=== PATIENT | female | born 1985 | race Caucasian/White ===

== ENCOUNTER 2019-09-05 17:18 | Outpatient (REF) | payer OTHER, SELFPAY ==
[2019-09-07 15:13] LABS: Chlamydia Result Negative (Negative)
[2019-09-09 14:06] LABS: GC Result Negative (Negative)
== END 2019-09-05 17:38 ==
LOC: LBN 17:18
PROVIDERS: Visit Provider Nurse Practitioner Women's Health
DX: Z11.3 Encounter for screening for infections with a predominantly sexual mode of transmission (principal)
CPT/HCPCS: 87491; 87591

== ENCOUNTER 2019-11-02 09:49 | Emergency (ER) | payer OTHER, SELFPAY ==
[2019-11-02 09:52] VITALS: BP 128/78; PULSE 98; RESP 20; TEMP 36.8; O2SAT 97
--- NOTE | 2019-11-02 10:40 | ED.GENADUL_ITS ---
Discharge Plan Disposition Patient Disposition: HOME Condition: Stable Discharge Details Chief Complaint: RespSymp Clinical Impression: Bronchitis Primary Care Provider: None,None ED Provider: Javier Murray Home Meds and New Rx's Prescriptions: New dexamethasone [dexamethasone] 4 MG tablet 8 mg PO DAILY 3 Days Qty: 6 RF: 0 albuterol sulfate 90 mcg/actuation HFA aerosol inhaler 2 - 4 puff IH Q4H PRN (Reason: shortness of breath or wheezing) Qty: 8 RF: 0 No Action Mirena 20 mcg/24 hours (5 yrs) 52 mg intrauterine device 1 device IY ONCE RF: 0 Discharge Instructions Instructions: Acute Bronchitis (ED) Additional Instructions: 1. Drink plenty of fluids. 2. Continue all medications as prescribed. 3. Acetaminophen 1000mg every 4 hours (up to 5 time a day) and/or ibuprofen 600mg every 6 hours as needed for fever or pain. 4. Albuterol 2 to 4 puffs every 4 as needed for difficulty breathing/cough. 5. Decadron 8 mg once a day for 3 days. Return to the Emergency Department (ED) if your condition worsens, does not improve as expected, or for ANY other concerns. Specifically, return if you have new or uncontrolled pain, worsening fever, difficulty breathing, vomiting, or are unable to drink fluids. Stand Alone Forms: Work Release Discharge Data Discharge Date/Time-TO BE ENTERED AT DEPARTURE: 11/02/19 10:37 Medical Decision Making Presents with increased work of breathing, cough, pleuritic chest pain with her cough, and bilateral upper extremity exanthem. Exam significant for diffuse wheezing with a prolonged expiratory phase, mild tachypnea, and a maculopapular rash on her upper extremities. She also has reproducible anterior bilateral chest wall tenderness. Discussed management with albuterol and Decadron. Discharged with prescription for both and a plan for outpatient PCP follow-up. Given usual and customary return instructions prior to discharge. Medical Records Medical records reviewed: Yes I reviewed the patient's medical records. HPI 38 with history of smoking. Presents with days of upper airway congestion, mild dyspnea, increased pain with coughing, and now a bilateral rash in her upper extremities which is pruritic in nature. Reports that a family member has the same constellation of symptoms and has been treated for this after evaluation. Denies significant dyspnea. She has had fevers. Denies palpitations, chest pressure, generalized abdominal pain, change in bowel habits, atypical lower extremity pain or swelling., General Date/Time Provider Initiated Documentation: 11/02/19 10:24 . Related Data Home Medications Medication Instructions Recorded Confirmed levonorgestrel 20 mcg/24 hours (5 1 device IY ONCE 09/05/19 11/02/19 yrs) 52 mg intrauterine device albuterol sulfate 2 - 4 puff IH Q4H PRN #8 gm 11/02/19 dexamethasone 8 mg PO DAILY 3 Days #6 tab 11/02/19 Previous Rx's Medication Instructions Recorded albuterol sulfate 2 - 4 puff IH Q4H PRN #8 gm 11/02/19 dexamethasone 8 mg PO DAILY 3 Days #6 tab 11/02/19 Allergies Allergy/AdvReac Type Severity Reaction Status Date / Time No Known Allergies Allergy Unverified 11/02/19 09:55 General Stated Complaint: RespSymp HARLEEN: 4 Review of Systems All systems reviewed & are unremarkable except as noted in HPI and below PFSH Social History Smoking/Tobacco Use Status: Current every day Tobacco Type: cigarettes Alcohol Intake: current Alcohol Intake frequency: a few times a week Drug use: Never Do you feel safe at home: Yes Do you feel safe in your relationship?: Yes Female Reproductive History Menstrual Duration of menses: 3-5 days control method: none History History 2 Para 2 Hx # Term Pregnancies Multiple births Hx # Pregnancies Ectopic pregnancies AB induced Hx Number of Living Children AB spontaneous Exam Narrative Exam Narrative: Nursing note and vital signs have been reviewed and noted. GENERAL: alert, active, no acute distress, well -hydrated, well-nourished HEENT: atraumatic/normocephalic, PERRLA, EOMI, conjunctiva clear, external ears/canals normal, nasal mucosa normal NECK: supple, full range of motion CARDIOVASCULAR: nl pulses, no edema PULMONARY: Mild tachypnea, diffuse wheezing with no focal deficit; anterior bilateral lower chest wall tenderness is reproduced subjective pain. ABDOMEN: non-distended EXTREMITY: normal muscle tone, all joints with FROM, no deformity NUERO: normal mentation, moving all extremities, normal stance and gait, PSYCH: alert and oriented SKIN: no new rashes or lesions Course Vital Signs Vital signs: Vital Signs Temperature 98.2 F 11/02/19 09:52 Pulse 98 H 11/02/19 09:52 Respiratory Rate 20 11/02/19 09:52 Blood Pressure 128/78 11/02/19 09:52 Pulse Oximetry 97 11/02/19 09:52 Temperature 98.2 F 11/02/19 09:52 Temperature Source Skin 11/02/19 09:52 Pulse 98 H 11/02/19 09:52 Respiratory Rate 20 11/02/19 09:52 Respiratory Effort Non-Labored 11/02/19 09:58 Respiratory Depth Normal 11/02/19 09:58 Blood Pressure 128/78 11/02/19 09:52 Blood Pressure Position Sitting 11/02/19 09:52 Pulse Oximetry 97 11/02/19 09:52 Oxygen Delivery Method Room Air 11/02/19 09:52 Oxygen Flow Rate 0 11/02/19 09:52 Pain Level 10 11/02/19 09:52 Comment 11/02/19 09:52
== END 2019-11-02 10:37 | disposition home or self-care (01) ==
PROVIDERS: Emergency Provider Emergency Medicine
DX: J20.9 Acute bronchitis, unspecified (principal); R07.81 Pleurodynia; B09 Unspecified viral infection characterized by skin and mucous membrane lesions; F17.210 Nicotine dependence, cigarettes, uncomplicated
CPT/HCPCS: 99283

== ENCOUNTER 2020-05-25 14:04 | Outpatient (REF) | payer OTHER, SELFPAY ==
[2020-05-25 20:02] LABS: Anion Gap 7.1 mmol/L (3-11); BUN 10 mg/dL (7-18); CO2 27.9 mmol/L (21.0-32.0); CREATININE 0.73 mg/dL (0.55-1.02); Calcium 9.2 mg/dL (8.5-10.1); Calculated LDL 88 mg/dL (<100); Chloride 105 mmol/L (98-107); Cholesterol 144 mg/dL (<200); Glucose 132 mg/dL (74-106); HDL Cholesterol 30 mg/dL (40-60); Potassium 4.2 mmol/L (3.5-5.1); Sodium 140 mmol/L (136-145); TSH (W/Ref FT4) 1.43 uIU/mL (0.36-3.74); Triglyceride 130 mg/dL (<150)
== END 2020-05-25 14:24 ==
LOC: NCHCN 14:04
PROVIDERS: PCP Nurse Practitioner Family; Visit Provider Nurse Practitioner Family
DX: Z00.00 Encounter for general adult medical examination without abnormal findings (principal)
CPT/HCPCS: 80048; 80061; 84443

== ENCOUNTER 2020-07-19 02:06 | Outpatient (CLI) | payer OTHER, SELFPAY ==
--- NOTE | 2020-07-19 08:30 | DI.US_ITS ---
EXAM: US PELVIS TRANSVAGINAL CLINICAL HISTORY: IUD surveillence, Pelvic pain,R10.2,Z97.5. TECHNIQUE: Transabdominal and transvaginal pelvic ultrasound was performed using standard protocol. COMPARISON: US OB US 2-3 TRIMESTER TRANSABD*P from 07/30/2010 FINDINGS: KIDNEYS: Kidneys are symmetric in size. No evidence of renal calculi. No evidence of hydronephrosis. No renal mass or cyst identified. UTERUS: Position: Anteverted. Size: 6.7 long by 3.2 AP by 4.3 transverse cm Endometrium: 0.5 cm. Normal for patient's menstrual status. There is an intrauterine device in good p osition. Myometrium: Unremarkable. Cervix: Unremarkable. OVARIES: Right: 3.2 x 1.8 x 2.0 cm Cyst or mass: None. Left: 2.7 x 2.1 x 2.1 cm Cyst or mass: Small follicular cyst. DOPPLER: Color: Symmetric and uniform flow to both ovaries. No hyperemia. CUL-DE-SAC: Free fluid: None. Other: None. IMPRESSION: 1. Normal sonographic appearance of the kidneys. 2. Normal-appearing uterus with endometrial stripe within normal limits. Intrauterine device in good position. 3. Unremarkable bilateral ovaries. DATA REPOSITORY:
== END 2020-07-19 02:26 ==
PROVIDERS: PCP Nurse Practitioner Family; Visit Provider Nurse Practitioner Women's Health
DX: R10.2 Pelvic and perineal pain (principal); Z97.5 Presence of (intrauterine) contraceptive device
CPT/HCPCS: 76830; 76856

== ENCOUNTER 2020-08-14 15:58 | Emergency (ER) | payer OTHER, SELFPAY ==
[2020-08-14 16:02] VITALS: BP 140/75; PULSE 101; RESP 17; TEMP 36.2; O2SAT 98
--- NOTE | 2020-08-14 16:14 | ED.GENADUL_ITS ---
Discharge Plan Disposition Patient Disposition: HOME Condition: Stable Discharge Details Clinical Impression: Acute thoracic myofascial strain, Acute lumbar myofascial strain Primary Care Provider: Yvette Ferreira ED Provider: Alondra Araya Home Meds and New Rx's Prescriptions: New methocarbamol 500 mg tablet 500 mg PO Q6H PRN (Reason: muscle spasm) Qty: 14 RF: 0 naproxen [Naprosyn] 500 mg tablet 500 mg PO BID PRN (Reason: pain) Qty: 14 RF: 0 Continued Mirena 20 mcg/24 hours (5 yrs) 52 mg intrauterine device 1 device IY ONCE RF: 0 Discharge Instructions Instructions: Low Back Strain (ED), Thoracic Back Strain (ED) Additional Instructions: Alternate ice and heat to the affected area(s) several times daily for 20 minutes at a time. Alternate tylenol and ibuprofen as needed and directed for pain. You can take the naproxen in place of ibuprofen but do not take together as they are both NSAIDs or anti-inflammatories. Take the methocarbamol and/or tramadol as needed and directed for pain not relieved with Tylenol or ibuprofen. Follow-up with your primary care doctor in 1 week. Return to the emergency department with any worsening or new concerning symptoms. Stand Alone Forms: Work Release Discharge Data Discharge Physician: Alondra Araya Medical Decision Making 1610 -- 35-year-old female with no significant past medical history who presents with midline middle to lower back pain that started after lifting a heavy piece of furniture at home 4 days ago. No cauda equina symptoms. No urinary symptoms. Vitals within normal limits. Patient drove herself to the ER. She has tenderness to palpation of her midline and paraspinal thoracic and lumbar spine and appears mild to moderately uncomfortable. Suspect most likely muscle strain but due to midline tenderness, will also obtain thoracic and lumbar spine x- rays to rule out fracture. Will give a dose of IM Toradol and reassess. test negative. 1750 -- X-rays reviewed and note spasm but no other acute bony abnormality. Patient reassessed and she feels much better. Patient able to ambulate and she feels much more comfortable. Will send home with a prescription for naproxen and methocarbamol. We will also give 2 tabs of tramadol to go. Advised to follow up with the primary care doctor for re-evaluation. Usual and customary return precautions given prior to discharge. Medical Records Medical records reviewed: Yes I reviewed the patient's medical records. Imaging Data Radiologic Study: Radiologist's impression: XR Thoracic Spine, 3 Views Exam date and time: 08/14/2020 5:13 PM Age: 35 years old Clinical indication: Other: Midline thoracic pain, r/o/fx TECHNIQUE: Imaging protocol: XR of the thoracic spine, 3 views. COMPARISON: No relevant prior studies available. FINDINGS: Vertebrae: There are no compression fractures or displaced fractures. There are no subluxations. The disc spaces appear maintained with minimal endplate spurring at a few lower thoracic levels. Soft tissues: Unremarkable. IMPRESSION: 1. No fractures or subluxations. 2. Minimal degenerative changes as described above. XR Lumbosacral Spine, 4 or 5 Views Exam date and time: 08/14/2020 5:15 PM Age: 35 years old Clinical indication: Other: Midline back pain, r/o/fx TECHNIQUE: Imaging protocol: XR of the lumbosacral spine, 4 or 5 views. COMPARISON: No relevant prior studies available. FINDINGS: Vertebrae: There is some straightening of the lumbar lordosis which could reflect muscle spasm or positioning. There are no subluxations. The disc spaces are maintained without degenerative changes. There are no displaced fractures or compression fractures. Both sacroiliac joints appear patent and symmetric. Soft tissues: Unremarkable. Organs: Incidentally noted is an intrauterine device is in the upper midline pelvis. IMPRESSION: 1. No fractures or subluxations. 2. No degenerative changes. HPI General Mode of arrival: ambulatory . Date/Time Provider Initiated Documentation: 08/14/20 16:00 . Limitations to Documentation: no limitations . Information obtained by: patient . HPI Narrative: Patient is a 35-year-old female presents with mid to lower back pain that occurred after lifting a heavy piece of furniture while working in her basement 4 days ago. Patient states she was lifting an approximately 50 pound piece of furniture when she was bending over and felt a sudden onset of midline mid to lower back pain. She states the pain is worse when going from sitting to standing position and with walking. She denies fever, abdominal pain, bowel or bladder incontinence, saddle anesthesia, leg pain, weakness or numbness. She took Tylenol today and has been using a heating pad without relief. Related Data Home Medications Medication Instructions Recorded Confirmed levonorgestrel 20 mcg/24 hours (5 1 device IY ONCE 09/05/19 08/14/20 yrs) 52 mg intrauterine device methocarbamol 500 mg PO Q6H PRN #14 tab 08/14/20 naproxen [Naprosyn] 500 mg PO BID PRN #14 tab 08/14/20 Previous Rx's Medication Instructions Recorded methocarbamol 500 mg PO Q6H PRN #14 tab 08/14/20 naproxen [Naprosyn] 500 mg PO BID PRN #14 tab 08/14/20 Allergies Allergy/AdvReac Type Severity Reaction Status Date / Time No Known Allergies Allergy Verified 07/10/20 15:00 General Stated Complaint: Nk/Back Pain HARLEEN: 4 Review of Systems All systems reviewed & are unremarkable except as noted in HPI and below Constitutional Constitutional: Reports as per HPI, Denies chills and Denies fever(s) Eyes Eyes: Denies blurry vision ENT Ears, Nose, Mouth, and Throat: Denies dizziness, Denies sore throat and Denies throat swelling Cardiovascular Cardiovascular: Denies chest pain and Denies dyspnea Respiratory Respiratory: Denies cough and Denies dyspnea Gastrointestinal Gastrointestinal: Denies abdominal pain, Denies diarrhea and Denies vomiting Genitourinary Genitourinary: Denies hematuria and Denies dysuria Musculoskeletal Musculoskeletal: Reports back pain and Denies numbness Integumentary/Breasts Skin/Breast: Denies lesions and Denies rash Neurologic Neurologic: Denies dizziness, Denies localized weakness and Denies numbness Allergic/Immunologic Allergic/Immunologic: Denies throat swelling [facility] Medical History (Updated 08/14/20 @ 17:41 by Alondra Araya DO) IUD (intrauterine device) in place (09/05/19) Mirena No significant past medical history Surgical History (Updated 08/14/20 @ 16:43 by Alondra Araya DO) No significant past surgical history Social History Smoking/Tobacco Use Status: Current every day Tobacco Type: cigarettes Alcohol Intake: current Alcohol Intake frequency: a few times a week Drug use: Never Do you feel safe at home: Yes Do you feel safe in your relationship?: Yes Female Reproductive History Menstrual Duration of menses: 3-5 days control method: none History History 2 Para 2 Hx # Term Pregnancies Multiple births Hx # Pregnancies Ectopic pregnancies AB induced Hx Number of Living Children AB spontaneous Exam Const General: cooperative, healthy appearing and no acute distress HENMT Head: normal to inspection Face and sinus: normal facial exam Eyes General: appearance normal, both eyes and all related structures EOM: EOM intact bilaterally Neck Neck: normal visual inspection and No submandibular swelling Lymphatic: no lymphadenopathy noted Chest Chest: normal inspection of the chest and no tenderness Resp Effort & Inspection: normal respiratory effort and able to speak in complete sentences Auscultation: clear to auscultation bilaterally Cardio Rate: regular rate Rhythm: regular rhythm GI Inspection: normal to inspection Palpation: soft, not firm, not rigid and nontender Auscultation: normal bowel sounds Back/Spine/Pelvis Thoracic/Lumbar Spine: thoracic and lumbar spine normal to inspection, paraspinal tenderness (Bilateral thoracic and lumbar), thoracic spinal tenderness and lumbar spinal tenderness Pelvis: no pain with anterior-posterior compression Skin General skin exam: no rashes or lesions noted Neuro General: patient alert, patient awake and patient oriented x3 Cognition: normal cognition Speech: speech normal Motor: muscle tone normal throughout Sensory Exam: no sensory deficits noted Extrem General: normal to inspection, full ROM, capillary refill normal, no calf tenderness bilaterally and no edema Psych Appearance: grossly normal Mental Status: mental status grossly normal Speech and Movement: speech and movement normal Affect: normal affect Course Vital Signs Vital signs: Vital Signs Temperature 97.2 F L 08/14/20 16:02 Pulse 101 H 08/14/20 16:02 Respiratory Rate 17 08/14/20 16:02 Blood Pressure 140/75 08/14/20 16:02 Pulse Oximetry 98 08/14/20 16:02 Temperature 97.2 F L 08/14/20 16:02 Temperature Source Tympanic 08/14/20 16:02 Pulse 101 H 08/14/20 16:02 Respiratory Rate 17 08/14/20 16:02 Respiratory Effort 08/14/20 16:06 Blood Pressure 140/75 08/14/20 16:02 Blood Pressure Position Sitting 08/14/20 16:02 Pulse Oximetry 98 08/14/20 16:02 Oxygen Delivery Method Room Air 08/14/20 16:02 Oxygen Flow Rate 0 08/14/20 16:02 Pain Level 9 08/14/20 16:02
--- NOTE | 2020-08-14 16:30 | DI.RAD_ITS ---
EXAM: XR THORACIC SPINE COMPLETE CLINICAL HISTORY: midline thoracic pain, r/o fx. TECHNIQUE: 2D digital imaging was performed. COMPARISON: No exams were available for comparison FINDINGS: BONES: There is no fracture or destructive lesion. The vertebral bodies and posterior elements are un remarkable. DISKS:Alignment is within normal limits. Interverebral disc spaces are maintained. There is minimal s purring from the vertebral endplates. SOFT TISSUE: Visualized lungs are clear. IMPRESSION: Unremarkable radiographs of the thoracic spine. DATA REPOSITORY: RADIATION DOSE DELIVERED:
--- NOTE | 2020-08-14 16:30 | DI.RAD_ITS ---
EXAM: XR LUMBAR SPINE COMPLETE CLINICAL HISTORY: midline back pain, r/o fx. TECHNIQUE: 2D digital imaging was performed. COMPARISON: No exams were available for comparison FINDINGS: BONES: No fracture or destructive lesion. Vertebral bodies are unremarkable. No facet hypertrophy isidro ntified. DISKS: Intervertebral disc spaces are maintained. ALIGNMENT: Lumbar spinal alignment is within normal limits. SOFT TISSUE: Normal. An IUD is incidentally noted. IMPRESSION: Unremarkable radiographs of the lumbar spine. DATA REPOSITORY: RADIATION DOSE DELIVERED:
[2020-08-14] MEDS: Ketorolac 60 MG/2 ML VIAL IM (17:08)
--- NOTE | 2020-08-14 17:35 | DI.VRAD_ITS ---
PROCEDURE INFORMATION: Exam: XR Lumbosacral Spine, 4 or 5 Views Exam date and time: 08/14/2020 5:15 PM Age: 35 years old Clinical indication: Other: Midline back pain, r/o/fx TECHNIQUE: Imaging protocol: XR of the lumbosacral spine, 4 or 5 views. COMPARISON: No relevant prior studies available. FINDINGS: Vertebrae: There is some straightening of the lumbar lordosis which could reflect muscle spasm or positioning. There are no subluxations. The disc spaces are maintained without degenerative changes. There are no displaced fractures or compression fractures. Both sacroiliac joints appear patent and symmetric. Soft tissues: Unremarkable. Organs: Incidentally noted is an intrauterine device is in the upper midline pelvis. IMPRESSION: 1. No fractures or subluxations. 2. No degenerative changes. Dictated and Authenticated by: Abdullahi Blount MD. Ordering:ISSAC Cantu MD
--- NOTE | 2020-08-14 17:38 | DI.VRAD_ITS ---
PROCEDURE INFORMATION: Exam: XR Thoracic Spine, 3 Views Exam date and time: 08/14/2020 5:13 PM Age: 35 years old Clinical indication: Other: Midline thoracic pain, r/o/fx TECHNIQUE: Imaging protocol: XR of the thoracic spine, 3 views. COMPARISON: No relevant prior studies available. FINDINGS: Vertebrae: There are no compression fractures or displaced fractures. There are no subluxations. The disc spaces appear maintained with minimal endplate spurring at a few lower thoracic levels. Soft tissues: Unremarkable. IMPRESSION: 1. No fractures or subluxations. 2. Minimal degenerative changes as described above. Dictated and Authenticated by: Abdullahi Blount MD. Ordering:ISSAC Cantu MD
[2020-08-14] MEDS: Methocarbamol 500 MG TAB (18:03)
[2020-08-14 18:04] VITALS: BP 117/71; PULSE 90; RESP 16; O2SAT 98
== END 2020-08-14 18:05 | disposition home or self-care (01) ==
PROVIDERS: Emergency Provider Physician Assistant; PCP Nurse Practitioner Family
DX: S29.012A Strain of muscle and tendon of back wall of thorax, initial encounter (principal); S39.012A Strain of muscle, fascia and tendon of lower back, initial encounter; X50.0XXA Overexertion from strenuous movement or load, initial encounter
CPT/HCPCS: 81025; 96372; 99284; 72072; 72110; 99285; J1885

== ENCOUNTER 2020-12-18 20:18 | Outpatient (REF) | payer BC, SELFPAY ==
[2020-12-18 20:04] LABS: Anion Gap 8.3 mmol/L (3-11); BUN 10 mg/dL (7-18); CO2 26.7 mmol/L (21.0-32.0); CREATININE 0.6 mg/dL (0.55-1.02); Calcium 9.1 mg/dL (8.5-10.1); Chloride 103 mmol/L (98-107); Glucose 103 mg/dL (74-106); Potassium 4.3 mmol/L (3.5-5.1); Sodium 138 mmol/L (136-145)
== END 2020-12-18 20:19 | disposition home or self-care (01) ==
LOC: NCHCN 20:18
PROVIDERS: PCP Nurse Practitioner Family; Visit Provider Nurse Practitioner Family
DX: R10.9 Unspecified abdominal pain (principal); N39.0 Urinary tract infection, site not specified
CPT/HCPCS: 80048; 87086

== ENCOUNTER 2021-01-13 09:43 | Emergency (ER) | payer BC, SELFPAY ==
--- NOTE | 2021-01-13 09:45 | DI.RAD_ITS ---
EXAM: XR KNEE RT 4V AP,LAT,BENJAMIN,PAT CLINICAL HISTORY: R medial pain. TECHNIQUE: 2D digital imaging was performed. COMPARISON: No exams were available for comparison FINDINGS: There is no evidence of fracture or joint effusion. No joint space narrowing. No bone density pritesh l. No osseous lesions. IMPRESSION: No significant radiographic findings. DATA REPOSITORY: RADIATION DOSE DELIVERED:
[2021-01-13 09:48] VITALS: BP 102/88; PULSE 101; RESP 18; TEMP 37.1; O2SAT 99
--- NOTE | 2021-01-13 10:00 | W.ED.GENAD ---
Discharge Plan Disposition Patient Disposition: HOME Condition: Improving Discharge Details Clinical Impression: Right knee sprain Primary Care Provider: Yvette Ferreira ED Provider: Kings Garcia Home Meds and New Rx's Prescriptions: Continued Mirena 20 mcg/24 hours (5 yrs) 52 mg intrauterine device 1 device IY ONCE RF: 0 Discharge Instructions Instructions: Knee Sprain (ED) Additional Instructions: Crutches and nonweightbearing while he continues to have pain. Wear knee brace while awake and out of bed. Elevate above the level of the heart to reduce pain and swelling, continue to ice 20 minutes at a time. You may use acetaminophen and or ibuprofen as needed for pain. Please call the orthopedic office for a follow-up appointment time. The office number is [phone]. Stand Alone Forms: Work Release Medical Decision Making 35-year-old female was walking her dog on a muddy ground when she slipped yesterday. She states her right knee deviated medially with the lower leg deviating laterally. She was not injured in any other way. She now has right medial knee pain and swelling. She will not tolerate exam for laxity of joint, but I am concerned for medial knee soft tissue derangement. Patient referred for x-ray, given acetaminophen and ice. Radiograph: No acute findings. Will place patient in hinged knee brace, crutches as needed. She will follow up with orthopedics for recheck given concern for internal derangement of the right knee. HPI General Mode of arrival: ambulatory. Date/Time Provider Initiated Documentation: 01/13/21 09:44. Limitations to Documentation: no limitations. Information obtained by: patient. History of Present Illness 35 year old F presents to the emergency department with the chief complaint of Right knee pain, described as moderate, Quality is described as dull and constant, and is localized to the right and lower extremity. Patient reports no radiation. Patient started experiencing this hour(s) and it has been constant. No relieving factors improve symptom(s), No exacerbating factors reported . Patient notes denies syncope. Patient did receive the following treatments prior to arrival, cold therapy Related Data Home Medications Medication Instructions Recorded Confirmed levonorgestrel 20 mcg/24 hours (6 1 device IY ONCE 09/05/19 01/13/21 yrs) 52 mg intrauterine device Allergies Allergy/AdvReac Type Severity Reaction Status Date / Time bee venom protein (honey bee) Allergy Severe Anaphylaxis Unverified 01/13/21 09:55 General Stated Complaint: Orthopedic HARLEEN: 3 Review of Systems Narrative: No other injury. Pain with walking. Has otherwise been well. 4 systems reviewed [facility] Medical History IUD (intrauterine device) in place (09/05/19) Mirena No significant past medical history Surgical History (Updated 08/14/20 @ 16:43 by Alondra Araya DO) No significant past surgical history Social History Smoking/Tobacco Use Status: Current every day Tobacco Type: cigarettes Smoking risk assessment performed?: Yes Alcohol Intake: current Alcohol Intake frequency: a few times a week Drug use: Never Do you feel safe at home: Yes Do you feel safe in your relationship?: Yes Female Reproductive History Menstrual Duration of menses: 3-5 days control method: none History History 2 Para 2 Hx # Term Pregnancies Multiple births Hx # Pregnancies Ectopic pregnancies AB induced Hx Number of Living Children AB spontaneous Exam Narrative Exam Narrative: GEN: awake, alert, oriented 3. Pleasant, well groomed, interactive. HEAD: Normocephalic, atraumatic ENT: Mucous membranes moist, oropharynx unremarkable, External ear exam unremarkablel EXT: Left lower extremity unremarkable. Right lower extremity with medial knee swelling and tenderness along the joint line. Patient is able to extend the knee against gravity. I do not appreciate laxity but exam is limited. Neuro: Grossly normal neurologic exam, conversant, interactive. Psych: Speech fluent, thoughts congruent, affect normal Course Vital Signs Vital signs: Vital Signs Temperature 37.1 C 01/13/21 09:48 Pulse 101 H 01/13/21 09:48 Respiratory Rate 18 01/13/21 09:48 Blood Pressure 102/88 01/13/21 09:48 Pulse Oximetry 99 01/13/21 09:48 Temperature 37.1 C 01/13/21 09:48 Temperature Source Temporal Artery Scan 01/13/21 09:48 Pulse 101 H 01/13/21 09:48 Respiratory Rate 18 01/13/21 09:48 Respiratory Effort Non-Labored 01/13/21 09:52 Blood Pressure 102/88 01/13/21 09:48 Blood Pressure Position Sitting 01/13/21 09:48 Pulse Oximetry 99 01/13/21 09:48 Oxygen Delivery Method Nasal Cannula 01/13/21 09:48 Pain Level 7 01/13/21 09:56
[2021-01-13] MEDS: Acetaminophen 500 MG TAB 1000 MG PO (10:03)
--- NOTE | 2021-01-13 10:53 | DI.VRAD_ITS ---
PROCEDURE INFORMATION: Exam: XR Left Knee Exam date and time: 01/13/2021 10:00 AM Age: 35 years old Clinical indication: Knee; Patient HX: Right medial pain TECHNIQUE: Imaging protocol: XR Left knee. Views: 4 or more views. COMPARISON: No relevant prior studies available. FINDINGS: Bones/joints: There is no evidence of acute fracture.There is no evidence of malalignment or dislocation. Soft tissues: Normal. IMPRESSION: There is no evidence of acute fracture.There is no evidence of malalignment or dislocation. Dictated and Authenticated by: Shaye Pittman MD. Ordering:TADEO Ku MD
== END 2021-01-13 11:12 | disposition home or self-care (01) ==
PROVIDERS: Emergency Provider Emergency Medicine; PCP Nurse Practitioner Family
DX: S83.411A Sprain of medial collateral ligament of right knee, initial encounter (principal); W01.0XXA Fall on same level from slipping, tripping and stumbling without subsequent striking against object, initial encounter
CPT/HCPCS: 29505; 99284; 73564; 99283

== ENCOUNTER 2021-05-16 10:29 | Emergency (ER) | payer BC, SELFPAY ==
[2021-05-16 10:47] VITALS: BP 128/75; PULSE 82; TEMP 37.5; O2SAT 97
[2021-05-16 10:56] LABS: Bilirubin Negative (Negative); Blood Trace-intact (Negative); Clarity Clear (Clear); Glucose Negative (Negative); Ketones Negative (Negative); Leukocyte Esterase Small (Negative); Nitrite Negative (Negative); Urobilinogen 0.2 EU/dL (Up TO 0.2)
--- NOTE | 2021-05-16 11:04 | ED.GENADUL_ITS ---
Discharge Plan Disposition Patient Disposition: HOME Condition: Good Discharge Details Clinical Impression: Abdominal pain Primary Care Provider: Yvette Ferreira ED Provider: Alexandra Del Valle Home Meds and New Rx's Prescriptions: New amoxicillin-pot clavulanate [Augmentin] 875-125 mg tablet 1 tab PO BID Qty: 20 RF: 0 Continued Mirena 20 mcg/24 hours (5 yrs) 52 mg intrauterine device 1 device IY ONCE RF: 0 Discharge Instructions Instructions: Abdominal Pain (ED) Additional Instructions: Take antibiotic as prescribed Tylenol and ibuprofen for pain control Please follow-up with your primary care physician Follow-up with your doctor regarding your ovarian cyst, this is unlikely causing her discomfort Use alternative contraception for protection if you choose to have intercourse of your control may not be effective while you are on antibiotic Yogurt daily while on antibiotic Return if fever, chills, or with any new or worsening complaints Discharge Data Discharge Date/Time-TO BE ENTERED AT DEPARTURE: 05/16/21 14:59 Medical Decision Making Right ovarian cyst, 2 cm, not likely contributing to patient's pain, discussed case with radiologist No obvious evidence of acute pathology and patient CT imaging, patient made aware to follow-up with primary care physician regarding sacroiliitis which is not located in the area of patient's discomfort No cervical motion tenderness Patient given a prescription for Augmentin empirically to cover diverticulitis should have persistent left lower quadrant pain for the last 2 weeks Recheck in 48 hours recommended Did confirm vaginal swab, patient declines risk of STD, I will treat her empirically for sexually transmitted disease as her exam is otherwise benign Return precautions discussed and patient expressed understanding Diagnostic labs do not show acute abnormality The white blood cells 5-10 white blood cells, no evidence of infection Patient declined chance of Medical Records Medical records reviewed: Yes I reviewed the patient's medical records. Lab Data Lab results reviewed: Yes I reviewed the patient's lab results. HPI General Mode of arrival: ambulatory . Date/Time Provider Initiated Documentation: 05/16/21 10:55 . Limitations to Documentation: no limitations . Information obtained by: patient . HPI Narrative: This very pleasant 35-year-old female presents with report of left lower quadrant abdominal pain for the past 2 weeks. Was evaluated by her doctor 2 weeks ago and diagnosed wit h suspected diverticulitis without imaging or diagnostic labs. The implemented diet changes and were going to reassess. She presents today as her pain worsened dramatically. She states that stabbing, left lower quadrant. Moving bowels without difficulty and denies blood in stool. Denies nausea or vomiting. Denies fever or chills. Is monogamous and sexually active with her , denies known sexually transmitted disease. Does have an IUD in place. Denies prior history of similar symptoms in the past. Pain is exacerbated with walking reportedly. Denies any urinary symptoms. Related Data Home Medications Medication Instructions Recorded Confirmed levonorgestrel 20 mcg/24 hours (6 1 device IY ONCE 09/05/19 05/16/21 yrs) 52 mg intrauterine device amoxicillin-pot clavulanate 1 tab PO BID #20 tab 05/16/21 [Augmentin] Previous Rx's Medication Instructions Recorded amoxicillin-pot clavulanate 1 tab PO BID #20 tab 05/16/21 [Augmentin] Allergies Allergy/AdvReac Type Severity Reaction Status Date / Time bee venom protein (honey bee) Allergy Severe Anaphylaxis Unverified 05/16/21 10:54 General Stated Complaint: Abd Prob HARLEEN: 3 Review of Systems All systems reviewed & are unremarkable except as noted in HPI and below PFSH Medical History IUD (intrauterine device) in place (09/05/19) Mirena No significant past medical history Surgical History (Updated 08/14/20 @ 16:43 by Alondra Araya DO) No significant past surgical history Social History Smoking/Tobacco Use Status: Current every day Tobacco Type: cigarettes Smoking risk assessment performed?: Yes Alcohol Intake: current Alcohol Intake frequency: holidays/special occasions only Drug use: Never Substance use type: does not use Do you feel safe at home: Yes Do you feel safe in your relationship?: Yes Female Reproductive History Menstrual Duration of menses: 3-5 days control method: none History History 2 Para 2 Hx # Term Pregnancies Multiple births Hx # Pregnancies Ectopic pregnancies AB induced Hx Number of Living Children AB spontaneous Exam Const General: cooperative and comfortable HENMT Mouth: oral mucosae normal Eyes Sclera: sclerae normal Resp Effort & Inspection: normal respiratory effort Auscultation: clear to auscultation bilaterally Cardio Rate: regular rate Other: Distal pulses intact GI Other: Tenderness with palpation to the suprapubic and left lower quadrant region, no rebound or guarding, no CVA tenderness, no abdominal bruit or pulsatile mass Other: No cervical motion tenderness or adnexal tenderness Skin General skin exam: no rashes or lesions noted Neuro General: patient alert and patient oriented x3 Course Vital Signs Vital signs: Vital Signs Temperature 37.5 C 05/16/21 10:47 Pulse 82 05/16/21 10:47 Blood Pressure 128/75 05/16/21 10:47 Pulse Oximetry 97 05/16/21 10:47 Temperature 37.5 C 05/16/21 10:47 Temperature Source Temporal Artery Scan 05/16/21 10:47 Pulse 82 05/16/21 10:47 Respiratory Effort Non-Labored 05/16/21 10:50 Blood Pressure 128/75 05/16/21 10:47 Blood Pressure Position Sitting 05/16/21 10:47 Pulse Oximetry 97 05/16/21 10:47 Oxygen Delivery Method Room Air 05/16/21 10:47 Oxygen Flow Rate 0 05/16/21 10:47 Pain Level 8 05/16/21 10:47 Lab/Test Results Lab/Test Results: Laboratory Tests Range/Units 05/16/21 05/16/21 10:45 11:02 Magnesium Cancelled Urine Color (Yellow) Yellow Urine Clarity (Clear) Clear Urine pH (5-8) 7.0 Ur Specific [place] (1.005-1.025) 1.020 Urine Protein (Negative) mg/dL Negative Urine Ketones (Negative) mg/dL Negative Urine Blood (Negative) Trace-intact H Urine Nitrite (Negative) Negative Urine Bilirubin (Negative) Negative Urine Urobilinogen (Up TO 0.2) EU/dL 0.2 Ur Leukocyte Esterase (Negative) Small H Urine Glucose (Negative) mg/dL Negative POC Urine Test Start: 05/16/21 10:44 Freq: Status: Complete Protocol: Document 05/16/21 10:54 TB (Rec: 05/16/21 10:54 TB [id number]) Test(Urine)-POC POC- Test(urine) Negative POC- Test(urine) Negative
[2021-05-16 11:05] LABS: Bacteria Few HPF (Negative); C & S Indicated? No/Sq. Contamination; Casts Negative LPF (Negative); Crystals Negative HPF (Negative); Epithelial Cells Moderate HPF (Negative); Mucus Negative (Negative); RBC 0-2 HPF (0-2)
[2021-05-16 11:21] LABS: Abs Immature Grans 0.12 10^3/uL (0.0-0.06); Absolute Eosinophil Count 0.33 10^3/uL (0.0-0.7); Absolute Lymphocyte Count 2.83 10^3/uL (1.2-3.4); Absolute Monocyte Count 0.62 10^3/uL (0.1-0.8); Absolute Neutrophil Count 7.94 10^3/uL (1.2-6.7); Basophils % 0.8; Eosinophils % 2.8; HCT 39.6 % (36.0-46.0); HGB 13.1 g/dL (11.2-15.7); Lymphocytes % 23.7; MCH 32.8 pg (27.0-33.0); MCHC 33.1 % (32.0-36.0); MCV 99.2 fL (80-95); MPV 9.7 fL (8.0-11.0); Monocytes % 5.2; Neutrophils % 66.5; Nucleated RBC 0 %; Platelet Count 350 10^3/uL (130-400); RBC 3.99 10^6/uL (3.93-5.22); RDW 12.3 % (11.7-14.6); RDW-SD 44.9 fL; WBC 11.94 10^3/uL (4.4-10.8)
[2021-05-16] MEDS: ACETAMINOPHEN 1,000 MG/100 ML BTL 400 MG IVPB (11:23)
[2021-05-16 11:37] LABS: ALT 40 U/L (14-59); AST 25 U/L (15-37); Albumin 4.2 g/dL (3.4-5.0); Alkaline Phosphatase 79 U/L (46-116); Anion Gap 10.8 mmol/L (3-11); BUN 10 mg/dL (7-18); Bilirubin, Total 0.3 mg/dL (0.2-1.0); CO2 26.2 mmol/L (21.0-32.0); CREATININE 0.6 mg/dL (0.55-1.02); Calcium 8.8 mg/dL (8.5-10.1); Chloride 103 mmol/L (98-107); Glucose 128 mg/dL (74-106); Sodium 140 mmol/L (136-145); Total Protein 7.7 g/dL (6.4-8.2)
[2021-05-16] MEDS: Omnipaque 350 MG/ML 50 ML BTL PO (12:31)
--- NOTE | 2021-05-16 12:36 | DI.CT_ITS ---
Exam(s) CT ABDOMEN PELVIS W EXAM: CT ABDOMEN PELVIS W CLINICAL HISTORY: LLQ abdominal pain. TECHNIQUE: Imaging Protocol: Axial computed tomography images with coronal and sagittal reformatted images were created and reviewed CONTRAST MATERIAL: Intravenous: Omnipaque 99cc Oral: None COMPARISON: No exams were available for comparison FINDINGS: VISUALIZED LUNG BASES: No significant nodules nor pleural effusions evident. ABDOMEN: There is no ascites. LIVER: There are no focal hepatic lesions evident . GALLBLADDER/BILIARY: No obvious gallbladder pathology. CBD is not dilated. PANCREAS: No evidence of pancreatic mass nor dilatation of the pancreatic duct. SPLEEN: Spleen is not enlarged. No obvious intrasplenic lesions. Splenic and portal veins are paten t. ADRENALS: There are no significant adrenal masses. KIDNEYS:There is a tiny 3 millimeter benign cortical cyst in the anterior left kidney. No other sign ificant focal left kidney findings. No findings in the opposite right kidney. No hydronephrosis on either side. No hydroureter. No obvious finding in the urinary bladder.. ABDOMINAL AORTA: Abdominal aorta is not enlarged. LYMPH NODES:There are few small para-aortic lymph nodes. The largest of these measures 1.2 cm ABDOMINAL WALL: Appearance of the anterior midline abdominal wall is probably hernia repair. No prom inent hernia at this time and no abnormal fluid collection at this level nor elsewhere in the abdomen and pelvis. GI: There is no evidence of bowel obstruction, free air, nor abscess. PELVIS: GI: No evidence of appendicitis.No evidence of sigmoid diverticulitis. LYMPH NODES: Few shotty lymph nodes are noted in both inguinal regions but no gross lymphadenopathy. REPRODUCTIVE: There is a T-shaped IUD in the uterine canal. This appears to be in satisfactory posit ion. There is a cyst in the right ovary which measures 2.2 by 2.0 cm. This probably follicular. No abnormal ovarian masses and no free fluid in the cul-de-sac and adnexal regions. URINARY BLADDER: No calculi nor obvious masses evident OSSEOUS: No significant osseous lesions. Increased density both sides the sacroiliac joints consistent with sacroiliitis. There is no ankylos is of the SI joints. IMPRESSION: 1. Evidence of previous anterior abdominal hernia repair. No evidence of obvious hernia at this time and no abnormal fluid collection or inflammatory changes in this region or elsewhere in the abdomen and pelvis. 2. No evidence of appendicitis nor diverticulitis. 3. There are slightly prominent para-aortic lymph nodes noted. These range up to 1.2 cm size there i s no lymphadenopathy in the pelvis. No splenomegaly. No ascites. 4. IUD in satisfactory position in the endometrial canal. 2 cm cyst in the right ovary is most proba sergey follicular. No abnormal free fluid in the pelvis. Sacroiliitis noted. RADIATION DOSE DELIVERED: 1,086.73mGy.cm Total DLP DATA REPOSITORY: All CT scans at this facility are submitted to the National Radiology Data Registry (NRDR) Dose Index Registry (DIR) with the [employer] (ACR). RADIATION OPTIMIZATION: All CT scans at this facility use at least one of these dose optimization te chniques: automated exposure control; mA and/or kV adjustment per patient size (includes targeted exa ms where dose is matched to clinical indication); or iterative reconstruction.
[2021-05-16] MEDS: Normal Saline - Diluent 50 ML VIAL IV (12:38)
[2021-05-16] MEDS: Omnipaque 350 MG/ML 100 ML BTL 99 ML IJ (12:41)
[2021-05-16 14:08] VITALS: BP 128/75; PULSE 82; RESP 16; TEMP 37.5; O2SAT 97
[2021-05-17 19:39] LABS: Chlamydia Result Negative (Negative); GC Result Negative (Negative)
== END 2021-05-16 14:59 | disposition home or self-care (01) ==
PROVIDERS: Emergency Provider Physician Assistant; PCP Nurse Practitioner Family
DX: R10.31 Right lower quadrant pain (principal); N83.201 Unspecified ovarian cyst, right side
CPT/HCPCS: 36415; 80053; 81025; 87491; 87591; 96360; 99285; 74177; 81003; 81015; 83735; 85025; 87480; 87510; 87660; 99284; J0131; J3490; Q9967

== ENCOUNTER 2021-08-05 15:04 | Outpatient (REF) | payer BC, SELFPAY ==
[2021-08-07 10:50] LABS: COVID-19 RT-PCR UVMMC Result Negative (Negative)
== END 2021-08-05 15:05 | disposition home or self-care (01) ==
LOC: LBN 15:04
PROVIDERS: PCP Nurse Practitioner Family; Visit Provider Physician Assistant
DX: Z20.822 Contact with and (suspected) exposure to COVID-19 (principal); J06.9 Acute upper respiratory infection, unspecified
CPT/HCPCS: U0003

== ENCOUNTER 2022-08-12 16:52 | Outpatient (REF) | payer BC, SELFPAY ==
[2022-08-12 17:52] LABS: Anion Gap 9.1 mmol/L (3-11); BUN 6 mg/dL (7-18); CO2 25.9 mmol/L (21.0-32.0); CREATININE 0.6 mg/dL (0.55-1.02); Calcium 9.2 mg/dL (8.5-10.1); Chloride 103 mmol/L (98-107); Estimated GFR 119.23 (mL/min/1.73m2); Glucose 137 mg/dL (74-106); Potassium 4.1 mmol/L (3.5-5.1); Sodium 138 mmol/L (136-145)
[2022-08-14 11:22] LABS: COVID-19 RT-PCR UVMMC Result Positive (Negative)
== END 2022-08-12 16:53 | disposition home or self-care (01) ==
LOC: LBN 16:52
PROVIDERS: PCP Nurse Practitioner Family; Visit Provider Nurse Practitioner Family
DX: Z20.822 Contact with and (suspected) exposure to COVID-19 (principal)
CPT/HCPCS: 80048; U0003

== ENCOUNTER 2022-12-08 16:57 | Outpatient (REF) | payer BC, SELFPAY ==
[2022-12-08 21:47] LABS: Abs Immature Grans 0.08 10^3/uL (0.0-0.06); Absolute Basophil Count 0.08 10^3/uL (0.0-0.2); Absolute Eosinophil Count 0.28 10^3/uL (0.0-0.7); Absolute Lymphocyte Count 3.42 10^3/uL (1.2-3.4); Absolute Monocyte Count 0.56 10^3/uL (0.1-0.8); Absolute Neutrophil Count 9.47 10^3/uL (1.2-6.7); Basophils % 0.6; HCT 40.3 % (36.0-46.0); HGB 13.5 g/dL (11.2-15.7); Immature Grans % 0.6; Lymphocytes % 24.6; MCH 31.8 pg (27.0-33.0); MCHC 33.5 % (32.0-36.0); MCV 95 fL (80-95); MPV 10.1 fL (8.0-11.0); Neutrophils % 68.2; Platelet Count 401 10^3/uL (130-400); RBC 4.24 10^6/uL (3.93-5.22); RDW-SD 41.6 fL; WBC 13.89 10^3/uL (4.4-10.8)
[2022-12-08 22:25] LABS: ALT 38 U/L (14-59); AST 24 U/L (15-37); Albumin 4.9 g/dL (3.4-5.0); Alkaline Phosphatase 89 U/L (46-116); Anion Gap 12.3 mmol/L (3-11); BUN 8 mg/dL (7-18); Bilirubin, Total 0.5 mg/dL (0.2-1.0); CO2 25.7 mmol/L (21.0-32.0); CREATININE 0.5 mg/dL (0.55-1.02); Chloride 99 mmol/L (98-107); Estimated GFR 124.58 (mL/min/1.73m2); Glucose 109 mg/dL (74-106); Sodium 137 mmol/L (136-145); Total Protein 8.1 g/dL (6.4-8.2)
[2022-12-08 22:34] LABS: Iron 65 ug/dL (50-170); Total Iron Binding Capacity 389 ug/dL (250-450); Transferrin Sat 17 % (15-50)
== END 2022-12-08 16:58 | disposition home or self-care (01) ==
LOC: LBN 16:57
PROVIDERS: PCP Nurse Practitioner Family; Visit Provider Nurse Practitioner Family
DX: R23.3 Spontaneous ecchymoses (principal); R79.89 Other specified abnormal findings of blood chemistry
CPT/HCPCS: 80053; 83540; 83550; 85025

== ENCOUNTER 2023-04-28 11:18 | Emergency (ER) | payer SELFPAY ==
[2023-04-28 11:21] VITALS: BP 142/89; PULSE 120; RESP 16; TEMP 36.9; O2SAT 98
[2023-04-28 12:09] LABS: Abs Immature Grans 0.13 10^3/uL (0.0-0.06); Absolute Basophil Count 0.12 10^3/uL (0.0-0.2); Absolute Eosinophil Count 0.54 10^3/uL (0.0-0.7); Absolute Monocyte Count 0.99 10^3/uL (0.1-0.8); Absolute Neutrophil Count 8.71 10^3/uL (1.2-6.7); Basophils % 0.9; HCT 38.3 % (36.0-46.0); HGB 12.9 g/dL (11.2-15.7); Lymphocytes % 22.8; MCH 32.3 pg (27.0-33.0); MCHC 33.7 % (32.0-36.0); MCV 96 fL (80-95); MPV 9.5 fL (8.0-11.0); Monocytes % 7.3; Platelet Count 358 10^3/uL (130-400); RDW 12.2 % (11.7-14.6); RDW-SD 42.1 fL; WBC 13.61 10^3/uL (4.4-10.8)
[2023-04-28 12:22] LABS: Hemoglobin A1C 6.8 % (<5.7)
[2023-04-28 12:23] LABS: ALT 56 U/L (14-59); AST 24 U/L (15-37); Albumin 3.6 g/dL (3.4-5.0); Alkaline Phosphatase 109 U/L (46-116); Anion Gap 10.6 mmol/L (3-11); BUN 6 mg/dL (7-18); Bilirubin, Total 0.5 mg/dL (0.2-1.0); CO2 26.4 mmol/L (21.0-32.0); CREATININE 0.9 mg/dL (0.55-1.02); Calcium 8.9 mg/dL (8.5-10.1); Chloride 101 mmol/L (98-107); Estimated GFR 84.97 (mL/min/1.73m2); Glucose 211 mg/dL (74-106); Potassium 3.8 mmol/L (3.5-5.1); Sodium 138 mmol/L (136-145); Total Protein 7.5 g/dL (6.4-8.2)
[2023-04-28] MEDS: Doxycycline Hyclate 100 MG CAP PO (12:49)
[2023-04-28 12:56] VITALS: BP 120/59; PULSE 92; RESP 18; O2SAT 99
--- NOTE | 2023-04-28 15:40 | NUR.NOTE ---
Nursing Note: Patient questioning when to start her new medication
--- NOTE | 2023-04-28 15:51 | ED.GENADUL_ITS ---
Discharge Plan Disposition Patient Disposition: Home Discharge Details Clinical Impression: Left foot infection, Hyperglycemia Primary Care Provider: Yvette Ferreira ED Provider: Alexandra Del Valle Home Meds and New Rx's Prescriptions: New metformin 500 mg tablet 500 mg PO BID Qty: 30 0RF doxycycline hyclate 100 mg capsule 100 mg PO BID Qty: 30 0RF Continued Mirena 20 mcg/24 hours (5 yrs) 52 mg intrauterine device 1 device IY ONCE amoxicillin-pot clavulanate [Augmentin] 875-125 mg tablet 1 tab PO BID Qty: 20 0RF Patient Comments: Rx finished Discharge Instructions Instructions: Diabetic Hyperglycemia (ED) Additional Instructions: Take antibiotic twice a day as prescribed Take the metformin twice a day Yogurt daily while on antibiotic Talk to your doctor about your A1c, 6.8 and your blood glucose is 211 here, I suspect he may be developing diabetes Elevate your foot is much as possible Use athlete's foot cream on your feet, twice a daily and allow exposure to air Should you develop fever, chills, significant spreading redness, you should be reassessed in the emergency department more urgently Make sure you follow-up with your doctor at your scheduled appointment Stand Alone Forms: Work Release Referrals: Brenda Huston [ [facility] STAFF PHYSICIAN] - 1 day Discharge Data Discharge Date/Time-TO BE ENTERED AT DEPARTURE: 04/28/23 12:57 Medical Decision Making 37-year-old female presenting with report of rash to left foot and bilateral upper extremities Concern for fungal infection and possibly secondary bacterial infection, fungal and wound cultures for aerobic bacteria pending Empirically started on doxycycline and will use topical antifungals Patient has A1c of 6.8 with a blood glucose of 211, will start on metformin, suspect type 2 diabetes Patient is alert and oriented, she is fairly stable, afebrile and has mild leukocytosis at 13,000 She is given a work note for the rest of the week off and will elevate her foot Return precautions were reviewed in detail and patient expressed understanding HPI General Date/Time Provider Initiated Documentation: 04/28/23 11:34 . HPI Narrative: This 37-year-old female presents with report of painful rash to left foot and hands. States it started about 3 days ago. Denies known traumatic injury. Denies history of similar symptoms in the past. Does states she has a history of eczema but states is very different. She states predominantly she is here because her left foot was becoming more painful. She denies any fever or chills. She denies any polyuria, polydipsia, polyphasia. She denies any known injury. Related Data Home Medications Medication Instructions Recorded Confirmed levonorgestrel 21 mcg/24 hours (8 1 device intrauterine ONCE 09/05/19 04/28/23 yrs) 52 mg intrauterine device (Mirena) amoxicillin 875 mg-potassium 1 tab PO BID #20 tabs 05/16/21 clavulanate 125 mg tablet (Augmentin) doxycycline hyclate 100 mg capsule 100 mg PO BID #30 caps 04/28/23 metformin 500 mg tablet 500 mg PO BID #30 tabs 04/28/23 Previous Rx's Medication Instructions Recorded amoxicillin 875 mg-potassium 1 tab PO BID #20 tabs 05/16/21 clavulanate 125 mg tablet (Augmentin) doxycycline hyclate 100 mg capsule 100 mg PO BID #30 caps 04/28/23 metformin 500 mg tablet 500 mg PO BID #30 tabs 04/28/23 Allergies Allergy/AdvReac Type Severity Reaction Status Date / Time bee venom protein (honey bee) Allergy Severe Anaphylaxis Unverified 04/28/23 11:26 General Stated Complaint: RashLesion HARLEEN: 4 PFSH All Active Problems (Updated 04/28/23 @ 12:48 by KHANG Crandall) Right knee sprain (Acute) Abdominal pain (Acute) Left foot infection (Acute) Hyperglycemia (Acute) IUD (intrauterine device) in place (Acute 09/05/19) Mirena Uterine cramping (Acute) Medical History IUD (intrauterine device) in place (09/05/19) Mirena No significant past medical history Surgical History (Updated 08/14/20 @ 16:43 by Alondra Araya DO) No significant past surgical history Social History Smoking/Tobacco Use Status: Current every day Tobacco Type: cigarettes Smoking risk assessment performed?: Yes Alcohol Intake: current Alcohol Intake frequency: holidays/special occasions only Drug use: Never Substance use type: does not use Do you feel safe at home: Yes Do you feel safe in your relationship?: Yes Female Reproductive History Menstrual Duration of menses: 3-5 days control method: none History History 2 Para 2 Hx # Term Pregnancies Multiple births Hx # Pregnancies Ectopic pregnancies AB induced Hx Number of Living Children AB spontaneous Course Vital Signs Vital signs: Vital Signs Temperature 36.9 C 04/28/23 11:21 Pulse 120 H 04/28/23 11:21 Respiratory Rate 16 04/28/23 11:21 Blood Pressure 142/89 H 04/28/23 11:21 Pulse Oximetry 98 04/28/23 11:21 Temperature 36.9 C 04/28/23 11:21 Temperature Source Oral 04/28/23 11:21 Pulse 92 H 04/28/23 12:56 Respiratory Rate 18 04/28/23 12:56 Respiratory Effort Normal 04/28/23 12:08 Blood Pressure 120/59 L 04/28/23 12:56 Blood Pressure Position Sitting 04/28/23 11:21 Pulse Oximetry 99 04/28/23 12:56 Oxygen Delivery Method Room Air 04/28/23 11:21 Oxygen Flow Rate 0 04/28/23 11:21 Pain Level 10 04/28/23 11:21 Lab/Test Results Lab/Test Results: Laboratory Tests Range/Units 04/28/23 04/28/23 04/28/23 11:59 11:59 11:59 WBC (4.4-10.8) 10^3/uL 13.61 H RBC (3.93-5.22) 10^6/uL 4.00 Hgb (11.2-15.7) g/dL 12.9 Hct (36.0-46.0) % 38.3 MCV (80-95) fL 96 H MCH (27.0-33.0) pg 32.3 MCHC (32.0-36.0) % 33.7 RDW (11.7-14.6) % 12.2 Plt Count (130-400) 10^3/uL 358 MPV (8.0-11.0) fL 9.5 Immature Gran % 1.0 Neutrophils % 64.0 Lymphocytes % 22.8 Monocytes % 7.3 Eosinophils % 4.0 Basophils % 0.9 Nucleated RBC % (0.0-0.3) % 0.0 Absolute Neutrophils (1.2-6.7) 10^3/uL 8.71 H Absolute Lymphocytes (1.2-3.4) 10^3/uL 3.10 Absolute Monocytes (0.1-0.8) 10^3/uL 0.99 H Absolute Eosinophils (0.0-0.7) 10^3/uL 0.54 Absolute Basophils (0.0-0.2) 10^3/uL 0.12 Sodium (136-145) mmol/L 138 Potassium (3.5-5.1) mmol/L 3.8 Chloride (98-107) mmol/L 101 Carbon Dioxide (21.0-32.0) mmol/L 26.4 Anion Gap (3-11) mmol/L 10.6 BUN (7-18) mg/dL 6 L Creatinine (0.55-1.02) mg/dL 0.9 Est GFR (CKD-EPI 2020) (mL/min/1.73m2) 84.97 Glucose (74-106) mg/dL 211 H Hemoglobin A1c (<5.7) % 6.8 H Calcium (8.5-10.1) mg/dL 8.9 Total Bilirubin (0.2-1.0) mg/dL 0.5 AST (15-37) U/L 24 ALT (14-59) U/L 56 Alkaline Phosphatase (46-116) U/L 109 Total Protein (6.4-8.2) g/dL 7.5 Albumin (3.4-5.0) g/dL 3.6
[2023-05-27 09:34] LABS: Fungus Smear No Fungi Seen
== END 2023-04-28 12:57 | disposition home or self-care (01) ==
PROVIDERS: Emergency Provider Physician Assistant; PCP Nurse Practitioner Family
DX: E11.65 Type 2 diabetes mellitus with hyperglycemia (principal); L08.9 Local infection of the skin and subcutaneous tissue, unspecified
CPT/HCPCS: 36416; 80053; 82962; 87102; 87206; 99283; 83036; 85025; 99284

== ENCOUNTER 2023-04-30 14:10 | Emergency (ER) | payer SELFPAY ==
[2023-04-30 14:18] VITALS: BP 138/82; PULSE 111; RESP 18; TEMP 36.9; O2SAT 99
--- NOTE | 2023-04-30 16:45 | DI.RAD_ITS ---
Exam(s) XR FOOT LT COMPLETE EXAM: XR FOOT LT COMPLETE CLINICAL HISTORY: Left foot infection. TECHNIQUE: 2D digital imaging was performed. Three views. COMPARISON: No exams were available for comparison FINDINGS: BONES: No acute fracture is present. No bony destructive lesion is seen. JOINTS: No dislocation present. SOFT TISSUE: Normal. IMPRESSION: Unremarkable radiographs of the left foot. DATA REPOSITORY: RADIATION DOSE DELIVERED:
--- NOTE | 2023-04-30 16:57 | W.ED.GENAD ---
Discharge Plan Disposition Patient Disposition: Home Condition: Stable Discharge Details Clinical Impression: Tinea pedis of left foot, Cellulitis in diabetic foot Primary Care Provider: Yvette Ferreira ED Provider: Yara Garcia Home Meds and New Rx's Prescriptions: Continued Mirena 20 mcg/24 hours (5 yrs) 52 mg intrauterine device 1 device IY ONCE amoxicillin-pot clavulanate [Augmentin] 875-125 mg tablet 1 tab PO BID Qty: 20 0RF Patient Comments: Rx finished metformin 500 mg tablet 500 mg PO BID Qty: 30 0RF doxycycline hyclate 100 mg capsule 100 mg PO BID Qty: 30 0RF Discharge Instructions Instructions: Athlete's Foot (ED), Cellulitis (ED) Additional Instructions: Keep foot clean and dry as much as possible. Continue using the topical antifungal. Continue using the antibiotic. You may place lambswool between your toes to keep them dry. You may also try Drysol which is a athlete's foot spray. May also consider applying Burow's solution to the area as a warm compress. Please follow-up with podiatry within the next 5 days. You were placed on a care management list to assist you in getting an appointment. X-ray is within normal limits and your labs are improving. Podiatry phone number [phone], Please call to make an appointment. If you are unable to get in with podiatry within the next 5 days or so please follow-up with your PCP. Follow up with primary care provider in 3-5 days. Return to ED sooner if any worsening or concerns. Increase oral fluids. Please take Tylenol or Ibuprofen with food every 4-6 hours as needed for pain and swelling. Referrals: Yvette Ferreiar [Primary Care Provider] - 3 days Discharge Data Discharge Date/Time-TO BE ENTERED AT DEPARTURE: 04/30/23 18:17 Medical Decision Making 37-year-old female presents to the ER with a chief complaint of left foot infection which seems to be getting worse. Patient was seen here 2 days ago and was prescribed doxycycline and instructed to use an bnsl-inn-gvywsjs athlete's foot fungal regimen. This first began with some sloughing off on her hands 3 weeks ago now it has included the bottom of her left foot and in between her toes. She does have multiple blister type lesions that are oozing to the plantar surface of her left foot. Denies any fever chills no ankle involvement. No heel tenderness. She is also noted to be newly diagnosed diabetic and was placed on metformin. We will repeat labs CBC CMP and lactate level. X-ray of foot ordered. Differential diagnosis includes tinea pedis superinfection, cellulitis most likely mixture of both, contact dermatitis, atopic dermatitis, psoriasis, CBC shows improvement of the white blood cell count 12.34 down from 13 absolute neutrophil 7.11 anion gap 11.3 glucose. Patient given a gram of Rocephin IV here. I did instruct her to continue with the doxycycline as previously prescribed and the topical antifungals. Patient was placed on a follow-up list for podiatry for the next 5 days for tinea pedis superinfection. I am concerned that patient may need debridement. Patient placed in a postop shoe with a bulky dressing. Discussed home care including to keep it clean and dry and let it air out daily stay off it is much as possible. Also instructed to place dressing such as lambswool in between toes to keep them dry. Verbalized understanding. This text was generated using Double Doodsation system, please disregard any oddities of phrase or misspellings. Medical Records Medical records reviewed: Yes I reviewed the patient's medical records. Imaging Data Radiologic Study: Imaging: X-Ray Radiologist's impression: TECHNIQUE: Imaging protocol: Radiologic exam of the left foot. Views: 3 or more views. COMPARISON: No relevant prior studies available. FINDINGS: Bones/joints: Normal. Soft tissues: Normal. IMPRESSION: No acute bony findings. If clinical symptoms persist recommend followup film in 7-10 days. Thank you for allowing us to participate in the care of your patient. Dictated and Authenticated by: Iqra Elam MD Lab Data Lab results reviewed: Yes I reviewed the patient's lab results. Labs: Laboratory Tests Range/Units 04/30/23 04/30/23 04/30/23 17:06 17:06 17:06 WBC (4.4-10.8) 10^3/uL 12.34 H RBC (3.93-5.22) 10^6/uL 4.11 Hgb (11.2-15.7) g/dL 13.1 Hct (36.0-46.0) % 39.2 MCV (80-95) fL 95 MCH (27.0-33.0) pg 31.9 MCHC (32.0-36.0) % 33.4 RDW (11.7-14.6) % 12.1 Plt Count (130-400) 10^3/uL 390 MPV (8.0-11.0) fL 9.3 Immature Gran % 2.8 Neutrophils % 57.6 Lymphocytes % 27.6 Monocytes % 6.2 Eosinophils % 4.5 Basophils % 1.3 Nucleated RBC % (0.0-0.3) % 0.0 Absolute Neutrophils (1.2-6.7) 10^3/uL 7.11 H Absolute Lymphocytes (1.2-3.4) 10^3/uL 3.41 H Absolute Monocytes (0.1-0.8) 10^3/uL 0.77 Absolute Eosinophils (0.0-0.7) 10^3/uL 0.56 Absolute Basophils (0.0-0.2) 10^3/uL 0.16 VBG Lactate (0.6-1.4) mmol/L 0.9 Sodium (136-145) mmol/L 141 Potassium (3.5-5.1) mmol/L 3.8 Chloride (98-107) mmol/L 102 Carbon Dioxide (21.0-32.0) mmol/L 27.7 Anion Gap (3-11) mmol/L 11.3 H BUN (7-18) mg/dL 9 Creatinine (0.55-1.02) mg/dL 0.6 Est GFR (CKD-EPI 2020) (mL/min/1.73m2) 119.23 Glucose (74-106) mg/dL 108 H Calcium (8.5-10.1) mg/dL 9.5 Total Bilirubin (0.2-1.0) mg/dL 0.3 AST (15-37) U/L 24 ALT (14-59) U/L 49 Alkaline Phosphatase (46-116) U/L 97 Total Protein (6.4-8.2) g/dL 8.4 H Albumin (3.4-5.0) g/dL 3.9 HPI General Mode of arrival: ambulatory. Date/Time Provider Initiated Documentation: 04/30/23 14:27. Limitations to Documentation: no limitations. Information obtained by: patient, RN notes reviewed and old records reviewed. HPI Narrative: 37-year-old female presents to the ER with a chief complaint of left foot infection which seems to be getting worse. Patient was seen here 2 days ago and was prescribed doxycycline and instructed to use an drmr-zqm-ehegsxz athlete's foot fungal regimen. This first began with some sloughing off on her hands 3 weeks ago now it has included the bottom of her left foot and in between her toes. She does have multiple blister type lesions that are oozing to the plantar surface of her left foot. Denies any fever chills no ankle involvement. No heel tenderness. She is also noted to be newly diagnosed diabetic and was placed on metformin. Related Data Home Medications Medication Instructions Recorded Confirmed levonorgestrel 21 mcg/24 hours (8 1 device intrauterine ONCE 09/05/19 04/30/23 yrs) 52 mg intrauterine device (Mirena) amoxicillin 875 mg-potassium 1 tab PO BID #20 tabs 05/16/21 clavulanate 125 mg tablet (Augmentin) doxycycline hyclate 100 mg capsule 100 mg PO BID #30 caps 04/28/23 04/30/23 metformin 500 mg tablet 500 mg PO BID #30 tabs 04/28/23 04/30/23 Previous Rx's Medication Instructions Recorded amoxicillin 875 mg-potassium 1 tab PO BID #20 tabs 05/16/21 clavulanate 125 mg tablet (Augmentin) doxycycline hyclate 100 mg capsule 100 mg PO BID #30 caps 04/28/23 metformin 500 mg tablet 500 mg PO BID #30 tabs 04/28/23 Allergies Allergy/AdvReac Type Severity Reaction Status Date / Time bee venom protein (honey bee) Allergy Severe Anaphylaxis Unverified 04/30/23 14:21 General Stated Complaint: Orthopedic HARLEEN: 3 Review of Systems All systems reviewed & are unremarkable except as noted in HPI and below Constitutional Constitutional: Denies body ache(s), Denies chills and Denies fever(s) Musculoskeletal Musculoskeletal: Reports as per HPI Integumentary/Breasts Skin/Breast: Reports as per HPI, Reports skin swelling, Reports sores and Reports wounds PFSH All Active Problems (Updated 04/30/23 @ 17:52 by Yara Garcia NP) Right knee sprain (Acute) Abdominal pain (Acute) Left foot infection (Acute) Hyperglycemia (Acute) Tinea pedis of left foot (Acute) Cellulitis in diabetic foot (Acute) IUD (intrauterine device) in place (Acute 09/05/19) Mirena Uterine cramping (Acute) Medical History No significant past medical history Surgical History No significant past surgical history Social History Smoking/Tobacco Use Status: Current every day Tobacco Type: cigarettes Smoking risk assessment performed?: Yes Alcohol Intake: current Alcohol Intake frequency: holidays/special occasions only Drug use: Never Substance use type: does not use Do you feel safe at home: Yes Do you feel safe in your relationship?: Yes Female Reproductive History Menstrual Duration of menses: 3-5 days control method: none History History 2 Para 2 Hx # Term Pregnancies Multiple births Hx # Pregnancies Ectopic pregnancies AB induced Hx Number of Living Children AB spontaneous Exam Extrem Left lower extremity: foot Details: abnormal to inspection, tenderness and warmth Ankle/foot/toe images: 1. Sick centimeter by 5 cm area with multiple white pockets of possible purulent drainage, vesiculobullous lesions swelling and tenderness. I do suspect a mixture of fungal and bacterial infection. It does include her toes and in between the webs of her toes. Course Vital Signs Vital signs: Vital Signs Temperature 36.9 C 04/30/23 14:18 Pulse 111 H 04/30/23 14:18 Respiratory Rate 18 04/30/23 14:18 Blood Pressure 138/82 04/30/23 14:18 Pulse Oximetry 99 04/30/23 14:18 Temperature 36.9 C 04/30/23 14:18 Temperature Source Skin 04/30/23 14:18 Pulse 111 H 04/30/23 14:18 Respiratory Rate 18 04/30/23 14:18 Respiratory Effort Normal 04/30/23 16:37 Blood Pressure 138/82 04/30/23 14:18 Pulse Oximetry 99 04/30/23 14:18 Oxygen Delivery Method Room Air 04/30/23 14:18 Oxygen Flow Rate 0 04/30/23 14:18 Pain Level 8 04/30/23 16:37 Comment left foot 04/30/23 14:18
[2023-04-30 17:12] LABS: Lactate 0.9 mmol/L (0.6-1.4)
[2023-04-30 17:15] LABS: Abs Immature Grans 0.34 10^3/uL (0.0-0.06); Absolute Basophil Count 0.16 10^3/uL (0.0-0.2); Absolute Lymphocyte Count 3.41 10^3/uL (1.2-3.4); Basophils % 1.3; Eosinophils % 4.5; HCT 39.2 % (36.0-46.0); HGB 13.1 g/dL (11.2-15.7); Immature Grans % 2.8; Lymphocytes % 27.6; MCH 31.9 pg (27.0-33.0); MCHC 33.4 % (32.0-36.0); MCV 95 fL (80-95); MPV 9.3 fL (8.0-11.0); Monocytes % 6.2; Neutrophils % 57.6; Platelet Count 390 10^3/uL (130-400); RBC 4.11 10^6/uL (3.93-5.22); RDW 12.1 % (11.7-14.6); RDW-SD 42.4 fL; WBC 12.34 10^3/uL (4.4-10.8)
[2023-04-30 17:17] LABS: Absolute Eosinophil Count 0.56 10^3/uL (0.0-0.7); Absolute Monocyte Count 0.77 10^3/uL (0.1-0.8); Absolute Neutrophil Count 7.11 10^3/uL (1.2-6.7)
--- NOTE | 2023-04-30 17:20 | NUR.NOTE ---
Nursing Note: Referral faxed to [facility] Podiatry for tinea pedis infection, newly robert diabetic/5 days.
[2023-04-30 17:29] LABS: ALT 49 U/L (14-59); AST 24 U/L (15-37); Albumin 3.9 g/dL (3.4-5.0); Alkaline Phosphatase 97 U/L (46-116); Anion Gap 11.3 mmol/L (3-11); BUN 9 mg/dL (7-18); Bilirubin, Total 0.3 mg/dL (0.2-1.0); CO2 27.7 mmol/L (21.0-32.0); CREATININE 0.6 mg/dL (0.55-1.02); Calcium 9.5 mg/dL (8.5-10.1); Chloride 102 mmol/L (98-107); Estimated GFR 119.23 (mL/min/1.73m2); Glucose 108 mg/dL (74-106); Potassium 3.8 mmol/L (3.5-5.1); Sodium 141 mmol/L (136-145); Total Protein 8.4 g/dL (6.4-8.2)
--- NOTE | 2023-04-30 17:42 | DI.VRAD_ITS ---
PROCEDURE INFORMATION: Exam: XR Left Foot Exam date and time: 04/30/2023 5:22 PM Age: 37 years old Clinical indication: Pain; Foot; Left TECHNIQUE: Imaging protocol: Radiologic exam of the left foot. Views: 3 or more views. COMPARISON: No relevant prior studies available. FINDINGS: Bones/joints: Normal. Soft tissues: Normal. IMPRESSION: No acute bony findings. If clinical symptoms persist recommend followup film in 7-10 days. Dictated and Authenticated by: Iqra Elam MD. Ordering:LUIS F Livingston MD
[2023-04-30] MEDS: cefTRIAXone 1 GM/50 ML BAG IVPB (17:47)
== END 2023-04-30 18:17 | disposition home or self-care (01) ==
PROVIDERS: Emergency Provider Registered Nurse Emergency; PCP Nurse Practitioner Family
DX: E11.628 Type 2 diabetes mellitus with other skin complications (principal); B35.3 Tinea pedis
CPT/HCPCS: 36415; 80053; 96365; 99284; 73630; 83605; 85025; J0696

== ENCOUNTER 2023-08-13 13:35 | Outpatient (REF) | payer MEDICAID, SELFPAY ==
[2023-08-13 20:31] LABS: Hemoglobin A1C 6.3 % (<5.7)
[2023-08-15 10:09] LABS: HIV-1/2 Ag & Ab Screen Negative (Negative)
[2023-08-15 15:03] LABS: Chlamydia Result Negative (Negative); GC Result Negative (Negative)
[2023-08-17 10:42] LABS: Syphilis Serology (RPR) Negative (Negative)
[2023-08-17 12:03] LABS: Hepatitis C Ab w Rflx HCV PCR Negative (Negative)
== END 2023-08-13 13:36 | disposition home or self-care (01) ==
LOC: NCHCN 13:35
PROVIDERS: PCP Nurse Practitioner Family; Visit Provider Nurse Practitioner Family
DX: Z11.3 Encounter for screening for infections with a predominantly sexual mode of transmission (principal); E11.65 Type 2 diabetes mellitus with hyperglycemia
CPT/HCPCS: 86803; 87389; 87491; 87591; 83036; 86592

== ENCOUNTER 2023-09-16 17:09 | Outpatient (REF) | payer MEDICAID, SELFPAY ==
--- NOTE | 2023-09-16 12:00 | PAPFT_PTH ---
PATIENT: Irvin Cade LOC: [facility]#:[id number] AGE/SX: 38/F ROOM: RE09/16/[address]: BRENDA HUSTON : 1985 BED: DIS: 09/16/2023 SPEC #: [id number] RECD: 09/16/23 17:37 STATUS: ARIELLAMikhail REQ #: [id number] SHERRY: 09/16/23 12:[address]: Brenda Huston DEPT: PENDING SALE TO [facility] Cytology RECD BY: Alexandra Shea ENTERED: 09/16/23 17:37 SP TYPE: PAPFT OTHR DR: Yvette Ferreira Tissues: 1 - CX/ENDOCX FOR PAP SMEARS Procedures: PAP THIN PREP/[facility] Screening HPV DNA PROBE Comments: (HPV 16 & 18/45) (CHLAMYDIA/GC)
[2023-09-18 12:40] LABS: Chlamydia Result Negative (Negative); GC Result Negative (Negative)
== END 2023-09-16 17:10 | disposition home or self-care (01) ==
LOC: NCHCN 17:09
PROVIDERS: PCP Nurse Practitioner Family; Visit Provider Nurse Practitioner Family
DX: Z12.4 Encounter for screening for malignant neoplasm of cervix (principal); Z11.51 Encounter for screening for human papillomavirus (HPV); R87.810 Cervical high risk human papillomavirus (HPV) DNA test positive
CPT/HCPCS: 87491; 87591; 88142; 87624

== ENCOUNTER → 2023-09-24 01:14 | Outpatient (CLI) | payer MEDICAID, SELFPAY ==
--- NOTE | 2023-09-24 12:00 | DI.US_ITS ---
Exam(s) US PELVIS TRANSVAGINAL EXAM: US PELVIS TRANSVAGINAL CLINICAL HISTORY: Z30.431 Encounter for routine checking of IUD. TECHNIQUE: Transabdominal and transvaginal pelvic ultrasound was performed using standard protocol. COMPARISON: US US PELVIS TRANSVAGINAL from 07/19/2020 FINDINGS: UTERUS: Position: Anteverted. Size: 6.7 long by 4.2 AP by 4.8 transverse cm Endometrium: 0.4 cm. Normal for patient's menstrual status. There is an IUD which is in good position . Myometrium: A 1.1 x 0.7 x 0.9 cm fibroid is seen in the posterior body. Cervix: Unremarkable. OVARIES: Right: 3.0 x 1.2 x 2.0 cm Cyst or mass: No suspicious cystic or solid masses. Left: 2.4 x 1.2 x 2.9 cm Cyst or mass: No suspicious cystic or solid masses. DOPPLER: Color: Symmetric and uniform flow to both ovaries. CUL-DE-SAC: Free fluid: There is a trace amount of free fluid in the pelvis. Other: None. IMPRESSION: 1. Normal-appearing uterus with endometrial stripe within normal limits. 2. The IUD is in good position. 3. Unremarkable bilateral ovaries. DATA REPOSITORY:
== END ==
PROVIDERS: PCP Nurse Practitioner Family; Visit Provider Nurse Practitioner Family
DX: Z30.431 Encounter for routine checking of intrauterine contraceptive device (principal)
CPT/HCPCS: 76830; 76856

== ENCOUNTER 2024-05-16 16:46 | Outpatient (REF) | payer MEDICAID, SELFPAY ==
--- OUTSIDE RECORDS SUMMARY | 2024-05-16 16:48 | XMS_ITS | Encounter Summary ---
Author Organization [facility] Address [address] [place] [address] Care Team Providers Care Emery Wheel Molder Name Role Phone Unavailable Primary Care Provider Unavailabl e Encounter Details Date Type Department Care Team (Late st Contact Info) Description 09/15/2006 Results Only [facility] [address] [place] [address] Maury Welch [place] [id number] [place] [address] Social History Tobacco Use Types Packs/Day Years Used Date Smoking Tobacco: Never Assessed Sex and Gender Information Value Date Recorded Sex Assigned at Not on file Gender Identity Not on file Sexual Orientation Not on file documented as of this encounter Plan of Treatment Not on file documented as of this encounter Procedures Procedure Name Priority Date/Time Associated Diagnosis Comments CYTOPATHOLOGY Routine 09/15/2006 0:00 EST documented in this encounter Results * CYTOPATHOLOGY (09/15/2006 0:00 EST) Pathology Report: CYTOPATHOLOGY REPORT Reports generated via electronic interface contain original data; however they are lacking the format of the original report. Caution should be taken when reading/interpreti ng unformatted reports. Name: ? IRVIN COE ? Accession #: ? [id number] : ? 1985 (Age: 21) ??F ?Collect Date: ? 09/15/2006 Location: ? [facility] ? Receive Date: ? 09/18/2006 Provider: ?MAURY MURRAYM Copy to: ? Specimen/Source: ?ThinPrep Pap Test, Cervix/Endocervix, processed on [employer] ThinPrep Imaging System, with manual evaluation Last Menstrual Period: ? 07/02/06 Menstrual/Pregnanc y Status: ? Other: ? HPVA - HPV testing requested if ASC-US on the current ThinPrep Pap test. ? SPECIMEN ADEQUACY ? Satisfactory for Evaluation - transformation zone component present GENERAL CATEGORIZATION ? Negative for Intraepithelial Lesion or Malignancy INTERPRETATION ? Shift in neto present suggestive of bacterial vaginosis. ? Document reviewed and electronically signed by: ? KORIN Conley(ASCP) ? Report Date: ??09/25/2006 11:11 End of Report [facility] 09/15/2006 09/18/2006 Maury Welch CNM PATHOLOGY ORDERABLES Performing Organization Address City/State/[facility] Co de Phone Number [facility] [address] [place] [address] documented in this encounter Visit Diagnoses Not on filedocumented in this encounter
--- OUTSIDE RECORDS SUMMARY | 2024-05-16 16:48 | XMS_ITS | Encounter Summary ---
Author Organization [facility] Address [address] [place] [address] Care Team Providers Care Ladies Suit Operator Name Role Phone Unknown, Provider Primary Care Provider [phone] Encounter Details Date Type Department Care Team (Late st Contact Info) Description 04/29/2023 Lab Requisition [facility] Pathology & Laboratory Medicine - [facility] [address] [place] [address] Outr Resulting Lab, Provider Social History Tobacco Use Types Packs/Day Years Used Date Smoking Tobacco: Never Assessed Sex and Gender Information Value Date Recorded Sex Assigned at Not on file Gender Identity Not on file Sexual Orientation Not on file documented as of this encounter Plan of Treatment Not on file documented as of this encounter Procedures Procedure Name Priority Date/Time Associated Diagnosis Comments FUNGUS CULTURE/SMEAR Routine 04/28/2023 11:45 EDT documented in this encounter Results * FUNGUS CULTURE/SMEAR (04/28/2023 11:45 EDT) Organism ID No fungi isolated 05/27/2023 9:29 EDT [facility] Fungal Smear No Fungi Seen 05/27/2023 9:29 EDT [facility] Swab ENTIRE FOOT / Unknown 04/28/2023 11:45 EDT 04/29/2023 18:05 EDT Provider Outr Resulting Lab MICROBIOLOGY - GENERAL ORDERABLES [facility] [address] [place] [address] documented in this encounter Visit Diagnoses Not on filedocumented in this encounter Care Teams Ladies Suit Operator Relationship Specialty Start Date End Date Unknown, Provider, PCP - General 04/30/12 documented as of this encounter
--- OUTSIDE RECORDS SUMMARY | 2024-05-16 16:48 | XMS_ITS | Encounter Summary ---
Author Organization [facility] Address [address] [place] [address] Care Team Providers Care Car Deliverer Name Role Phone Unavailable Primary Care Provider Unavailabl e Encounter Details Date Type Department Care Team (Late st Contact Info) Description 03/05/2010 Results Only [facility] Laboratory Services - [facility] [address] [place], [place] [address] Jessica [address] [place], [place] [id number] Social History Tobacco Use Types Packs/Day Years Used Date Smoking Tobacco: Never Assessed Sex and Gender Information Value Date Recorded Sex Assigned at Not on file Gender Identity Not on file Sexual Orientation Not on file documented as of this encounter Plan of Treatment Not on file documented as of this encounter Procedures Procedure Name Priority Date/Time Associated Diagnosis Comments CYTOPATHOLOGY Routine 03/05/2010 0:00 EDT documented in this encounter Results * CYTOPATHOLOGY (03/05/2010 0:00 EDT) Pathology Report: CYTOPATHOLOGY REPORT ? Reports generated via electronic interface contain original data; ? however they are lacking the format of the original report. ? Caution should be taken when reading/interpreti ng unformatted reports. ? Name: ? IRVIN COE ? Accession #: ? [id number] ? : ? 1985 (Age: 24) ??F ?Collect Date: ? 03/05/2010 ? Location: ? [facility] ? Receive Date: ? 03/06/2010 ? Provider: ?JESSICA GR CNM ? Copy to: ? Specimen/Source: ?Pap Test, Cervix/Endocervix, ThinPrep Imaging System ? with manual evaluation ? Last Menstrual Period: ? 03.08.10 ? Menstrual/Pregnanc y Status: ? SPECIMEN ADEQUACY ? Satisfactory for Evaluation ? - transformation zone component present ? GENERAL CATEGORIZATION ? Negative for Intraepithelial Lesion or Malignancy ? INTERPRETATION ? Shift in neto present suggestive of bacterial vaginosis. ? Document reviewed and electronically signed by: ? Lynan Radu, CT(ASCP) ? Report Date: ??03/13/2010 10:49 ? End of Report ? [facility] 03/05/2010 03/06/2010 Jessica Gr CNM PATHOLOGY ORDERABLES [facility] [address] [place] [address] documented in this encounter Visit Diagnoses Not on filedocumented in this encounter
--- OUTSIDE RECORDS SUMMARY | 2024-05-16 16:48 | XMS_ITS | Encounter Summary ---
Author Organization [facility] Address [address] [place] [address] Care Team Providers Care Policy Director Name Role Phone Unknown, Provider Primary Care Provider [phone] Encounter Details Date Type Department Care Team (Late st Contact Info) Description 09/16/2023 Lab Requisition [facility] Pathology & Laboratory Medicine - [facility] [address] [place] [address] Outr Resulting Lab, Provider Social History Tobacco [...] Procedure Name Priority Date/Time Associated Diagnosis Comments CHLAMYDIA/N. GONORRHOEAE AMPLIFIED NUCLEIC ACID, THINPREP Routine 09/16/2023 12:00 EST documented in this encounter Results * CHLAMYDIA/N. GONORRHOEAE AMPLIFIED RNA, THINPREP (09/16/2023 12:00 EST) Neisseria gonorrhoeae Result Negative Negative 09/18/2023 12:36 EST [facility] Chlamydia trachomatis Result Negative Negative 09/18/2023 12:36 EST [facility] Pap Test CERVIX UTERI STRUCTURE / Unknown 09/16/2023 12:00 EST 09/18/2023 8:40 EST Provider Outr Resulting Lab MICROBIOLOGY - GENERAL ORDERABLES [facility] [address] [place] [address] documented in this encounter Visit Diagnoses Not on filedocumented in this encounter Care Teams Policy Director Relationship Specialty Start Date End Date Unknown, Provider, PCP - General 04/30/12 documented as of this encounter
--- OUTSIDE RECORDS SUMMARY | 2024-05-16 16:48 | XMS_ITS | Encounter Summary ---
Author Organization [facility] Address [address] [place] [address] Care Team Providers Care Ore Fielder Name Role Phone Unavailable Primary Care Provider Unavailabl e Encounter Details Date Type Department Care Team (Late st Contact Info) Description 09/12/2004 Results Only [facility] - [facility] [address] [place] [address] Mary Jane Tejeda, NURSING DEPARTMENT CHAIRPERSON [address] [place] [address] Social History Tobacco Use Types Packs/Day Years Used Date Smoking Tobacco: Never Assessed Sex and Gender Information Value Date Recorded Sex Assigned at Not on file Gender Identity Not on file Sexual Orientation Not on file documented as of this encounter Plan of Treatment Not on file documented as of this encounter Procedures Procedure Name Priority Date/Time Associated Diagnosis Comments CYTOPATHOLOGY Routine 09/12/2004 0:00 EST documented in this encounter Results * CYTOPATHOLOGY (09/12/2004 0:00 EST) Pathology Report: CYTOPATHOLOGY REPORT Reports generated via electronic interface contain original data; however they are lacking the format of the original report. Caution should be taken when reading/interpreti ng unformatted reports. Name: ? IRVIN COE ? Accession #: ? [id number] : ? 1985 (Age: 19) ??F ?Collect Date: ? 09/12/2004 Location: ? [facility] ? Receive Date: ? 09/16/2004 Provider: ?MARY JAEN TEJEDA NURSING DEPARTMENT CHAIRPERSON Copy to: ? Specimen/Source: ?ThinPrep Pap Test, Cervix Last Menstrual Period: ? First of Jul 2004 ? SPECIMEN ADEQUACY ? Satisfactory for Evaluation - transformation zone component present GENERAL CATEGORIZATION ? Negative for Intraepithelial Lesion or Malignancy ? Document reviewed and electronically signed by: ? MONALISA Maldonado(ASCP) ? Report Date: ??09/25/2004 10:17 End of Report [facility] 09/12/2004 09/16/2004 Mary Jane Tejeda NURSING DEPARTMENT CHAIRPERSON PATHOLOGY ORDERABLE S [facility] [address] [place] [address] documented in this encounter Visit Diagnoses Not on filedocumented in this encounter
--- OUTSIDE RECORDS SUMMARY | 2024-05-16 16:48 | XMS_ITS | Encounter Summary ---
Author Organization [facility] Address [address] [place] [address] Care Team Providers Care Architect Manager Name Role Phone Unknown, Provider Primary Care Provider [phone] Encounter Details Date Type Department Care Team (Late st Contact Info) Description 12/25/2016 Results Only [facility] [phone] Dorie Clay MD [address] [place] [address] Social History Tobacco Use Types Packs/Day Years Used Date Smoking Tobacco: Never Assessed Sex and Gender Information Value Date Recorded Sex Assigned at Not on file Gender Identity Not on file Sexual Orientation Not on file documented as of this encounter Plan of Treatment Not on file documented as of this encounter Procedures Procedure Name Priority Date/Time Associated Diagnosis Comments PAP TEST- RESULT ONLY Routine 12/25/2016 0:00 EST documented in this encounter Results * PAP TEST- RESULT ONLY (12/25/2016 0:00 EST) Pathology Report: CYTOPATHOLOGY REPORT Reports generated via electronic interface contain original data; however they are lacking the format of the original report. Caution should be taken when reading/interpreti ng unformatted reports. Name: ? IRVIN COE ? Accession #: ? [id number] ? : ? 1985 (Age: 31) ??F ?Collect Date: ? 12/25/2016 ? Location: ? [facility] ? Receive Date: ? 12/26/2016 ? Provider: DORIE CLAY MD Copy to: PEYTON TEJEDA RN ANGIOGRAPHY ? Final Report SPECIMEN ADEQUACY ? Satisfactory for Evaluation - transformation zone component present - scant squamous epithelial component secondary to excessive inflammation GENERAL CATEGORIZATION ? Negative for Intraepithelial Lesion or Malignancy ?? Previous Gynecologic Pathology: ASC-US: 2011 Infection History: Neg for HPV: 2011 Specimen/Source: ??Pap Test, Cervix, ThinPrep Imaging System with manual evaluation Document reviewed and electronically signed by: ? Ruth Dle Cid, KORIN(ASCP)(IAC) ? Report ??Date: 12/31/2016 17:03 HPV with Pap Test ? Date Ordered: ? 12/31/2016 ? Status: ?? Signed Out ?Date Complete: ? 01/01/2017 ? By: ??System Interface ? Date Reported: ? 01/01/2017 ? Interpretation RESULT: Negative for HPV. No E6 or E7 mRNA is detected from HPV types 16,18,31,33,35, 39,45,51,52,56,58, 59,66, and 68 by career coordinator mediated amplification. Comments Document reviewed and electronically signed by: ? System Interface ? Report date: 01/01/2017 By the signature above, the attending physician certifies that he/she has personally conducted a gross and/or microscopic examination of the described specimens and rendered or confirmed the above diagnosis. End of Report [facility] 12/25/2016 12/26/2016 Dorie Clay MD PATHOLOGY ORDERABLES [facility] [address] [place] [address] documented in this encounter Visit Diagnoses Not on filedocumented in this encounter Care Teams Architect Manager Relationship Specialty Start Date End Date Unknown, Provider, PCP - General 04/30/12 documented as of this encounter
--- OUTSIDE RECORDS SUMMARY | 2024-05-16 16:48 | XMS_ITS | Encounter Summary ---
Author Organization [facility] Address [address] [place] [address] Care Team Providers Care Sports Book Board Attendant Name Role Phone Unknown, Provider Primary Care Provider [phone] Encounter Details Date Type Department Care Team (Late st Contact Info) Description 08/13/2023 Lab Requisition [facility] Pathology & Laboratory Medicine - [facility] [address] [place] [address] Outr Resulting Lab, Provider Social History Tobacco [...] Associated Diagnosis Comments CHLAMYDIA/N. GONORRHOEAE AMPLIFIED NUCLEIC ACID Routine 08/13/2023 13:23 EDT documented in this encounter Results * CHLAMYDIA/N. GONORRHOEAE AMPLIFIED RNA (08/13/2023 13:23 EDT) Neisseria gonorrhoeae Result Negative Negative 08/15/2023 14:59 EDT [facility] Chlamydia trachomatis Result Negative Negative 08/15/2023 14:59 EDT [facility] Urine URINE / Unknown 08/13/2023 1 3:23 EDT 08/14/2023 21:31 EDT Narrative [facility] - 08/15/2023 14:59 EDT A first catch urine specimen is acceptable for detection of Gonorrhea and Chlamydia, but might detect up to 10% fewer infections when compared with vaginal and endocervical swab samples. Provider Outr Resulting Lab MICROBIOLOGY - GENERAL ORDERABLES [facility] [address] [place] [address] documented in this encounter Visit Diagnoses Not on filedocumented in this encounter Care Teams Sports Book Board Attendant Relationship Specialty Start Date End Date Unknown, Provider, PCP - General 04/30/12 documented as of this encounter
--- OUTSIDE RECORDS SUMMARY | 2024-05-16 16:48 | XMS_ITS | Encounter Summary ---
Author Organization [facility] Address [address] [place] [address] Care Team Providers Care Furniture Delivery Driver Name Role Phone Unknown, Provider Primary Care Provider Encounter Details Date Type Department Care Team (Latest Contact Info) Description 09/21/2023 Lab Requisition [facility] Pathology & Laboratory Medicine - [facility] [address] [place] [address] Brenda Huston FNP [address] [facility] [address] [place] [id number] Encounter for screening for human papillomavirus (HPV); Encounter for screening for malignant neoplasm of cervix; Encounter for general adult medical examination without abnormal findings Social History Tobacco Use Types Packs/Day Years Used Date Smoking Tobacco: Never Assessed Sex and Gender Information Value Date Recorded Sex Assigned at Not on file Gender Identity Not on file Sexual Orientation Not on file documented as of this encounter Plan of Treatment Not on file documented as of this encounter Procedures Procedure Name Priority Date/Time Associated Diagnosis Comments PAP TEST Today 09/16/2023 12:00 EST Encounter for screening for human papillomavirus (HPV) Encounter for screening for malignant neoplasm of cervix Encounter for general adult medical examination without abnormal findings HPV GENOTYPES 16 AND 18/45 Today 09/16/2023 12:00 EST Encounter for screening for human papillomavirus (HPV) Encounter for screening for malignant neoplasm of cervix Encounter for general adult medical examination without abnormal findings HPV DNA DETECTION WITH GENOTYPING, PCR Today 09/16/2023 12:00 EST Encounter for screening for human papillomavirus (HPV) Encounter for screening for malignant neoplasm of cervix Encounter for general adult medical examination without abnormal findings documented in this encounter Results * HPV GENOTYPES 16 AND 18/45 (09/16/2023 12:00 EST) HPV High Risk type 16, PCR Negative Negative 10/06/2023 15:23 EST [facility] HPV18/45 RNA (HPV18/45) Negative Negative 10/06/2023 15:23 EST [facility] Pap Test CERVIX UTERI STRUCTURE / Unknown 09/16/2023 12:00 EST 09/30/2023 14:18 EST Brenda Huston [facility] MICROBIOLOGY - GENER AL ORDERABLES Performing Organization Address City/[facility] Co de Phone Number [facility] [address] [place] [address] * (ABNORMAL) HUMAN PAPILLOMAVIRUS (HPV) DETECTION-HIGH RISK TYPES (09/16/2023 12:00 EST) HPV other High Risk types, PCR Positive( A) Negative 10/08/2023 14:38 EST [facility] Comment:E6 OR E7 mRNA from o ne or more types of HPV types 16,18,31,33,35,39,45,51,52,56,58,59,66, and 68 is detected by treasury accountant mediated amplification. High and intermediate risk HPV types are associated with most squamous intraepithelial lesions and cervical cancers. Pap Test CERVIX UTERI STRUCTURE / Unknown 09/16/2023 12:00 EST 09/30/2023 14:18 EST Brenda Huston [facility] MICROBIOLOGY - GENER AL ORDERABLES Performing Organization Address City/[facility]/ZIP Co de Phone Number [facility] [address] [place] [address] * PAP TEST (09/16/2023 12:00 EST) Specimens A. Cervix and/or Endocervix , ThinPrep Imaging System with Manual Evaluation 10/08/2023 14:38 EST [facility] Specimen Adequacy Satisfactory for Evaluation - transformation zone component present 10/08/2023 14:38 [facility] General Categorization Negative for intraepithelial lesion or malignancy 10/08/2023 14:38 [facility] Attestation . 10/08/2023 14:38 [facility] at 1438 Clinical History See below 10/08/20 14:38 [facility] HPV The result for the Human Papillomavirus (HPV) Detection-High Risk Types is Positive . E6 OR E7 mRNA from one or more types of HPV types 16,18,31,33,35,39 ,45,51,52,56,58,5 9,66, and 68 is detected by treasury accountant mediated amplification. High and intermediate risk HPV types are associated with most squamous intraepithelial lesions and cervical cancers. Testing was performed on specimen [id number] and was resulted on 10/01/2023 1753 EST by BRADFORD, LAB INSTRUMENT RESULTS IN 10/08/2023 14:38 [facility] Genotyping 16 & 18/45 The results for the HPV Genotypes 16 and 18/45 are Negative for the HPV16 RNA and Negative for the HPV18/45 RNA (HPV18/45). Testing was performed on specimen [id number] and was resulted on 10/06/2023 1523 EST by BRADF[facility], LAB INSTRUMENT RESULTS IN 10/08/2023 14:38 [facility] Performing Lab [facility] 10/08/2023 14:38 [facility] Scanned Images 10/08/2023 14:38 [facility] Pap Test CERVIX UTERI STRUCTURE / Unknown 09/16/2023 12:00 EST 09/21/2023 10:32 EST Brenda Huston ICT DEVELOPMENT MANAGER PATHOLOGY ORDERABLES [facility] [address] [place] [address] documented in this encounter Visit Diagnoses Diagnosis Encounter for screening for human papillomavirus (HPV) Special screening examination for human papillomavirus (HPV) Encounter for screening for malignant neoplasm of cervix Screening for malignant neoplasm of the cervix Encounter for general adult medical examination without abnormal findings Unspecified general medical examination documented in this encounter Care Teams Furniture Delivery Driver Relationship Specialty Start Date End Date Unknown, Provider, PCP - General 04/30/12 documented as of this encounter
--- OUTSIDE RECORDS SUMMARY | 2024-05-16 16:48 | XMS_ITS | Clinical Summary ---
Author Organization [facility] Address [address] [place] [address] Care Team Providers Care Process Development Chemist Name Role Phone Unknown, Provider Primary Care Provider [phone] Social History Tobacco Use Types Packs/Day Years Used Date Smoking Tobacco: Never Assessed Sex and Gender Information Value Date Recorded Sex Assigned at Not on file Gender Identity Not on file Sexual Orientation Not on file Plan of Treatment Health Maintenance Due Date Last Done Comments Hepatitis B Vaccine (1 of 3 - 19+ 3-dose series) 06/22 COVID-19 Vaccine ( season) 2023 Hepatitis C Screen Completed 08/13/2023 Procedures Procedure Name Priority Date/Time Associated Diagnosis Comments HEPATITIS C AB W REFLEX TO HCV RNA BY PCR Routine 08/13/2023 13:23 EDT from Last 3 Months or Most Recently Relevant to Health Maintenance Results * HEPATITIS C AB W REFLEX TO HCV RNA BY PCR (08/13/2023 13:23 EDT) Hep C Antibody Negative Negative 08/17/2023 11:57 EDT [facility] Blood VENOUS BLOOD / Unknown 08/13/2023 13:23 EDT 08/14/2023 17:54 EDT Provider Outr Resulting Lab CHEMISTRY & BLOOD GAS ORDERABLES [facility] [address] [place] [address] from Last 3 Months or Most Recently Relevant to Health Maintenance Care Teams Process Development Chemist Relationship Specialty Start Date End Date Unknown, Provider, [facility] - General 04/30/12
--- OUTSIDE RECORDS SUMMARY | 2024-05-16 16:48 | XMS_ITS | Encounter Summary ---
Author Organization [facility] Address [address] [place] [address] Care Team Providers Care Embroiderer Name Role Phone Unknown, Provider Primary Care Provider [phone] Encounter Details Date Type Department Care Team (Late st Contact Info) Description 08/13/2022 Lab Requisition [facility] Pathology & Laboratory Medicine - [facility] [address] [place] [address] Outr Resulting Lab, Provider Social History Tobacco [...] Procedure Name Priority Date/Time Associated Diagnosis Comments ZZCOVID-19 TEST [facility] PCR Today 08/12/2022 15:50 EDT COVID-19 TESTING Routine 08/12/2022 15:5 0 EDT documented in this encounter Results * COVID-19 TEST [facility] PCR (08/12/2022 15:50 EDT) Swab 08/12/2022 15:5 0 EDT 08/13/2022 16:19 EDT Provider Outr Resulting Lab MICROBIOLOGY - GENERAL ORDERABLES [facility] [address] [place] [address] * (ABNORMAL) COVID-19 TESTING (08/12/2022 15:50 EDT) COVID-19 rt-PCR Result Positive( AA) Negative 08/14/2022 11:18 EDT [facility] Comment: This test has not been FDA cleared or approved. This test has been authorized by FDA under an EUA for use by authorized laboratories. This test has been authorized only for detection of nucleic acid from 2019-nCoV, not for any other viruses or pathogens. This test is only authorized for the duration of the declaration that circumstances exist justifying the authorization of emergency use of in vitro diagnostic tests for detection and/or diagnosis of 2019-nCoV under section 564(b)(1) of Act, 21 U.S.C ?? 360bbb-3(b) (1), unless the authorization is terminated or revoked sooner. Testing was performed using the frederick SARS-CoV-2 assay ([employer] on the [employer] [address] System Performing Lab [address] [facility] 08/14/2022 11:18 EDT [facility] Swab 08/12/2022 15:5 0 EDT 08/13/2022 16:19 EDT Provider Outr Resulting Lab MICROBIOLOGY - GENERAL ORDERABLES [facility] [address] [place] [address] documented in this encounter Visit Diagnoses Not on filedocumented in this encounter Additional Health Concerns Infection Onset Date Last Indicated Resolved Time COVID-19 08/12/2022 08/12/2022 09/01/2022 22:1 5 EST documented as of this encounter Care Teams Embroiderer Relationship Specialty Start Date End Date Unknown, Provider, PCP - General 04/30/12 documented as of this encounter
--- OUTSIDE RECORDS SUMMARY | 2024-05-16 16:48 | XMS_ITS | Encounter Summary ---
Author Organization [facility] Address [address] [place] [address] Care Team Providers Care Executive Director Sheltered Workshop Name Role Phone Unknown, Provider Primary Care Provider [phone] Encounter Details Date Type Department Care Team (Late st Contact Info) Description 09/06/2019 Lab Requisition [facility] Pathology & Laboratory Medicine - [facility] [address] [place] [address] Unknown, Provider, Social History Tobacco Use Types Packs/Day Years [...] Comments CHLAMYDIA/N. GONORRHOEAE AMPLIFIED NUCLEIC ACID Routine 09/05/2019 15:10 EST documented in this encounter Results * CHLAMYDIA/N. GONORRHOEAE AMPLIFIED RNA (09/05/2019 15:10 EST) Neisseria gonorrhoeae Result Negative Negative 09/07/2019 15:08 EST [facility] Chlamydia trachomatis Result Negative Negative 09/07/2019 15:08 EST [facility] Swab CERVIX UTERI STRUCTURE / Unknown 09/05/2019 15:10 EST 09/06/2019 20:03 EST Provider Unknown MICROBIOLOGY - GENER AL ORDERABLES [facility] [address] [place] [address] documented in this encounter Visit Diagnoses Not on filedocumented in this encounter Additional Health Concerns Infection Onset Date Last Indicated Resolved Time COVID-19 08/12/2022 08/12/2022 09/01/2022 22:1 5 EST documented as of this encounter Care Teams Executive Director Sheltered Workshop Relationship Specialty Start Date End Date Unknown, Provider, PCP - General 04/30/12 documented as of this encounter
--- OUTSIDE RECORDS SUMMARY | 2024-05-16 16:48 | XMS_ITS | Encounter Summary ---
Author Organization [facility] Address [address] [place] [address] Care Team Providers Care Workplace Rehabilitation Officer Name Role Phone Unknown, Provider Primary Care Provider [phone] Encounter Details Date Type Department Care Team (Late st Contact Info) Description 08/13/2023 Lab Requisition [facility] Pathology & Laboratory Medicine - [facility] [address] [place] [address] Outr Resulting Lab, Provider Social History Tobacco [...] Procedure Name Priority Date/Time Associated Diagnosis Comments HIV 1/2 ANTIGEN AND ANTIBODY, 4TH GENERATION Routine 08/13/2023 13:23 EDT documented in this encounter Results * HIV 1/2 ANTIGEN AND ANTIBODY, 4TH GENERATION (08/13/2023 13:23 EDT) HIV 1 and 2 Antibody/p24 Antigen, 4th Generation Negative Negative 08/15/2023 10:05 EDT [facility] Comment:If acute HIV-1 infec tion is suspected in a high risk patient, submit plasma specimen for HIV-1 RNA quantitation test. Blood VENOUS BLOOD / Unknown 08/13/2023 13:23 EDT 08/14/2023 17:54 EDT Narrative [facility] - 08/15/2023 10:05 EDT Fourth Generation assay performed on the Siemens Centaur XPT. Provider Outr Resulting Lab IMMUNOLOGY A ND SEROLOGY ORDERABLES [facility] [address] [place] [address] documented in this encounter Visit Diagnoses Not on filedocumented in this encounter Care Teams Workplace Rehabilitation Officer Relationship Specialty Start Date End Date Unknown, Provider, PCP - General 04/30/12 documented as of this encounter
--- OUTSIDE RECORDS SUMMARY | 2024-05-16 16:48 | XMS_ITS | Encounter Summary ---
Author Organization [facility] Address [address] [place] [address] Care Team Providers Care Metal Cleaner Name Role Phone Unknown, Provider Primary Care Provider [phone] Encounter Details Date Type Department Care Team (Late st Contact Info) Description 08/13/2023 Lab Requisition [facility] Pathology & Laboratory Medicine - [facility] [address] [place] [address] Outr Resulting Lab, Provider Social History Tobacco [...] Procedure Name Priority Date/Time Associated Diagnosis Comments SYPHILIS SEROLOGY Routine 08/13/2023 13: 23 EDT HEPATITIS C AB W REFLEX TO HCV RNA BY PCR Routine 08/13/2023 13:23 EDT documented in this encounter Results * SYPHILIS SEROLOGY (08/13/2023 13:23 EDT) Syphilis Serology Negative Negative 08/17/2023 10:38 EDT [facility] Blood VENOUS BLOOD / Unknown 08/13/2023 13:23 EDT 08/14/2023 17:54 EDT Provider Outr Resulting Lab IMMUNOLOGY A ND SEROLOGY ORDERABLES [facility] [address] [place] [address] * HEPATITIS C AB W REFLEX TO HCV RNA BY PCR (08/13/2023 13:23 EDT) Hep C Antibody Negative Negative 08/17/2023 11:57 EDT [facility] Blood VENOUS BLOOD / Unknown 08/13/2023 13:23 EDT 08/14/2023 17:54 EDT Provider Outr Resulting Lab CHEMISTRY & BLOOD GAS ORDERABLES [facility] [address] [place] [address] documented in this encounter Visit Diagnoses Not on filedocumented in this encounter Care Teams Metal Cleaner Relationship Specialty Start Date End Date Unknown, Provider, PCP - General 04/30/12 documented as of this encounter
--- OUTSIDE RECORDS SUMMARY | 2024-05-16 16:48 | XMS_ITS | Encounter Summary ---
Author Organization [facility] Address [address] [place] [address] Care Team Providers Care Cosmetology Educator Name Role Phone Unavailable Primary Care Provider Unavailabl e Encounter Details Date Type Department Care Team ([facility] st Contact Info) Description 04/22/2012 Results Only [facility] [phone] Shukri Newman MD [address] [place] [address] Social History Tobacco Use Types Packs/Day Years [...] Diagnosis Comments PAP TEST- RESULT ONLY Routine 04/22/2012 0:00 EDT documented in this encounter Results * PAP TEST- RESULT ONLY (04/22/2012 0:00 EDT) Pathology Report: CYTOPATHOLOGY REPORT Reports generated via electronic interface contain original data; however they are lacking the format of the original report. Caution should be taken when reading/interpreti ng unformatted reports. Name: ? IRVIN COE ? Accession #: ? [id number] ? : ? 1985 (Age: 26) ??F ?Collect Date: ? 04/22/2012 ? Location: ? [facility] ? Receive Date: ? 04/23/2012 ? Provider: SHUKRI NEWMAN MD Copy to: ? Final Report SPECIMEN ADEQUACY ? Satisfactory for Evaluation - transformation zone component present GENERAL CATEGORIZATION ? Epithelial Cell Abnormality INTERPRETATION ? Squamous Cell Abnormality - Atypical squamous cells, undetermined significance (ASC-US). EDUCATIONAL NOTES/RECOMMENDATI ONS ? [facility] recommends following the 2006 Consensus Guidelines for the Management of Women with Abnormal Cervical Cancer Screening Tests (JLGTD, 2007;11(4):201-222 ). ??Consensus guidelines are available online at www.ASCCP.org. Last Menstural Period: 04/14/12 Other: Additional clinical information: Last pap 03/05/10 normal Specimen/Source: ??Pap Test, Cervix/Endocervix, ThinPrep Imaging System with manual evaluation Document reviewed and electronically signed by: ? ROSALIE GU MD ? Report ??Date: 04/29/2012 15:18 HPV with Pap Test ? Date Ordered: ? 04/29/2012 ? Status: ?? Signed Out ?Date Complete: ? 05/03/2012 ? By: ??System Interface ? Date Reported: ? 05/03/2012 ? Interpretation RESULT: Negative for HPV. No E6 or E7 mRNA is detected from HPV types 16,18,31,33,35, 39,45,51,52,56,58, 59,66, and 68 by gear milling machine set up operator mediated amplification. Comments Document reviewed and electronically signed by: ? System Interface ? Report date: 05/03/2012 By the signature above, the attending physician certifies that he/she has personally conducted a gross and/or microscopic examination of the described specimens and rendered or confirmed the above diagnosis. End of Report [facility] 04/22/2012 04/23/2012 Shukri Newman MD PATHOLOGY ORDERABLES Performing Organization Address City/State/[facility] Co de Phone Number [facility] [address] [place] [address] documented in this encounter Visit Diagnoses Not on filedocumented in this encounter
--- OUTSIDE RECORDS SUMMARY | 2024-05-16 16:48 | XMS_ITS | Encounter Summary ---
Author Organization [facility] Address [address] [place] [address] Care Team Providers Care Resident Care Coordinator Name Role Phone Unknown, Provider Primary Care Provider [phone] Encounter Details Date Type Department Care Team (Late st Contact Info) Description 08/06/2021 Lab Requisition [facility] Pathology & Laboratory Medicine - [facility] [address] [place] [address] Outr Resulting Lab, Provider Social History Tobacco [...] Priority Date/Time Associated Diagnosis Comments ZZCOVID-19 TEST [facility] PCR Today 08/05/2021 12:40 EDT COVID-19 TESTING Routine 08/05/2021 12:4 0 EDT documented in this encounter Results * COVID-19 TEST [facility] PCR (08/05/2021 12:40 EDT) Swab ENTIRE NASOPHARYNX / Unknown 08/05/2021 12:40 EDT 08/06/2021 16:53 EDT Provider Outr Resulting Lab MICROBIOLOGY - GENERAL ORDERABLES [facility] [address] [place] [address] * COVID-19 TESTING (08/05/2021 12:40 EDT) COVID-19 rt-PCR Result Negative Negative 08/07/2021 10:44 EDT [facility] Comment: This test [...] the authorization is terminated or revoked sooner. Negative results do not preclude 2019-nCoV infection and should not be used as the sole basis for treatment or other patient management decisions. Negative results must be combined with clinical observations, patient history, and epidemiological information. Testing was performed using the frederick SARS-CoV-2 assay ([employer] on the [employer] [address] System Performing Lab [address] [facility] Lab 08/07/2021 10:44 EDT [facility] Swab 08/05/2021 12:4 0 EDT 08/06/2021 16:53 EDT Provider Outr Resulting Lab MICROBIOLOGY - GENERAL ORDERABLES Performing Organization Address City/State/[facility] Co de Phone Number [facility] [address] [place] [address] documented in this encounter Visit Diagnoses Not on filedocumented in this encounter Additional Health Concerns Infection Onset Date Last Indicated Resolved Time COVID-19 08/12/2022 08/12/2022 09/01/2022 22:1 5 EST documented as of this encounter Care Teams Resident Care Coordinator Relationship Specialty Start Date End Date Unknown, Provider, PCP - General 04/30/12 documented as of this encounter
--- OUTSIDE RECORDS SUMMARY | 2024-05-16 16:48 | XMS_ITS | Encounter Summary ---
Author Organization [facility] Address [address] [place] [address] Care Team Providers Care Pony Ride Attendant Name Role Phone Unknown, Provider Primary Care Provider [phone] Encounter Details Date Type Department Care Team (Late st Contact Info) Description 05/16/2021 Lab Requisition [facility] Pathology & Laboratory Medicine - [facility] [address] [place] [address] Outr Resulting Lab, Provider Social History Tobacco [...] Comments CHLAMYDIA/N. GONORRHOEAE AMPLIFIED NUCLEIC ACID Routine 05/16/2021 13:30 EDT documented in this encounter Results * CHLAMYDIA/N. GONORRHOEAE AMPLIFIED RNA (05/16/2021 13:30 EDT) Neisseria gonorrhoeae Result Negative Negative 05/17/2021 19:32 EDT [facility] Chlamydia trachomatis Result Negative Negative 05/17/2021 19:32 EDT [facility] Swab ENTIRE WALL OF CERVIX / Unknown 05/16/2021 13:30 EDT 05/16/2021 21:24 EDT Provider Outr Resulting Lab MICROBIOLOGY - GENERAL ORDERABLES [facility] [address] [place] [address] documented in this encounter Visit Diagnoses Not on filedocumented in this encounter Additional Health Concerns Infection Onset Date Last Indicated Resolved Time COVID-19 08/12/2022 08/12/2022 09/01/2022 22:1 5 EST documented as of this encounter Care Teams Pony Ride Attendant Relationship Specialty Start Date End Date Unknown, Provider, PCP - General 04/30/12 documented as of this encounter
--- OUTSIDE RECORDS SUMMARY | 2024-05-16 16:48 | XMS_ITS | Referral Summary ---
Author Organization [facility] Address [address] [place] [address] Care Team Providers Care Product Grader Name Role Phone Unknown, Provider Primary Care Provider [phone] Social History Tobacco Use Types Packs/Day Years Used Date Smoking Tobacco: Never Assessed Sex and Gender Information Value Date Recorded Sex Assigned at Not on file Gender Identity Not on file Sexual Orientation Not on file Plan of Treatment Not on file Procedures Procedure Name Priority Date/Time Associated Diagnosis Comments HEPATITIS C AB W REFLEX TO HCV RNA BY PCR Routine 08/13/2023 13:23 EDT from Last 3 Months or Most Recently Relevant to Health Maintenance Results * HEPATITIS C AB W REFLEX TO HCV RNA BY PCR (08/13/2023 13:23 EDT) Hep C Antibody Negative Negative 08/17/2023 11:57 EDT [facility] Blood VENOUS BLOOD / Unknown 08/13/2023 13:23 EDT 08/14/2023 17:54 EDT Provider Outr Resulting Lab CHEMISTRY & BLOOD GAS ORDERABLES [facility] [address] [place] [address] from Last 3 Months or Most Recently Relevant to Health Maintenance Care Teams Product Grader Relationship Specialty Start Date End Date Unknown, Provider, PCP - General 04/30/12
== END 2024-05-16 16:47 | disposition home or self-care (01) ==
LOC: LBN 16:46
PROVIDERS: Visit Provider Nurse Practitioner Family
DX: J02.9 Acute pharyngitis, unspecified (principal)
CPT/HCPCS: 87077; 87070

== ENCOUNTER 2024-05-26 15:38 | Outpatient (CLI) | payer MEDICAID, SELFPAY ==
[2024-05-26 15:19] LABS: HCT 35.1 % (36.0-46.0); HGB 12.3 g/dL (11.2-15.7); MCH 31.5 pg (27.0-33.0); MCV 90 fL (80-95); MPV 9.1 fL (8.0-11.0); Platelet Count 462 10^3/uL (130-400); RDW 13.2 % (11.7-14.6); RDW-SD 43.2 fL; WBC 16.14 10^3/uL (4.4-10.8)
[2024-05-26 15:34] LABS: Hemoglobin A1C 6.9 % (<5.7)
--- OUTSIDE RECORDS SUMMARY | 2024-05-26 15:40 | XMS_ITS | Encounter Summary ---
Author Organization [facility] Address [address] [place] [address] Care Team Providers Care Digital Circuit Designer Name Role Phone Unknown, Provider Primary Care Provider [phone] Encounter Details Date Type Department Care Team (Late st Contact Info) Description 08/13/2023 Lab Requisition [facility] Pathology & Laboratory Medicine - [facility] [address] [place] [address] Outr Resulting Lab, Provider Social History Tobacco [...] Syphilis Serology Negative Negative 08/17/2023 10:38 EDT [facility] Blood VENOUS BLOOD / Unknown 08/13/2023 13:23 EDT 08/14/2023 17:54 EDT Provider Outr Resulting Lab IMMUNOLOGY A ND SEROLOGY ORDERABLES [facility] [address] [place] [address] * HEPATITIS C AB W REFLEX TO HCV RNA BY PCR (08/13/2023 13:23 EDT) Hep C Antibody Negative Negative 08/17/2023 11:57 EDT [facility] Blood VENOUS BLOOD / Unknown 08/13/2023 13:23 EDT 08/14/2023 17:54 EDT Provider Outr Resulting Lab CHEMISTRY & BLOOD GAS ORDERABLES [facility] [address] [place] [address] documented in this encounter Visit Diagnoses Not on filedocumented in this encounter Care Teams Digital Circuit Designer Relationship Specialty Start Date End Date Unknown, Provider, PCP - General 04/30/12 documented as of this encounter
--- OUTSIDE RECORDS SUMMARY | 2024-05-26 15:40 | XMS_ITS | Encounter Summary ---
Author Organization [facility] Address [address] [place] [address] Care Team Providers Care Caustic Purification Operator Name Role Phone Unknown, Provider Primary Care Provider [phone] Encounter Details Date Type Department Care Team (Late st Contact Info) Description 09/16/2023 Lab Requisition [facility] Pathology & Laboratory Medicine - [facility] [address] [place] [address] Outr Resulting Lab, Provider Social History Tobacco [...] gonorrhoeae Result Negative Negative 09/18/2023 12:36 EST [facility] Chlamydia trachomatis Result Negative Negative 09/18/2023 12:36 EST [facility] Pap Test CERVIX UTERI STRUCTURE / Unknown 09/16/2023 12:00 EST 09/18/2023 8:40 EST Provider Outr Resulting Lab MICROBIOLOGY - GENERAL ORDERABLES [facility] [address] [place] [address] documented in this encounter Visit Diagnoses Not on filedocumented in this encounter Care Teams Caustic Purification Operator Relationship Specialty Start Date End Date Unknown, Provider, PCP - General 04/30/12 documented as of this encounter
--- OUTSIDE RECORDS SUMMARY | 2024-05-26 15:40 | XMS_ITS | Encounter Summary ---
Author Organization [facility] Address [address] [place] [address] Care Team Providers Care Golf Club Head Inspector Name Role Phone Unknown, Provider Primary Care Provider [phone] Encounter Details Date Type Department Care Team (Late st Contact Info) Description 08/13/[address] [facility] Pathology & Laboratory Medicine - [facility] [address] [place] [address] Outr Resulting Lab, Provider Social History Tobacco [...] 4th Generation Negative Negative 08/15/2023 10:05 EDT [facility] Comment:If acute HIV-1 infec tion is suspected in a high risk patient, submit plasma specimen for HIV-1 RNA quantitation test. Blood VENOUS BLOOD / Unknown 08/13/2023 13:23 EDT 08/14/2023 17:54 EDT Narrative [facility] - 08/15/2023 10:05 EDT Fourth Generation assay performed on the Siemens Centaur XPT. Provider Outr Resulting Lab IMMUNOLOGY A ND SEROLOGY ORDERABLES [facility] [address] [place] [address] documented in this encounter Visit Diagnoses Not on filedocumented in this encounter Care Teams Golf Club Head Inspector Relationship Specialty Start Date End Date Unknown, Provider, PCP - General 04/30/12 documented as of this encounter
--- OUTSIDE RECORDS SUMMARY | 2024-05-26 15:40 | XMS_ITS | Continuity of Care Document ---
Author Organization [place] [facility], [facility] Address [address] [place] [address] [address] [place] [address] Assessment No assessment recorded. Plan of Treatment Reminders Order Date Submit Date Provider Last Modified By Organization Details Last Modified Time Details Appointments Follow Up 30 2023 01:30P Jerry HUSTON Not available Not available Not available Lab influenza virus A + B + SARS-CoV- 2 (COVID19) Ag panel, rapid IA, upper respirato ry specimen 2023 024 [email or web address] [facility], [address] [place] [address], [facility], [place], [address], 05/16/2024 11:26:14 rapid strep group A, throat 2023 024 [email or web address] [facility], [address] [place] [address], [facility], [place], [address], 05/16/2024 11:26:16 culture, throat 2023 024 [facility] (Registration ), [address] [place] [address] [place], [address], 05/17/2024 08:31:59 Referral None recorded. Procedures None recorded. Surgeries None recorded. Imaging None recorded. Medication Orders clindamyc in HCl 150 mg capsule 2023 024 [email or web address] [facility], [address] [place], [address], 05/16/2024 11:26:17 clindamyc in HCl 150 mg capsule 2023 024 [email or web address] [facility], [address] [place] [address], [address], 05/16/2024 11:46:06 dexametha sone 4 mg tablet 2023 024 [email or web address] [facility], [address] [place], [address], 05/20/2024 12:46:23 Patient TargetsNo targets recorded. Patient Instructions Encounter Date Encounter Id Patient Instructions Last Modified By Organization Details Last Modified Time 05/16/2024 [id number] Today, your rapi d COVID, flu, and strep tests are negative. We are sending a confirmatory throat culture as well and will call in 48 hours with those results. I am concerned for a bacterial throat infection due to the way your throat looks, and we will start an antibiotic (clindamycin) to take 3 times per day, and you received an oral steroid to decrease swelling. I would hope you begin to see improvement in the next 48 hours, but do seek care through the emergency department if you cannot swallow water your saliva, you develop a hot potato voice. [email or web address] Not available 05/16/2024 11:28:03 Reason for Referral None Reported. Results Created Date Observation Date Name Description Value Unit Range Abnormal Flag LastModifiedBy Organization Detail LastModifiedTime 05/16/2005/16/2024 influ lele virus A + B + SARS- CoV-2 (COVI D19) Ag panel , rapid IA, upper respi rator y speci men Influenza A negati ve Not Available [address], [place], [address], 05/16/2024 10:49:38 05/16/20 24 05/16/2024 influ lele virus A + B + SARS- CoV-2 (COVI D19) Ag panel , rapid IA, upper respi rator y speci men Influenza B negati ve Not Available [address], [place], [address], 05/16/2024 10:49:38 05/16/20 24 05/16/2024 influ lele virus A + B + SARS- CoV-2 (COVI D19) Ag panel , rapid IA, upper respi rator y speci men SARS-COV-2 negati ve Not Available [address], [place], [address], 05/16/2024 10:49:38 05/16/20 24 05/16/2024 rapid strep group A, throa t Strep negati ve Not Available [address], [place], [address], 05/16/2024 10:49:48 Result Notes None recorded. Problems Name Status Onset Date Resolution Date Notes Provider Name and Address Organization Details Recorded Time Acute upper respiratory infection Completed 202008/06/2021 08/05/2021 - Comments only - Sunita QUIÑONEZ - Covid swab performed. Quarantining discussed until results are back. Work note given. Likely viral. Flonase given for nasal congestion 2 sprays twice daily while sick. Instructed patient that if this is allergy related and the Flonase is helpful to decrease down to 1 spray twice daily or 2 sprays once daily. Plenty of rest and fluids. Tylenol or ibuprofen as needed. Problem Code: J06.9; Problem Code Type: ICD-10; Not Available [facility] 3 04:53:46 Pain of left shoulder joint Active 2022 Problem Code: M25.512; Problem Code Type: ICD-10; Not Available [facility] 3 04:53:46 Counseling Completed 202206/07/2023 05/09/2023 - Comments only - Brenda Huston HAM CURER - Now established on my panel. She will follow-up in 3 months recheck A1c at that time. Problem Code: Z71.89; Problem Code Type: ICD-10; Not Available [facility] 3 04:53:47 Tinea pedis Active 202205/09/2023 - Comments only - Brenda Huston HAM CURER - Continue with topical antifungal spray and soaks and debridement with dry skin peeling as you have been. If any of the symptoms of cellulitis or athlete's foot return please follow-up sooner than 3 months. Problem Code: B35.3; Problem Code Type: ICD-10; Not Available [facility] 3 04:53:47 Family history of endocrine disorders Active 2022 Not Available [facility] 3 04:53:47 Hyperglycemia due to type 2 diabetes mellitus Active 202205/09/2023 - Comments only - Brenda Huston HAM CURER - Decrease metformin to 500 mg once a day. Repeat A1c in 3 months. Call if concerns sooner. Problem Code: E11.65; Problem Code Type: ICD-10; Not Available [facility] 3 04:53:47 Cellulitis Active 202205/09/2023 - Comments only - Brenda Huston HAM CURER - Complete doxycycline. No sign of infection today. 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 Will inquire with electrical engineering drafting officer about most affordable source at this time. Problem Code: Z91.030; Problem Code Type: ICD-10; Not Available [facility] 3 04:53:49 Nicotine dependence Active 201907/04/2020 - Comments only - Yvette Ferreira APRN - Not interested in quitting at this time. Agrees to get PPSV23. Problem Code: F17.200; Problem Code Type: ICD-10; Not Available [facility] 3 04:53:49 Spontaneous ecchymosis Completed 202205/08/2023 Problem Code: R23.3; Problem Code Type: ICD-10; Not Available [facility] 3 04:53:49 Major depression, single episode Completed 201905/08/2023 Problem Code: F32.9; Problem Code Type: ICD-10; Not Available [facility] 3 04:53:49 Abdominal pain Completed 202006/13/2021 Problem Code: R10.9; Problem Code Type: ICD-10; Not Available [facility] 3 04:53:49 Diarrhea Completed 202006/13/2021 Problem Code: R19.7; Problem Code Type: ICD-10; Not Available [facility] 3 04:53:50 Acute upper respiratory infection Completed 202105/08/2023 Problem Code: J06.9; Problem Code Type: ICD-10; Not Available [facility] 3 04:53:50 Exposure to communicable disease Completed 202105/08/2023 Problem Code: Z20.828; Problem Code Type: ICD-10; Not Available [facility] 3 04:53:50 Family history of endocrine disorders Completed 201905/09/2023 Not Available [facility] 3 04:53:50 History and physical examination, pre-employmen t Completed 202205/08/2023 Problem Code: Z02.1; Problem Code Type: ICD-10; Not Available [facility] 3 04:53:51 Adult health examination Completed 201905/08/2023 Problem Code: Z00.00; Problem Code Type: ICD-10; Not Available [facility] 3 04:53:51 Left lower quadrant pain Completed 202005/08/2023 Problem Code: R10.32; Problem Code Type: ICD-10; Not Available [facility] 3 04:53:51 Otitis externa of left ear Completed 202105/08/2023 Problem Code: H60.92; Problem Code Type: ICD-10; Not Available [facility] 3 04:53:51 Counseling Completed 202005/08/2023 Problem Code: Z71.89; Problem Code Type: ICD-10; Not Available [facility] 3 04:53:51 Venereal disease screening Active 202208/27/2023 - Comments only - Brenda Huston HAM CURER - Lab screenings and urine screen entered for potential exposure to STD with past partner. Problem Code: Z11.3; Problem Code Type: ICD-10; Not Available [facility] 4 05:34:27 Problem Notes None recorded. Procedures Surgical History Date Name Laterality Status Provider Name and Address Organization Details Recorded Time 12/25/2016 Date of Last Pap Smear [facility]/16/2023 09:54:04 Imaging Results None recorded. Procedure Notes None recorded. Medical Equipment None Reported. Allergies Allergen ID Allergen Name Allergen Category Reaction Reaction Severity Criticality Documentation Date Start Date Code Code System Note Provider Name and Address Organization Details Recorded Time 77048 wasp venoms environme nt anaphylax is Not available Not available 09/04/20232019 24471 RxNorm BRADLEY WILLSON, [facility] 09:49:32 Medications Name Sig Start Date Stop Date Status Note LastModified by Organization Details LastModified Time Mirena 21 mcg/24 hr (up to 8 years) 52 mg intrauterin e device 05/20 completed Not Available Not Available Not Available methocarbam ol 500 mg tablet Take 1 tab by mouth every 6 hours as needed 12/18 completed Not Available Not Available Not Available metformin 500 mg tablet TAKE ONE TABLET BY MOUTH EVERY DAY 09/16 completed Not Available Not Available Not Available Augmentin 875 mg-125 mg tablet Take 1 tablet by mouth twice a day 05/26 completed Not Available Not Available Not Available doxycycline hyclate 100 mg capsule TAKE ONE CAPSULE BY MOUTH TWICE A DAY 09/16 completed Not Available Not Available Not Available clindamycin HCl 150 mg capsule Take 3 capsules by oral route. 2023 active Not Available Not Available Not Avai lable Depo-Oracle Drm Consultant a 150 mg/mL intramuscul ar suspension Inject 1 ml intramusc ularly every three months 03/02 completed Not Available Not Available Not Available dexamethaso ne 4 mg tablet Take 4 tablets by oral route. 05/20 completed Not Available Not Available Not Available clotrimazol e-betametha sone 1 %-0.05 % topical cream APPLY TOPICALLY TWO TIMES A DAY 09/16 completed Not Available Not Available Not Available naproxen 500 mg tablet Take 1 tablet by mouth two times a day as needed 12/18 completed Not Available Not Available Not Available neomycin-po lymyxin-hyd rocort 3.5 mg-10,000 unit/mL-1 % ear drops,susp Instill 4 drop into affected ear four times a day 01/17 completed Not Available Not Available Not Available EpiPen 2-John 0.3 mg/0.3 mL injection, auto-inject or Use 1 pen injector intramusc ularly as directed 2022 active Not Available Not Available Not Avai lable Classic 28 mg iron-800 mcg tablet Take 1 tablet every day by oral route for 90 days. 2023 active Not Available Not Available Not Avai lable Flonase Allergy Relief 50 mcg/actuati on nasal spray,suspe nsion [place] 2 spray into both nostrils twice a day 12/08 completed Not Available Not Available Not Available Paxlovid 300 mg (150 mg x 2)-100 mg tablets in a dose pack Take 3 tablet by mouth twice a day Pt to stop flonase while taking paxlovid 12/08 completed Not Available Not Available Not Available Vitals Date Recorded Body height Body mass index (BMI) Body weight Respiratory rate Oxygen saturation Oxygen saturation in Arterial blood by Pulse oximetry Heart rate Body temperature Systolic blood pressure Diastolic blood pressure Provider Name and Address Organization Details Last Updated DateTime 4 170.81 cm 30.3 kg/m2 19263.5 1 g 17 /min 99 % 99 % 121 /min 98.4 [degF] 146 mm[Hg] 86 mm[Hg] FRANKLIN PULLIAM MA [place] [facility]. 4 10:31:25 Social History Question Answer Notes LastModified by Organization Details LastModified Time Tobacco Smoking Status Current Every Day Smoker ANCA FARLEY RN null, [place] [facility] 09/16/2023 11:28:57 What Is Your Level Of Alcohol Consumption? Moderate Information not available 09/16/2023 How Many Times Per Week Do You Consume Alcohol? Less Than 1 Time Per Week Information not available 09/16/2023 Do You Or Have You Ever Used E-cigarettes Or Vape? Current User Of Electronic Cigarettes Occasionally Information not available 09/16/2023 How Many Times In The Past Year Have You Used An Illegal Drug Or Used A Prescription Medication For Nonmedical Reasons? 0 Information not available 09/16/2023 Would You Say That, In General, Your Health Is Fair Information not available 09/16/2023 Women Aged 18-50 - Would You Like To Become In The Next Year? (Female Patients Only) Unsure Information not available 09/16/2023 How Often Does Anyone, Including Family, Physically Hurt You? Never Information not available 09/16/2023 How Often Does Anyone, Including Family, Insult Or Talk Down To You? Never Information not available 09/16/2023 How Often Does Anyone, Including Family, Threaten You With Harm? Never Information not available 09/16/2023 How Often Does Anyone, Including Family, Scream Or Curse At You? Never Information not available 09/16/2023 Within The Past 12 Months, You Worried That Your Food Would Run Out Before You Got Money To Buy More. Never True Information not available 09/16/2023 Within The Past 12 Months, The Food You Bought Just Didn't Last And You Didn't Have Money To Get More. Never True Information not available 09/16/2023 How Hard Is It For You To Pay For The Very Basics Like Food, Housing, Medical Care, And Heating? Would You Say It Is: Not Hard At All Information not available 09/16/2023 What Is Your Housing Situation Today? I Do Not Have Housing Staying With Mom With My 2 Boys Information not available 09/16/2023 What Was The Date Of Your Most Recent Tobacco Screening? 05/20/2024 [email or web address] Information not available 05/20/2024 At What Age Did You Start Smoking Tobacco? 15 Information not available 09/16/2023 Do You Or Have You Ever Used Smokeless Tobacco? Never Used Smokeless Tobacco Information not available 09/16/2023 How Much Tobacco Do You Smoke? 1 PPD Information not available 09/16/2023 Do You Use Any Illicit Or Recreational Drugs? Yes Information not available 09/16/2023 Has Tobacco Cessation Counseling Been Provided? Yes [email or web address] Information not available 05/16/2024 On What Date Was Tobacco Cessation Counseling Provided? 05/20/2024 [email or web address] Information not available 05/20/2024 Do You Or Have You Ever Used Any Other Forms Of Tobacco Or Nicotine? Yes Information not available 09/16/2023 How Many Years Have You Used E-cigarettes Or Vape? 2 Information not available 09/16/2023 Sex: Female Functional Status None recorded. Mental Status None recorded. Family History Relationship Description Onset Age of this Age Resolved Age Notes Unspecified Relation Type 1 diabetes mellitus Maternal Grandmother Heart disease Father Epilepsy Notes:uncle with cancer, unk nown cause (paternal) Medical History No medical history recorded. Gynecological History Statement/Question Response Abnormal Pap N Date of Last Pap Smear 12/25/2016 Age at Menarche 12 LMP Sexually Active? Y Obstetrics History GPAL:G 0 P 0 0 0 0 Immunizations Vaccine Type Date Status Provider Name and Address Organization Details Recorded Time Influenza, split virus, quadrivalent, PF 09/16/2023 completed ANCA FARLEY RN [facility], [place] [facility] 09/16/2023 12:57:12 Tdap 12/26/2022 completed Not Available [facility] 05:34:44 COVID-19, mRNA, LNP-S, PF, 100 mcg/0.5mL dose or 50 mcg/0.25mL dose 06/13/2021 completed Not Available [facility] 09/04/2023 05:34:44 COVID-19, mRNA, LNP-S, PF, 100 mcg/0.5mL dose or 50 mcg/0.25mL dose 07/11/2021 completed Not Available [facility] 09/04/2023 05:34:45 Pneumococcal conjugate PCV20, polysaccharide [id number] conjugate, adjuvant, PF 05/08/2023 completed Not Available [facility] 09/04/2023 05:34:45 Past Encounters Encounter ID Performer Location Encounter Start Date Encounter Closed Date Diagnosis/Indication Diagnosis SNOMED-CT Code [id number] MORENITA COOL [address],[facility] [address] [place] [address] 05/16/2024 09:51:31 05/16/2024 11:32:46 Acute pharyngitis [id number] Health Concerns Section Related Observation LastModified by Organization Detai ls LastModified Time None Recorded Concern Status LastModified by Organization Details LastModified Time None Recorded Payers Encounter Date Sequence Insurance Name Policy Number Policy Carbajal Covered Member ID Carbajal Member ID Guarantor Name 05/16/2024 1 [facility] (MEDICAID) Irvin Cade [id number] Irvin Cade Notes Date Note Type Note Provider Name and Address Organization Details Recorded Time 05/16/2024 text/html HPI Notes: Patie nt with onset of symptoms yesterday, feeling feverish, with sweats, fatigue, and sore throat with painful swallowing and tender lymph nodes in neck. Denies any nausea or abdominal pain. Reports mild productive cough. Denies rhinitis or nasal congestion. Painful swallowing, but is able to tolerate liquids. Has taken Excedrin and Theraflu with mild improvement in symptoms. Has been gargling with salt water. MORENITA COOL [address], [place], [address], [facility], [facility]. 05/16/2024 11:46:02 OBGyn Episode No OBEpisode recorded.
--- OUTSIDE RECORDS SUMMARY | 2024-05-26 15:40 | XMS_ITS | Data Portability ---
Author Organization [place] - [facility] Address [address] [place] [address] Assessment No assessment recorded. Plan of Treatment Reminders Order Date Submit Date Provider Last Modified By Organization Details Last Modified Time Details Appointments Follow Up 30 2023 01:30P M BRENDA HUSTON Not available Not available Not available Lab pap, LB + reflex HR HPV 2022 023 [email or web address] [facility] (Registration ), [address] [place] [address] [place], [address], 10/12/2023 14:29:16 influenza virus A + B + SARS-CoV- 2 (COVID19) Ag panel, rapid IA, upper respirato ry specimen 2023 024 [email or web address] [facility], [address] [place] [address], [facility], [place], [address], 05/16/2024 11:26:14 rapid strep group A, throat 2023 024 [email or web address] [facility], [address] [place] [address], [address], [place], [address], 05/16/2024 11:26:16 culture, throat 2023 024 [email or web address] [facility] (Registration ), [address] [place] [address] [place], [address], 05/17/2024 08:31:59 test, urine 2023 024 [email or web address] [facility], [address], [address], [place], [address], 05/20/2024 13:09:46 Referral None recorded. Procedures None recorded. Surgeries None recorded. Imaging US, transvagi nal - IUD strings not seen on pap testing DEPUTY SHERIFF exam today. U/S for placement verificat ion 2022 023 [facility], [address], [place], [address], 10/29/2023 07:43:28 Medication Orders clindamyc in HCl 150 mg capsule 2023 024 ABHIJEET [facility], [address] [place] [address], [address], 05/16/2024 11:26:17 clindamyc in HCl 150 mg capsule 2023 024 [email or web address] [facility], [address] [place], [address], 05/16/2024 11:46:06 dexametha sone 4 mg tablet 2023 024 [email or web address] [facility], [address] [place] [address], [address], 05/20/2024 12:46:23 Classic 28 mg iron-800 mcg tablet 2023 024 ABHIJEET [facility], [address] [place], [address], 05/20/2024 13:03:33 Patient TargetsNo targets recorded. Patient Instructions Encounter Date Encounter Id Patient Instructions Last Modified By Organization Details Last Modified Time 09/16/2023 [id number] Nice to see you today! Follow up in 6 months for A1C check, check in on prediabetes/type II Diabetes work on smoking cessation Pap completed today. We will send you a letter if normal and call you if abnormal Radiology will call you to schedule U/S for IUD placement verification Not available 09/16/2023 12:07:11 05/16/2024 [id number] Today, your rapi d COVID, flu, and [...] saliva, you develop a hot potato voice. Not available 05/16/2024 11:28:03 05/20/2024 [id number] 1. Your pregnanc y test is positive. 2. Please call [facility] and let them know you are and you will need someone to follow you for your . 3. I have sent prescription for vitamins to your pharmacy of choice. Please use as prescribed. 4. The antibiotic you are started on for strep is okay to take in . [email or web address] Not available 05/20/2024 13:04:14 Reason for Referral None Reported. Results Created Date Observation Date Name Description Value Unit Range Abnormal Flag LastModifiedBy Organization Detail LastModifiedTime 05/16/20 24 05/17/2024 THROA T AEROB IC CULTU RE throat aerobic culture Not Available [facility] (Registration ) [address] [place] [address] [place], [address], 05/17/2024 08:20:30 05/16/20 24 05/18/2024 THROA T AEROB IC CULTU RE throat aerobic culture Not Available [facility] (Registration ) [address] [place] [address] [place], [address], 05/18/2024 10:44:59 05/16/20 24 05/16/2024 influ lele virus A + B + SARS- CoV-2 (COVI D19) Ag panel , rapid IA, upper respi rator y speci men Influenza A negati ve Not Available [address], [place], [address], 05/16/2024 10:49:38 05/16/20 24 05/16/2024 influ lele virus A + B + SARS- CoV-2 (COVI D19) Ag panel , rapid IA, upper respi rator y speci men Influenza B negati ve Not Available [address], [place], [address], 05/16/2024 10:49:38 05/16/20 24 05/16/2024 influ lele virus A + B + SARS- CoV-2 (COVI D19) Ag panel , rapid IA, upper respi rator y speci men SARS-COV-2 negati ve Not Available [address], [place], [address], 05/16/2024 10:49:38 05/16/20 24 05/16/2024 rapid strep group A, throa t Strep negati ve Not Available [address], [place], [address], 05/16/2024 10:49:48 05/20/20 24 05/20/2024 pregn mau test, urine HCG positi ve Not Available [address], [place], [address], 05/20/2024 13:06:06 09/24/20 23 09/24/2023 ultra sound imagi ng lucio yoder Name: Irvin Cade Unit #: [id number] Loc: DI Orderi ng Provid er: Brenda Huston t #: [id number] Status : REG CLI Primar y Care Provid er: [place]ut [place] Date of Exam: 09/24 Sex: F Admiss ion Date: : 1984 Age: 38 Exam(s ) US PELVIS TRANSV AGINAL EXAM: US PELVIS TRANSV AGINAL CLINIC AL HISTOR Y: Z30.[address] for routin e checki ng of IUD. TECHNI QUE: Transa bdomin al and transv aginal pelvic ultras ound was perfor med using standa rd protoc ol. COMPAR JAIRO: US US PELVIS TRANSV AGINAL from 2019 FINDIN GS: UTERUS : Positi on: Anteve rted. Size: 6.7 long by 4.2 AP by 4.8 transv erse cm Endome trium: 0.4 cm. Normal for patien t's menstr ual status . There is an IUD which is in good positi on. Myomet rium: A 1.1 x 0.7 x 0.9 cm fibroi d is seen in the marketing rotation associate ior body. Cervix : Unrema rkable . OVARIE S: Right: 3.0 x 1.2 x 2.0 cm Cyst or mass: No suspic ious cystic or solid masses . Left: 2.4 x 1.2 x 2.9 cm Cyst or mass: No suspic ious cystic or solid masses . DOPPLE R: Color: Symmet yoandy and unifor m flow to both ovarie s. CUL-DE -SAC: Free fluid: There is a trace amount of free fluid in the pelvis . Other: None. IMPRES HASMUKH: 1. Normal -appea ring uterus with endome trial stripe within normal limits . 2. The IUD is in good positi on. 3. Unrema rkable bilate ral ovarie s. DATA REPOSI TORY: Ordere d By: Brenda Huston CC: ------ ------ ------ ------ ------ ------ ------ ------ ------ ------ ------ ------ - Dictat ed By: Jarocho Carrasco M.D. 1653 Transc ribed By: Jarocho Carrasco 1653 This is privil eged, confid ential inform ation intend ed only for the provid er named. Any use or distri bution by any person other than this provid er is strict ly prohib ited. If you receiv e this report in error, please notify us immedangelic aranda at [phone] and return the origin al report to us at the addres s above. Thank- you. [place] [id number], [place], [address] 10/12/2023 10:09:38 Result Notes None recorded. Problems Name Status [...] J06.9; Problem Code Type: ICD-10; Not Available [facility] 3 04:53:46 Pain of left shoulder joint Active 2022 Problem Code: M25.512; Problem Code Type: ICD-10; Not Available [facility] 3 04:53:46 Counseling Completed 202206/07/2023 05/09/2023 - Comments only - Brenda Huston TOOL ADJUSTER - Now established on my panel. She will follow-up in 3 months recheck A1c at that time. Problem Code: Z71.89; Problem Code Type: ICD-10; Not Available [facility] 3 04:53:47 Tinea pedis Active 202205/09/2023 - Comments only - Brenda Huston TOOL ADJUSTER - Continue with topical antifungal spray and soaks and debridement with dry skin peeling as you have been. If any of the symptoms of cellulitis or athlete's foot return please follow-up sooner than 3 months. Problem Code: B35.3; Problem Code Type: ICD-10; Not Available [facility] 3 04:53:47 Family history of endocrine disorders Active 2022 Not Available [facility] 3 04:53:47 Hyperglycemia due to type 2 diabetes mellitus Active 202205/09/2023 - Comments only - Brenda Huston TOOL ADJUSTER - Decrease metformin to 500 mg once a day. Repeat A1c in 3 months. Call if concerns sooner. Problem Code: E11.65; Problem Code Type: ICD-10; Not Available [facility] 3 04:53:47 Cellulitis Active 202205/09/2023 - Comments only - Brenda Huston TOOL ADJUSTER - Complete doxycycline. No sign of infection today. 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 Will inquire with contract officer about most affordable source at this time. Problem Code: Z91.030; Problem Code Type: ICD-10; Not Available [facility] 3 04:53:49 Nicotine dependence Active 201907/04/2020 - Comments only - Yvette Ferreira APRN - Not interested in quitting at this time. Agrees to get PPSV23. Problem Code: F17.200; Problem Code Type: ICD-10; Not Available [facility] 3 04:53:49 Spontaneous ecchymosis Completed 202205/08/2023 Problem Code: R23.3; Problem Code Type: ICD-10; Not Available [facility] 3 04:53:49 Major depression, single episode Completed 201905/08/2023 Problem Code: F32.9; Problem Code Type: ICD-10; Not Available [facility] 3 04:53:49 Abdominal pain Completed 202006/13/2021 Problem Code: R10.9; Problem Code Type: ICD-10; Not Available [facility] 3 04:53:49 Diarrhea Completed 202006/13/2021 Problem Code: R19.7; Problem Code Type: ICD-10; Not Available [facility] 3 04:53:50 Acute upper respiratory infection Completed 202105/08/2023 Problem Code: J06.9; Problem Code Type: ICD-10; Not Available [facility] 3 04:53:50 Exposure to communicable disease Completed 202105/08/2023 Problem Code: Z20.828; Problem Code Type: ICD-10; Not Available [facility] 3 04:53:50 Family history of endocrine disorders Completed 201905/09/2023 Not Available [facility] 3 04:53:50 History and physical examination, pre-employmen t Completed 202205/08/2023 Problem Code: Z02.1; Problem Code Type: ICD-10; Not Available [facility] 3 04:53:51 Adult health examination Completed 201905/08/2023 Problem Code: Z00.00; Problem Code Type: ICD-10; Not Available [facility] 3 04:53:51 Left lower quadrant pain Completed 202005/08/2023 Problem Code: R10.32; Problem Code Type: ICD-10; Not Available [facility] 3 04:53:51 Otitis externa of left ear Completed 202105/08/2023 Problem Code: H60.92; Problem Code Type: ICD-10; Not Available [facility] 3 04:53:51 Counseling Completed 202005/08/2023 Problem Code: Z71.89; Problem Code Type: ICD-10; Not Available [facility] 3 04:53:51 Venereal disease screening Active 202208/27/2023 - Comments only - Brenda Huston TOOL ADJUSTER - Lab screenings and urine screen entered for potential exposure to STD with past partner. Problem Code: Z11.3; Problem Code Type: ICD-10; Not Available [facility] 4 05:34:27 Problem Notes None recorded. Procedures Surgical History Date Name Laterality Status Provider Name and Address Organization Details Recorded Time 12/25/2016 Date of Last Pap Smear completed BRADLEY WILLSON, [facility] 09/16/2023 09:54:04 Imaging Results Imaging Date Name Status LastModified by Organiz ation Details LastModified Time 09/24/2023 ultrasound imaging report completed [facility] [address] [place], [address] 10/12/2023 10:09:38 Procedure Notes None recorded. Medical Equipment None Reported. Allergies Allergen ID Allergen Name Allergen Category Reaction Reaction Severity Criticality Documentation Date Start Date Code Code System Note Provider Name and Address Organization Details Recorded Time 71309 wasp venoms environme nt anaphylax is Not available Not available 09/04/20232019 51696 RxNorm BRADLEY WILLSON, [facility] 09:49:32 Medications Name Sig Start Date Stop [...] Not Available Not Available Not Avai lable Depo-[employer] a 150 mg/mL intramuscul ar suspension Inject [...] Relief 50 mcg/actuati on nasal spray,suspe nsion Mcintyre 2 spray into both nostrils twice a day 12/08 completed Not Available Not Available Not Available Paxlovid 300 mg (150 mg x 2)-100 mg tablets in a dose pack Take 3 tablet by mouth twice a day Pt to stop flonase while taking paxlovid 12/08 completed Not Available Not Available Not Available Vitals Date Recorded Body height Body mass index (BMI) Body weight Body temperature Heart rate Respiratory rate Systolic blood pressure Diastolic blood pressure Provider Name and Address Organization Details Last Updated DateTime 3 170.82 cm 27.8 kg/m2 51145.6 g 98.1 [degF] 88 /min 16 /min 108 mm[Hg] 80 mm[Hg] ANCA FARLEY RN [place] [facility] 3 11:34:07 Date Recorded Body height Body mass index (BMI) Body weight Respiratory rate Oxygen saturation Oxygen saturation in Arterial blood by Pulse oximetry Heart rate Body temperature Systolic blood pressure Diastolic blood pressure Provider Name and Address Organization Details Last Updated DateTime 4 170.81 cm 30.3 kg/m2 20688.5 1 g 17 /min 99 % 99 % 121 /min 98.4 [degF] 146 mm[Hg] 86 mm[Hg] FRANKLIN PULLIAM MA [facility] 4 10:31:25 Date Recorded Body height Body mass index (BMI) Body weight Body temperature Oxygen saturation Oxygen saturation in Arterial blood by Pulse oximetry Heart rate Respiratory rate Systolic blood pressure Diastolic blood pressure Provider Name and Address Organization Details Last Updated DateTime 4 170.81 cm 29.7 kg/m2 69074.1 4 g 97.3 [degF] 96 % 96 % 89 /min 17 /min 132 mm[Hg] 84 mm[Hg] Lianne Santiago MA [facility] 4 12:45:43 Social History Question Answer Notes LastModified by Organization Details LastModified Time Tobacco Smoking Status Current Every Day Smoker ANCA FARLEY RN [facility], [facility] 09/16/2023 11:28:57 What Is Your Level Of [...] Of Your Most Recent Tobacco Screening? 05/20/2024 [email or web address] Information not available 05/20/2024 At What Age [...] Has Tobacco Cessation Counseling Been Provided? Yes [email or web address] Information not available 05/16/2024 On What Date Was Tobacco Cessation Counseling Provided? 05/20/2024 Information not available 05/20/2024 Do You Or [...] quadrivalent, PF 09/16/2023 completed ANCA FARLEY RN [facility] 09/16/2023 12:57:12 Tdap 12/26/2022 completed Not Available [facility] 05:34:44 COVID-19, mRNA, LNP-S, PF, 100 mcg/0.5mL dose or 50 mcg/0.25mL dose 06/13/2021 completed Not Available [facility] 09/04/2023 05:34:44 COVID-19, mRNA, LNP-S, PF, 100 mcg/0.5mL dose or 50 mcg/0.25mL dose 07/11/2021 completed Not Available [facility] 09/04/2023 05:34:45 Pneumococcal conjugate PCV20, polysaccharide [id number] conjugate, adjuvant, PF 05/08/2023 completed Not Available [facility] 09/04/2023 05:34:45 Past Encounters Encounter ID Performer Location Encounter Start Date Encounter Closed Date Diagnosis/Indication Diagnosis SNOMED-CT Code [id number] ANCA FARLEY RN [address] [place] [address] 09/16/2023 11:12:57 09/16/2023 12:09:01 Adult health examination 604282107 Gynecologi c examination 27130660 Nicotine dependence 5629 4008 Screening for malignant neoplasm of cervix 398618758 IUD check 791436127 Administra tion of influenza vaccine [id number] MORENITA COOL [address] [place] [address] 05/16/2024 09:51:31 05/16/2024 11:32:46 Acute pharyngitis [id number] JANNIE ROSENTHAL PA-C [address] [place] [address] 05/20/2024 11:07:21 05/20/2024 13:05:18 test positive [id number] Health Concerns Section Related Observation LastModified by Organization Detai ls LastModified Time None Recorded Concern Status LastModified by Organization Details LastModified Time None Recorded Advance Directives Directive None Recorded Payers Encounter Date Sequence Insurance Name Policy Number Policy Carbajal Covered Member ID Carbajal Member ID Guarantor Name 09/16/2023 1 [facility] [facility] (MEDICAID) Irvin Heller Alyssia [id number] Irvin Heller Alyssia 05/16/2024 1 [employer] [facility] (MEDICAID) Irvin Heller Alyssia [id number] Irvin Heller Alyssia 05/20/2024 1 [facility] [facility] (MEDICAID) Irvin Heller Alyssia [id number] Irvin Lesters Notes Date Note Type Note Provider Name and Address Organization Details Recorded Time 09/16/2023 text/html HPI Notes: Irvin a pleasant 38-year-old female here today for annual preventative healthcare exam with Pap screening test. She has no acute concerns today. She is a current everyday smoker a pack per day. Not ready to quit. Says she is stressed moving currently. Would like to quit soon. She will reach out if you would like help with this. Does have a Mirena IUD and says that she has had it for 3 years and has not had a period in 3 years. Not currently sexually active and not concerned about STD screening but would like having her gonorrhea and Chlamydia testing added to her Pap. Recently did do blood work for STD screening with new partner. All negative. Was managed for type 2 diabetes/prediabete s now currently only with diet. Last A1c 6.3% on 08/13/2023. Would like her influenza vaccine today. ANCA FARLEY RN [facility], [facility], [facility]. 09/16/2023 12:58:23 05/16/2024 text/html HPI Notes: Patie nt with [...] water. MORENITA COOL [address], [place], [address], [facility], [facility]. 05/16/2024 11:46:02 05/20/2024 text/html HPI Notes: Ct is a 38-year-old female who is here for confirmation of 2 home test that were positive. She states she is due for her period with LMP from April 06 to April 10. She has noticed her breast have been a little bit tender. She has been keeping a pretty consistent log of her. Since changing from the Mirena to an oral contraceptive sometime ago. Cannot remember how long ago is not currently having any vaginal bleeding or cramping. She did just start clindamycin for strep throat and wants to ensure this is safe in JANNIE ROSENTHAL PA-C [address], [place], [address], [place] [facility]. 05/20/2024 13:23:33 OBGyn Episode No OBEpisode recorded.
--- OUTSIDE RECORDS SUMMARY | 2024-05-26 15:40 | XMS_ITS | Continuity of Care Document ---
Author Organization [place] [facility] Address [address] [place] [address] [address] [place] [address] Assessment No assessment recorded. Plan of Treatment Reminders Order Date Submit Date Provider Last Modified By Organization Details Last Modified Time Details Appointments Follow Up 30 2023 01:30P M BRENDA HUSTON Not available Not available Not available Lab test, urine 2023 024 [email or web address] [facility], [address] [place] [address], [address], [place], [address], 05/20/2024 13:09:46 Referral None recorded. Procedures None recorded. Surgeries None recorded. Imaging None recorded. Medication Orders Classic 28 mg iron-800 mcg tablet 2023 024 ABHIJEET [facility], [address] [place], [address], 05/20/2024 13:03:33 Patient TargetsNo targets recorded. Patient Instructions Encounter Date Encounter Id Patient Instructions Last Modified By Organization Details Last Modified Time 05/20/2024 [id number] 1. Your pregnanc y test is positive. [...] Range Abnormal Flag LastModifiedBy Organization Detail LastModifiedTime 05/20/20 24 05/20/2024 pregn mau test, urine HCG positi ve Not Available [address], [place], [address], 05/20/2024 13:06:06 Result Notes None recorded. Problems Name Status [...] J06.9; Problem Code Type: ICD-10; Not Available [facility] 3 04:53:46 Pain of left shoulder joint Active 2022 Problem Code: M25.512; Problem Code Type: ICD-10; Not Available [facility] 3 04:53:46 Counseling Completed 202206/07/2023 05/09/2023 - Comments only - Brenda Huston INVESTIGATION DIVISION SERGEANT - Now established on my panel. She will follow-up in 3 months recheck A1c at that time. Problem Code: Z71.89; Problem Code Type: ICD-10; Not Available [facility] 3 04:53:47 Tinea pedis Active 202205/09/2023 - Comments only - Brenda Huston INVESTIGATION DIVISION SERGEANT - Continue with topical antifungal spray and soaks and debridement with dry skin peeling as you have been. If any of the symptoms of cellulitis or athlete's foot return please follow-up sooner than 3 months. Problem Code: B35.3; Problem Code Type: ICD-10; Not Available [facility] 3 04:53:47 Family history of endocrine disorders Active 2022 Not Available [facility] 3 04:53:47 Hyperglycemia due to type 2 diabetes mellitus Active 202205/09/2023 - Comments only - Brenda Huston INVESTIGATION DIVISION SERGEANT - Decrease metformin to 500 mg once a day. Repeat A1c in 3 months. Call if concerns sooner. Problem Code: E11.65; Problem Code Type: ICD-10; Not Available [facility] 3 04:53:47 Cellulitis Active 202205/09/2023 - Comments only - Brenda Huston INVESTIGATION DIVISION SERGEANT - Complete doxycycline. No sign of infection today. 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 Will inquire with staff internist office based only about most affordable source at this time. Problem Code: Z91.030; Problem Code Type: ICD-10; Not Available [facility] 3 04:53:49 Nicotine dependence Active 201907/04/2020 - Comments only - Yvette Ferreira APRN - Not interested in quitting at this time. Agrees to get PPSV23. Problem Code: F17.200; Problem Code Type: ICD-10; Not Available [facility] 3 04:53:49 Spontaneous ecchymosis Completed 202205/08/2023 Problem Code: R23.3; Problem Code Type: ICD-10; Not Available [facility] 3 04:53:49 Major depression, single episode Completed 201905/08/2023 Problem Code: F32.9; Problem Code Type: ICD-10; Not Available [facility] 3 04:53:49 Abdominal pain Completed 202006/13/2021 Problem Code: R10.9; Problem Code Type: ICD-10; Not Available [facility] 3 04:53:49 Diarrhea Completed 202006/13/2021 Problem Code: R19.7; Problem Code Type: ICD-10; Not Available [facility] 3 04:53:50 Acute upper respiratory infection Completed 202105/08/2023 Problem Code: J06.9; Problem Code Type: ICD-10; Not Available [facility] 3 04:53:50 Exposure to communicable disease Completed 202105/08/2023 Problem Code: Z20.828; Problem Code Type: ICD-10; Not Available [facility] 3 04:53:50 Family history of endocrine disorders Completed 201905/09/2023 Not Available [facility] 3 04:53:50 History and physical examination, pre-employmen t Completed 202205/08/2023 Problem Code: Z02.1; Problem Code Type: ICD-10; Not Available [facility] 3 04:53:51 Adult health examination Completed 201905/08/2023 Problem Code: Z00.00; Problem Code Type: ICD-10; Not Available [facility] 3 04:53:51 Left lower quadrant pain Completed 202005/08/2023 Problem Code: R10.32; Problem Code Type: ICD-10; Not Available [facility] 3 04:53:51 Otitis externa of left ear Completed 202105/08/2023 Problem Code: H60.92; Problem Code Type: ICD-10; Not Available [facility] 3 04:53:51 Counseling Completed 202005/08/2023 Problem Code: Z71.89; Problem Code Type: ICD-10; Not Available [facility] 3 04:53:51 Venereal disease screening Active 202208/27/2023 - Comments only - Brenda Huston INVESTIGATION DIVISION SERGEANT - Lab screenings and urine screen entered for potential exposure to STD with past partner. Problem Code: Z11.3; Problem Code Type: ICD-10; Not Available [facility] 4 05:34:27 Problem Notes None recorded. Procedures Surgical History Date Name Laterality Status Provider Name and Address Organization Details Recorded Time 12/25/2016 Date of Last Pap Smear completed ANCA FARLEY RN [facility], [place] - [facility] 09/16/2023 09:54:04 Imaging Results None recorded. Procedure Notes None recorded. Medical Equipment None Reported. Allergies Allergen ID Allergen Name Allergen Category Reaction Reaction Severity Criticality Documentation Date Start Date Code Code System Note Provider Name and Address Organization Details Recorded Time 82225 wasp venoms environme nt anaphylax is Not available Not available 09/04/20232019 27917 RxNorm ANCA FARLEY RN null, [place] - [facility] 09:49:32 Medications Name Sig Start Date [...] Not Available Not Available Not Avai lable Depo-Cardiac Nurse a 150 mg/mL intramuscul ar suspension Inject [...] Relief 50 mcg/actuati on nasal spray,suspe nsion Logan 2 spray into both nostrils twice a [...] Updated DateTime 4 170.81 cm 29.7 kg/m2 22869.1 4 g 97.3 [degF] 96 % 96 % 89 /min 17 /min 132 mm[Hg] 84 mm[Hg] Lianne Santiago MA [facility] 4 12:45:43 Social History Question Answer Notes LastModified by Organization Details LastModified Time Tobacco Smoking Status Current Every Day Smoker ANCA FARLEY RN null, [facility] 09/16/2023 11:28:57 What Is Your Level [...] Of Your Most Recent Tobacco Screening? 05/20/2024 [email or web address] Information not available 05/20/2024 At What Age [...] Has Tobacco Cessation Counseling Been Provided? Yes [email or web address] Information not available 05/16/2024 On What Date Was Tobacco Cessation Counseling Provided? 05/20/2024 [email or web address] Information not available 05/20/2024 Do You Or [...] quadrivalent, PF 09/16/2023 completed ANCA FARLEY RN [place], [place] - [facility] 09/16/2023 12:57:12 Tdap 12/26/2022 completed Not Available [facility] 05:34:44 COVID-19, mRNA, LNP-S, PF, 100 mcg/0.5mL dose or 50 mcg/0.25mL dose 06/13/2021 completed Not Available [facility] 09/04/2023 05:34:44 COVID-19, mRNA, LNP-S, PF, 100 mcg/0.5mL dose or 50 mcg/0.25mL dose 07/11/2021 completed Not Available [facility] 09/04/2023 05:34:45 Pneumococcal conjugate PCV20, polysaccharide [id number] conjugate, adjuvant, PF 05/08/2023 completed Not Available [facility] 09/04/2023 05:34:45 Past Encounters Encounter ID Performer Location Encounter Start Date Encounter Closed Date Diagnosis/Indication Diagnosis SNOMED-CT Code [id number] 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 [address],[facility] [address] [place] [address] 05/16/2024 09:51:31 05/16/2024 11:32:46 Acute pharyngitis [id number] JANNIE ROSENTHAL PA-C [address] [place] [address] 05/20/2024 11:07:21 05/20/2024 13:05:18 test positive [id number] Health Concerns Section Related Observation LastModified by Organization Detai ls LastModified Time None Recorded Concern Status LastModified by Organization Details LastModified Time None Recorded Payers Encounter Date Sequence Insurance Name Policy Number Policy Carbajal Covered Member ID Carbajal Member ID Guarantor Name 05/20/2024 1 [facility] (MEDICAID) Irvin Heller Alyssia [id number] Irvin Cade Notes Date Note Type Note Provider Name and Address Organization Details Recorded Time 05/20/2024 text/html HPI Notes: Ct is a [...] JANNIE ROSENTHAL PA-C [address], [place], [address], [facility], [facility]. 05/20/2024 13:23:33 OBGyn Episode No OBEpisode recorded.
--- OUTSIDE RECORDS SUMMARY | 2024-05-26 15:40 | XMS_ITS | Referral Summary ---
Author Organization [facility] Address [address] [place] [address] Care Team Providers Care [place] Actor Name Role Phone Unknown, Provider Primary Care Provider [phone] Social History Tobacco Use Types Packs/Day Years [...] C Antibody Negative Negative 08/17/2023 11:57 EDT [facility] Blood VENOUS BLOOD / Unknown 08/13/2023 13:23 EDT 08/14/2023 17:54 EDT Provider Outr Resulting Lab CHEMISTRY & BLOOD GAS ORDERABLES [facility] [address] [place] [address] from Last 3 Months or Most Recently Relevant to Health Maintenance Care Teams [place] Actor Relationship Specialty Start Date End Date Unknown, Provider, PCP - General 04/30/12
--- OUTSIDE RECORDS SUMMARY | 2024-05-26 15:40 | XMS_ITS | Clinical Summary ---
Author Organization [facility] Address [address] [place] [address] Care Team Providers Care Weather Strip Installer Name Role Phone Unknown, Provider Primary Care Provider [phone] Social History Tobacco Use Types Packs/Day Years [...] C Antibody Negative Negative 08/17/2023 11:57 EDT [facility] Blood VENOUS BLOOD / Unknown 08/13/2023 13:23 EDT 08/14/2023 17:54 EDT Provider Outr Resulting Lab CHEMISTRY & BLOOD GAS ORDERABLES [facility] [address] [place] [address] from Last 3 Months or Most Recently Relevant to Health Maintenance Care Teams Weather Strip Installer Relationship Specialty Start Date End Date Unknown, Provider, [facility] - General 04/30/12
--- OUTSIDE RECORDS SUMMARY | 2024-05-26 15:40 | XMS_ITS | Encounter Summary ---
Author Organization [facility] Address [address] [place] [address] Care Team Providers Care Patient Office Rep Name Role Phone Unknown, Provider Primary Care Provider Encounter Details Date Type Department Care Team (Latest Contact Info) Description 09/21/2023 Lab Requisition [facility] Pathology & Laboratory Medicine - [facility] [address] [place] [address] Brenda Huston FNP [address] [facility] [address] [place] [id number] Encounter for screening for human papillomavirus (HPV); [...] 16, PCR Negative Negative 10/06/2023 15:23 EST [facility] HPV18/45 RNA (HPV18/45) Negative Negative 10/06/2023 15:23 EST [facility] Pap Test CERVIX UTERI STRUCTURE / Unknown 09/16/2023 12:00 EST 09/30/2023 14:18 EST Brenda Huston [facility] MICROBIOLOGY - GENER AL ORDERABLES Performing Organization Address City/[facility] Co de Phone Number [facility] [address] [place] [address] * (ABNORMAL) HUMAN PAPILLOMAVIRUS (HPV) DETECTION-HIGH RISK TYPES (09/16/2023 12:00 EST) HPV other High Risk types, PCR Positive( A) Negative 10/08/2023 14:38 EST [facility] Comment:E6 OR E7 mRNA from o ne or more types of HPV types 16,18,31,33,35,39,45,51,52,56,58,59,66, and 68 is detected by building surveyor mediated amplification. High and intermediate risk HPV types are associated with most squamous intraepithelial lesions and cervical cancers. Pap Test CERVIX UTERI STRUCTURE / Unknown 09/16/2023 12:00 EST 09/30/2023 14:18 EST Brenda Huston [facility] MICROBIOLOGY - GENER AL ORDERABLES Performing Organization Address City/[facility]/ZIP Co de Phone Number [facility] [address] [place] [address] * PAP TEST (09/16/2023 12:00 EST) Specimens A. Cervix and/or Endocervix , ThinPrep Imaging System with Manual Evaluation 10/08/2023 14:38 EST [facility] Specimen Adequacy Satisfactory for Evaluation - transformation zone component present 10/08/2023 14:38 [facility] General Categorization Negative for intraepithelial lesion or malignancy 10/08/2023 14:38 [facility] Attestation . 10/08/2023 14:38 [facility] at 1438 Clinical History See below 10/08/20 14:38 [facility] HPV The result for the Human Papillomavirus (HPV) Detection-High Risk Types is Positive . E6 OR E7 mRNA from one or more types of HPV types 16,18,31,33,35,39 ,45,51,52,56,58,5 9,66, and 68 is detected by building surveyor mediated amplification. High and intermediate risk HPV types are associated with most squamous intraepithelial lesions and cervical cancers. Testing was performed on specimen [id number] and was resulted on 10/01/2023 1753 EST by [facility], LAB INSTRUMENT RESULTS IN 10/08/2023 14:38 [facility] Genotyping 16 & 18/45 The results for the HPV Genotypes 16 and 18/45 are Negative for the HPV16 RNA and Negative for the HPV18/45 RNA (HPV18/45). Testing was performed on specimen [id number] and was resulted on 10/06/2023 1523 EST by [facility], LAB INSTRUMENT RESULTS IN 10/08/2023 14:38 [facility] Performing Lab [facility] 10/08/2023 14:38 [facility] Scanned Images 10/08/2023 14:38 [facility] Pap Test CERVIX UTERI STRUCTURE / Unknown 09/16/2023 12:00 EST 09/21/2023 10:32 EST Brenda Huston LOG MANAGER PATHOLOGY ORDERABLES [facility] [address] [place] [address] documented in this encounter Visit Diagnoses Diagnosis Encounter for screening for human papillomavirus (HPV) Special screening examination for human papillomavirus (HPV) Encounter for screening for malignant neoplasm of cervix Screening for malignant neoplasm of the cervix Encounter for general adult medical examination without abnormal findings Unspecified general medical examination documented in this encounter Care Teams Patient Office Rep Relationship Specialty Start Date End Date Unknown, Provider, PCP - General 04/30/12 documented as of this encounter
--- OUTSIDE RECORDS SUMMARY | 2024-05-26 15:40 | XMS_ITS | Encounter Summary ---
Author Organization [facility] Address [address] [place] [address] Care Team Providers Care Button Inspector Name Role Phone Unknown, Provider Primary Care Provider [phone] Encounter Details Date Type Department Care Team (Late st Contact Info) Description 08/13/2023 Lab Requisition [facility] Pathology & Laboratory Medicine - [facility] [address] [place] [address] Outr Resulting Lab, Provider Social History Tobacco [...] gonorrhoeae Result Negative Negative 08/15/2023 14:59 EDT [facility] Chlamydia trachomatis Result Negative Negative 08/15/2023 14:59 EDT [facility] Urine URINE / Unknown 08/13/2023 1 3:23 EDT 08/14/2023 21:31 EDT Narrative [facility] - 08/15/2023 14:59 EDT A first catch urine specimen is acceptable for detection of Gonorrhea and Chlamydia, but might detect up to 10% fewer infections when compared with vaginal and endocervical swab samples. Provider Outr Resulting Lab MICROBIOLOGY - GENERAL ORDERABLES [facility] [address] [place] [address] documented in this encounter Visit Diagnoses Not on filedocumented in this encounter Care Teams Button Inspector Relationship Specialty Start Date End Date Unknown, Provider, PCP - General 04/30/12 documented as of this encounter
--- OUTSIDE RECORDS SUMMARY | 2024-05-26 15:41 | XMS_ITS | Encounter Summary ---
Author Organization [facility] Address [address] [place] [address] Care Team Providers Care Timber Appraiser Name Role Phone Unknown, Provider Primary Care Provider [phone] Encounter Details Date Type Department Care Team (Late st Contact Info) Description 05/16/2021 Lab Requisition [facility] Pathology & Laboratory Medicine - [facility] [address] [place] [address] Outr Resulting Lab, Provider Social History Tobacco [...] gonorrhoeae Result Negative Negative 05/17/2021 19:32 EDT [facility] Chlamydia trachomatis Result Negative Negative 05/17/2021 19:32 EDT [facility] Swab ENTIRE WALL OF CERVIX / Unknown 05/16/2021 13:30 EDT 05/16/2021 21:24 EDT Provider Outr Resulting Lab MICROBIOLOGY - GENERAL ORDERABLES [facility] [address] [place] [address] documented in this encounter Visit Diagnoses Not on filedocumented in this encounter Additional Health Concerns Infection Onset Date Last Indicated Resolved Time COVID-19 08/12/2022 08/12/2022 09/01/2022 22:1 5 EST documented as of this encounter Care Teams Timber Appraiser Relationship Specialty Start Date End Date Unknown, Provider, PCP - General 04/30/12 documented as of this encounter
--- OUTSIDE RECORDS SUMMARY | 2024-05-26 15:41 | XMS_ITS | Encounter Summary ---
Author Organization [facility] Address [address] [place] [address] Care Team Providers Care Cnc Service Technician Name Role Phone Unknown, Provider Primary Care Provider [phone] Encounter Details Date Type Department Care Team (Late st Contact Info) Description 09/06/2019 Lab Requisition [facility] Pathology & Laboratory Medicine - [facility] [address] [place] [address] Unknown, Provider, Social History Tobacco Use Types [...] gonorrhoeae Result Negative Negative 09/07/2019 15:08 EST [facility] Chlamydia trachomatis Result Negative Negative 09/07/2019 15:08 EST [facility] Swab CERVIX UTERI STRUCTURE / Unknown 09/05/2019 15:10 EST 09/06/2019 20:03 EST Provider Unknown MICROBIOLOGY - GENER AL ORDERABLES [facility] [address] [place] [address] documented in this encounter Visit Diagnoses Not on filedocumented in this encounter Additional Health Concerns Infection Onset Date Last Indicated Resolved Time COVID-19 08/12/2022 08/12/2022 09/01/2022 22:1 5 EST documented as of this encounter Care Teams Cnc Service Technician Relationship Specialty Start Date End Date Unknown, Provider, PCP - General 04/30/12 documented as of this encounter
--- OUTSIDE RECORDS SUMMARY | 2024-05-26 15:41 | XMS_ITS | Encounter Summary ---
Author Organization [facility] Address [address] [place] [address] Care Team Providers Care Vegetable Tier Name Role Phone Unavailable Primary Care Provider Unavailabl e Encounter Details Date Type Department Care Team (Late st Contact Info) Description 09/12/2004 Results Only [facility] [address] [place] [address] Mary Jane Tejeda, RESIDENTIAL COORDINATOR [address] [place] [address] Social History Tobacco Use Types [...] ? IRVIN COE ? Accession #: ? [id number] : ? 1985 (Age: 19) ??F ?Collect Date: ? 09/12/2004 Location: ? [facility] ? Receive Date: ? 09/16/2004 Provider: ?MARY JANE TEJEDA RESIDENTIAL COORDINATOR Copy to: ? Specimen/Source: ?ThinPrep Pap Test, Cervix Last Menstrual Period: ? First of Jul 2004 ? SPECIMEN ADEQUACY ? Satisfactory for Evaluation - transformation zone component present GENERAL CATEGORIZATION ? Negative for Intraepithelial Lesion or Malignancy ? Document reviewed and electronically signed by: ? MONALISA Maldonado(ASCP) ? Report Date: ??09/25/2004 10:17 End of Report [facility] 09/12/2004 09/16/2004 Mary Jane Tejeda RESIDENTIAL COORDINATOR PATHOLOGY ORDERABLE S [facility] [address] [place] [address] documented in this encounter Visit Diagnoses Not on filedocumented in this encounter
--- OUTSIDE RECORDS SUMMARY | 2024-05-26 15:41 | XMS_ITS | Encounter Summary ---
Author Organization [facility] Address [address] [place] [address] Care Team Providers Care Solid Waste Facility Operator Name Role Phone Unknown, Provider Primary Care Provider [phone] Encounter Details Date Type Department Care Team (Late st Contact Info) Description 08/13/2022 Lab Requisition [facility] Pathology & Laboratory Medicine - [facility] [address] [place] [address] Outr Resulting Lab, Provider Social History Tobacco [...] Priority Date/Time Associated Diagnosis Comments ZZCOVID-19 TEST [facility] PCR Today 08/12/2022 15:50 EDT COVID-19 TESTING Routine 08/12/2022 15:5 0 EDT documented in this encounter Results * COVID-19 TEST [facility] PCR (08/12/2022 15:50 EDT) Swab 08/12/2022 15:5 0 EDT 08/13/2022 16:19 EDT Provider Outr Resulting Lab MICROBIOLOGY - GENERAL ORDERABLES [facility] [address] [place] [address] * (ABNORMAL) COVID-19 TESTING (08/12/2022 15:50 EDT) COVID-19 rt-PCR Result Positive( AA) Negative 08/14/2022 11:18 EDT [facility] Comment: This test has not [...] was performed using the frederick SARS-CoV-2 assay ([facility] [facility] on the [place] [address] System Performing Lab [address] [facility] 08/14/2022 11:18 EDT [facility] Swab 08/12/2022 15:5 0 EDT 08/13/2022 16:19 EDT Provider Outr Resulting Lab MICROBIOLOGY - GENERAL ORDERABLES [facility] [address] [place] [address] documented in this encounter Visit Diagnoses Not on filedocumented in this encounter Additional Health Concerns Infection Onset Date Last Indicated Resolved Time COVID-19 08/12/2022 08/12/2022 09/01/2022 22:1 5 EST documented as of this encounter Care Teams Solid Waste Facility Operator Relationship Specialty Start Date End Date Unknown, Provider, PCP - General 04/30/12 documented as of this encounter
--- OUTSIDE RECORDS SUMMARY | 2024-05-26 15:41 | XMS_ITS | Encounter Summary ---
Author Organization [facility] Address [address] [place] [address] Care Team Providers Care Operations Assistant Name Role Phone Unavailable Primary Care Provider Unavailabl e Encounter Details Date Type Department Care Team (Late st Contact Info) Description 03/05/2010 Results Only [facility] - [facility] [place] [address], [place] [address] Jessica Gr [place], [place] [id number] Social History Tobacco Use Types Packs/Day Years [...] ? IRVIN COE ? Accession #: ? [id number] ? : ? 1985 (Age: 24) ??F [...] Gr CNM PATHOLOGY ORDERABLES [facility] [address] [place] [address] documented in this encounter Visit Diagnoses Not on filedocumented in this encounter
--- OUTSIDE RECORDS SUMMARY | 2024-05-26 15:41 | XMS_ITS | Encounter Summary ---
Author Organization [facility] Address [address] [place] [address] Care Team Providers Care Corporation Secretary Name Role Phone Unknown, Provider Primary Care Provider [phone] Encounter Details Date Type Department Care Team (Late st Contact Info) Description 12/25/2016 Results Only [facility] [phone] Dorie Clay MD [address] [place] [address] Social History Tobacco Use Types Packs/Day Years [...] ? IRVIN COE ? Accession #: ? [id number] ? : ? 1985 (Age: 31) ??F ?Collect Date: ? 12/25/2016 ? Location: ? [facility] ? Receive Date: ? 12/26/2016 ? Provider: DORIE CLAY MD Copy to: PEYTON TEJEDA AEROBICS TEACHER ? Final Report SPECIMEN ADEQUACY ? Satisfactory for Evaluation - transformation zone component present - scant squamous epithelial component secondary to excessive inflammation GENERAL CATEGORIZATION ? Negative for Intraepithelial Lesion or Malignancy ?? Previous Gynecologic Pathology: ASC-US: 2011 Infection History: Neg for HPV: 2011 Specimen/Source: ??Pap Test, Cervix, ThinPrep Imaging System with manual evaluation Document reviewed and electronically signed by: ? Ruth Del Cid, KORIN(ASCP)(IAC) ? Report ??Date: 12/31/2016 17:03 HPV with Pap Test ? Date Ordered: ? 12/31/2016 ? Status: ?? Signed Out ?Date Complete: ? 01/01/2017 ? By: ??System Interface ? Date Reported: ? 01/01/2017 ? Interpretation RESULT: Negative for HPV. No E6 or E7 mRNA is detected from HPV types 16,18,31,33,35, 39,45,51,52,56,58, 59,66, and 68 by pony rougher mediated amplification. Comments Document reviewed and electronically signed by: ? System Interface ? Report date: 01/01/2017 By the signature above, the attending physician certifies that he/she has personally conducted a gross and/or microscopic examination of the described specimens and rendered or confirmed the above diagnosis. End of Report [facility] 12/25/2016 12/26/2016 Dorie Clay MD PATHOLOGY ORDERABLES [facility] [address] [place] [address] documented in this encounter Visit Diagnoses Not on filedocumented in this encounter Care Teams Corporation Secretary Relationship Specialty Start Date End Date Unknown, Provider, PCP - General 04/30/12 documented as of this encounter
--- OUTSIDE RECORDS SUMMARY | 2024-05-26 15:41 | XMS_ITS | Encounter Summary ---
Author Organization [facility] Address [address] [place] [address] Care Team Providers Care Fur Puller Name Role Phone Unavailable Primary Care Provider Unavailabl e Encounter Details Date Type Department Care Team ([facility] st Contact Info) Description 04/22/2012 Results Only [facility] [phone] Shurki Newman MD [address] [place] [address] Social History Tobacco Use Types Packs/Day Years [...] ? IRVIN COE ? Accession #: ? [id number] ? : ? 1985 (Age: 26) ??F ?Collect Date: ? 04/22/2012 ? Location: ? [facility] ? Receive Date: ? 04/23/2012 ? Provider: SHUKRI NEWMAN MD Copy to: ? Final Report SPECIMEN ADEQUACY ? Satisfactory for Evaluation - transformation zone component present GENERAL CATEGORIZATION ? Epithelial Cell Abnormality INTERPRETATION ? Squamous Cell Abnormality - Atypical squamous cells, undetermined significance (ASC-US). EDUCATIONAL NOTES/RECOMMENDATI ONS ? [facility] recommends following the 2006 Consensus Guidelines for [...] types 16,18,31,33,35, 39,45,51,52,56,58, 59,66, and 68 by agent licensing clerk mediated amplification. Comments Document reviewed and electronically signed by: ? System Interface ? Report date: 05/03/2012 By the signature above, the attending physician certifies that he/she has personally conducted a gross and/or microscopic examination of the described specimens and rendered or confirmed the above diagnosis. End of Report [facility] 04/22/2012 04/23/2012 Shukri Newman MD PATHOLOGY ORDERABLES Performing Organization Address City/State/[facility] Co de Phone Number [facility] [address] [place] [address] documented in this encounter Visit Diagnoses Not on filedocumented in this encounter
--- OUTSIDE RECORDS SUMMARY | 2024-05-26 15:41 | XMS_ITS | Encounter Summary ---
Author Organization [facility] Address [address] [place] [address] Care Team Providers Care Automotive Sales Specialist Name Role Phone Unavailable Primary Care Provider Unavailabl e Encounter Details Date Type Department Care Team (Late st Contact Info) Description 09/15/2006 Results Only [facility] [address] [place] [address] Maury Welch [place] [id number] [place] [address] Social History Tobacco Use Types Packs/Day Years [...] ? IRVIN COE ? Accession #: ? [id number] : ? 1985 (Age: 21) ??F ?Collect Date: ? 09/15/2006 Location: ? [facility] ? Receive Date: ? 09/18/2006 Provider: ?MAURY MURRAYM Copy to: ? Specimen/Source: ?ThinPrep Pap Test, Cervix/Endocervix, processed on [employer] ThinPrep Imaging System, with manual evaluation Last [...] Welch CNM PATHOLOGY ORDERABLES Performing Organization Address City/State/[facility] Co de Phone Number [facility] [address] [place] [address] documented in this encounter Visit Diagnoses Not on filedocumented in this encounter
--- OUTSIDE RECORDS SUMMARY | 2024-05-26 15:41 | XMS_ITS | Encounter Summary ---
Author Organization [facility] Address [address] [place] [address] Care Team Providers Care County Supervisor Name Role Phone Unknown, Provider Primary Care Provider [phone] Encounter Details Date Type Department Care Team (Late st Contact Info) Description 04/29/2023 Lab Requisition [facility] Pathology & Laboratory Medicine - [facility] [address] [place] [address] Outr Resulting Lab, Provider Social History Tobacco [...] ID No fungi isolated 05/27/2023 9:29 EDT [facility] Fungal Smear No Fungi Seen 05/27/2023 9:29 EDT [facility] Swab ENTIRE FOOT / Unknown 04/28/2023 11:45 EDT 04/29/2023 18:05 EDT Provider Outr Resulting Lab MICROBIOLOGY - GENERAL ORDERABLES [facility] [address] [place] [address] documented in this encounter Visit Diagnoses Not on filedocumented in this encounter Care Teams County Supervisor Relationship Specialty Start Date End Date Unknown, Provider, PCP - General 04/30/12 documented as of this encounter
--- OUTSIDE RECORDS SUMMARY | 2024-05-26 15:41 | XMS_ITS | Encounter Summary ---
Author Organization [facility] Address [address] [place] [address] Care Team Providers Care College Specialist Name Role Phone Unknown, Provider Primary Care Provider [phone] Encounter Details Date Type Department Care Team (Late st Contact Info) Description 08/06/2021 Lab Requisition [facility] Pathology & Laboratory Medicine - [facility] [address] [place] [address] Outr Resulting Lab, Provider Social History Tobacco [...] Outr Resulting Lab MICROBIOLOGY - GENERAL ORDERABLES [facility] [address] [place] [address] * COVID-19 TESTING (08/05/2021 12:40 EDT) COVID-19 rt-PCR Result Negative Negative 08/07/2021 10:44 EDT [facility] Comment: This test has not [...] was performed using the frederick SARS-CoV-2 assay ([employer] on the [place] [address] System Performing Lab [place] [address] [facility] Lab 08/07/2021 10:44 EDT [facility] Swab 08/05/2021 12:4 0 EDT 08/06/2021 16:53 EDT Provider Outr Resulting Lab MICROBIOLOGY - GENERAL ORDERABLES Performing Organization Address City/State/[facility] Co de Phone Number [facility] [address] [place] [address] documented in this encounter Visit Diagnoses Not on filedocumented in this encounter Additional Health Concerns Infection Onset Date Last Indicated Resolved Time COVID-19 08/12/2022 08/12/2022 09/01/2022 22:1 5 EST documented as of this encounter Care Teams College Specialist Relationship Specialty Start Date End Date Unknown, Provider, PCP - General 04/30/12 documented as of this encounter
[2024-05-26 15:50] LABS: ALT 23 U/L (14-59); AST 12 U/L (15-37); Albumin 4.1 g/dL (3.4-5.0); Alkaline Phosphatase 87 U/L (46-116); Anion Gap 11.9 mmol/L (3-11); BUN 7 mg/dL (7-18); Bilirubin, Total 0.22 mg/dL (0.2-1.0); CO2 25.1 mmol/L (21.0-32.0); CREATININE 0.7 mg/dL (0.55-1.02); Chloride 106 mmol/L (98-107); Estimated GFR 114.16 (mL/min/1.73m2); Glucose 113 mg/dL (74-106); Potassium 3.8 mmol/L (3.5-5.1); Sodium 143 mmol/L (136-145); TSH (W/Ref FT4) 2.34 uIU/mL (0.36-3.74)
== END 2024-05-26 15:39 | disposition home or self-care (01) ==
LOC: LBO 15:39
PROVIDERS: Visit Provider Advanced Practice Midwife
DX: Z3A.01 Less than 8 weeks gestation of pregnancy (principal); E11.628 Type 2 diabetes mellitus with other skin complications; O24.911 Unspecified diabetes mellitus in pregnancy, first trimester
CPT/HCPCS: 36415; 80053; 85027; 83036; 84443

== ENCOUNTER 2024-06-13 12:41 | Emergency (ER) | payer MEDICAID, SELFPAY ==
[2024-06-13 12:54] VITALS: BP 117/72; PULSE 98; RESP 14; TEMP 36.6; O2SAT 99
--- NOTE | 2024-06-13 14:15 | DI.US_ITS ---
Exam(s) US OB 1ST TRIMESTER EXAM: US OB 1ST TRIMESTER CLINICAL HISTORY: BLEEDING PREG. COMPARISON: US POCUS EXAM from 06/02/2024 TECHNIQUE: Transabdominal Transvaginal first trimester obstetrical ultrasound performed. FINDINGS: Pelvic Measurments Uterus: 8.5 x 5.0 x 5.4 cm Rt Ovary: 3.3 x 1.9 x 1.8 cm. Complex cyst 1.9 x 1.2 cm. Lt Ovary: 1.5 x 0.9 x 1.3 cm. Left adnexal cyst measuring 2 cm. Biometry CRL: Not Seen Yolk Sac: Not seen Gest Sac: Irregular. 10 millimeters, unchanged in size from prior. Heart Rate: Not present IMPRESSION: Nonviable gestation. DATA REPOSITORY:
[2024-06-13 16:30] VITALS: BP 107/67; PULSE 93; RESP 16; TEMP 36.8; O2SAT 97
[2024-06-13 16:54] LABS: Bilirubin Negative (Negative); Blood Large (Negative); Clarity Sl Cloudy (Clear); Glucose Negative (Negative); Ketones Negative (Negative); Leukocyte Esterase Moderate (Negative); Nitrite Negative (Negative); Urobilinogen 0.2 mg/dL (Up to 0.2)
[2024-06-13 17:04] LABS: Bacteria Negative HPF (Negative); C & S Indicated? C&S Done As Ordered; Crystals Negative HPF (Negative); Epithelial Cells Many HPF (Negative); Mucus Negative (Negative); RBC 20-50 HPF (0-2)
[2024-06-13 17:04] LABS: Abs Immature Grans 0.14 10^3/uL (0.0-0.06); HCT 36.4 % (36.0-46.0); HGB 12.2 g/dL (11.2-15.7); MCHC 33.5 % (32.0-36.0); MCV 93 fL (80-95); MPV 9.5 fL (8.0-11.0); Platelet Count 404 10^3/uL (130-400); RBC 3.93 10^6/uL (3.93-5.22); RDW 13.2 % (11.7-14.6); WBC 15.69 10^3/uL (4.4-10.8)
--- NOTE | 2024-06-13 17:08 | NUR.NOTE ---
Referral faxed to [facility] for follow up this week for miscarriage/Beta Recheck
[2024-06-13 17:52] LABS: Absolute Lymphocyte Count 4.08 10^3/uL (1.2-3.4); Absolute Neutrophil Count 9.73 10^3/uL (1.2-6.7)
[2024-06-13 17:53] LABS: Absolute Eosinophil Count 0.16 10^3/uL (0.0-0.7); Absolute Monocyte Count 1.57 10^3/uL (0.1-0.8); Diff Comment Manual Differential; Myelocytes % 1; RBC Morphology Normal
[2024-06-13 18:30] LABS: HCG Quant, Pregnancy 3886 mIU/mL (1-3)
--- NOTE | 2024-06-13 20:37 | W.ED.GENAD ---
Discharge Plan Disposition Patient Disposition: Home Discharge Details Clinical Impression: Miscarriage, Vaginal bleeding in Primary Care Provider: Unknown,Unknown ED Provider: Adeline Ray Home Meds and New Rx's Prescriptions: No Action Plus Vitamin-Mineral 27 mg iron- 1 mg tablet 1 tab PO DAILY Qty: 90 5RF (DME) blood-glucose meter [FreeStyle Lite Meter] Kit See Rx Instructions .Route Qty: 1 0RF Rx Instructions: As directed (DME) FreeStyle Lite Strips Strip See Rx Instructions .Route Qty: 100 4RF Rx Instructions: QID (DME) lancets [FreeStyle Lancets] 28 gauge misc See Rx Instructions .Route Qty: 100 4RF Rx Instructions: QID alcohol swabs [Alcohol Prep Pads] Pads, Medicated 1 pad topical QID Qty: 100 5RF metformin 500 mg tablet 500 mg PO BID Qty: 60 6RF Patient Comments: Pt states metformin was increased to 1,000 mg BID but was causing cramping so pt has continued to take 500 mg BID Discharge Instructions Instructions: Miscarriage (DC) Additional Instructions: Please monitor symptoms closely. If your bleeding worsens, you are going through 2 pads per hour every 2 hours, then you need to return to the emergency department. If you have any severe pain or cramping or any concerns you can return to the emergency department for reevaluation A blood test, beta hCG, has been sent. This should be rechecked by her OB provider later this week to trend this. Discharge Data Discharge Date/Time-TO BE ENTERED AT DEPARTURE: 06/13/24 17:15 HPI General Date/Time Provider Initiated Documentation: 06/13/24 12:57. Limitations to Documentation: no limitations. Information obtained by: patient. HPI Narrative: 38-year-old female with past medical history of diabetes and recent diagnosis of presents for evaluation of vaginal bleeding. She has seen her PCP and had an identified intrauterine at approximately 8 weeks, she reports that shE started having some spotting yesterday. She reports that today the bleeding has increased and she is glad passing clots as well as some tissue. She denies any pain or cramping. She does think that since the more severe bleeding started this morning, it has slowed down quite a bit throughout the day Related Data Home Medications ?Medication ?Instructions ?Recorded ?Confirmed vitamin no.180-ferrous 1 tab PO DAILY #90 tabs 05/26/24 06/13/24 fumarate 27 mg-folic acid 1 mg tablet ( Plus Vitamin-Mineral) alcohol swabs (Alcohol Prep Pads) 1 pad topical QID #100 ea 05/27/24 06/13/24 blood sugar diagnostic (FreeStyle #100 ea 05/27/24 06/13/24 Lite Strips) blood-glucose meter (FreeStyle #1 ea 05/27/24 06/13/24 Lite Meter kit) lancets 28 gauge (FreeStyle #100 ea 05/27/24 06/13/24 Lancets) metformin 500 mg tablet 500 mg PO BID #60 tabs 05/30/24 06/13/24 Previous Rx's ?Medication ?Instructions ?Recorded vitamin no.180-ferrous 1 tab PO DAILY #90 tabs 05/26/24 fumarate 27 mg-folic acid 1 mg tablet ( Plus Vitamin-Mineral) alcohol swabs (Alcohol Prep Pads) 1 pad topical QID #100 ea 05/27/24 blood sugar diagnostic (FreeStyle #100 ea 05/27/24 Lite Strips) blood-glucose meter (FreeStyle #1 ea 05/27/24 Lite Meter kit) lancets 28 gauge (FreeStyle #100 ea 05/27/24 Lancets) metformin 500 mg tablet 500 mg PO BID #60 tabs 05/30/24 Allergies Allergy/AdvReac Type Severity Reaction Status Date / Time bee venom protein (honey bee) Allergy Severe Anaphylaxis Unverified 06/13/24 12:58 General Stated Complaint: AUTO SERVICE REPRESENTATIVE HARLEEN: 3 Exam Narrative Exam Narrative: Review of Systems: All systems reviewed & are unremarkable except as noted in HPI and below Well-developed, no acute distress NCAT PERRL, normal conjunctiva RRR Unlabored respiratory effort Nondistended abdomen , soft nontender exam deferred Course Vital Signs Vital signs: Vital Signs Temperature 36.6 C 06/13/24 12:54 Pulse 98 H 06/13/24 12:54 Respiratory Rate 14 06/13/24 12:54 Blood Pressure 117/72 06/13/24 12:54 Pulse Oximetry 99 06/13/24 12:54 Temperature 36.8 C 06/13/24 16:30 Temperature Source Temporal Artery Scan 06/13/24 16:30 Pulse 93 H 06/13/24 16:30 Respiratory Rate 16 08/19/24 16:30 Respiratory Effort Normal, Non-Labored 06/13/24 16:32 Respiratory Depth Normal 06/13/24 16:30 Respiratory Pattern Normal 06/13/24 16:30 Blood Pressure 107/67 06/13/24 16:30 Blood Pressure Mean 80 06/13/24 16:30 Blood Pressure Position Sitting 06/13/24 16:30 Pulse Oximetry 97 06/13/24 16:30 Oxygen Delivery Method Room Air 06/13/24 16:30 Oxygen Flow Rate 0 06/13/24 16:30 Pain Level 0 06/13/24 16:31 Lab/Test Results Lab/Test Results: 06/13/24 16:35 Urine - Clean Catch Urine Culture - Pending Laboratory Tests Range/Units 06/13/24 06/13/24 16:35 16:42 WBC (4.4-10.8) 10^3/uL 15.69 H RBC (3.93-5.22) 10^6/uL 3.93 Hgb (11.2-15.7) g/dL 12.2 Hct (36.0-46.0) % 36.4 MCV (80-95) fL 93 MCH (27.0-33.0) pg 31.0 MCHC (32.0-36.0) % 33.5 RDW (11.7-14.6) % 13.2 Plt Count (130-400) 10^3/uL 404 H MPV (8.0-11.0) fL 9.5 Immature Gran % See Differential Neutrophils % % 62.0 Lymphocytes % % 26.0 Monocytes % % 10.0 Eosinophils % % 1.0 Basophils % % 0.0 Myelocytes % 1 Nucleated RBC % (0.0-0.3) % 0.0 Absolute Neutrophils (1.2-6.7) 10^3/uL 9.73 H Absolute Lymphocytes (1.2-3.4) 10^3/uL 4.08 H Absolute Monocytes (0.1-0.8) 10^3/uL 1.57 H Absolute Eosinophils (0.0-0.7) 10^3/uL 0.16 Absolute Basophils (0.0-0.2) 10^3/uL 0.00 RBC Morphology Normal Beta HCG, Quant (1-3) mIU/mL 3886 H Urine Color (Yellow) Yellow Urine Clarity (Clear) Sl Cloudy Urine pH (5-8) 6.0 Ur Specific [place] (1.005-1.025) 1.010 Urine Protein (Neg-Trace) mg/dL Negative Urine Ketones (Negative) mg/dL Negative Urine Blood (Negative) Large H Urine Nitrite (Negative) Negative Urine Bilirubin (Negative) Negative Urine Urobilinogen (Up to 0.2) mg/dL 0.2 Ur Leukocyte Esterase (Negative) Moderate H Urine RBC (0-2) HPF 20-50 H Urine WBC (0-5) HPF 10-20 H Ur Epithelial Cells (Negative) HPF Many Urine Crystals (Negative) HPF Negative Urine Bacteria (Negative) HPF Negative Urine Mucus (Negative) Negative Ur Culture Indicated? C&S Done As Ordered Urine Glucose (Negative) mg/dL Negative POC- Test(urine) Positive Medical Decision Making Emergent evaluation of bleeding in first trimester . I reviewed the medical record and noted that the patient has been seen by AUTO SERVICE REPRESENTATIVE and did have a ihcws-[id number]-hasy ultrasound performed by them that did not demonstrate an intrauterine . Patient is not having any pain, but is reporting bleeding she reports that the bleeding has improved. Urinalysis demonstrates blood, no clear signs of infection. The beta is elevated at 3000. White blood cell count slightly elevated at 16 with a shift. Ultrasound was obtained and this does not demonstrate a yolk sac or any cardiac activity. Read by radiologist as a nonviable gestation. Discussed these findings with the patient. She is hemodynamically stable and not in any pain and not severely bleeding she is stable for discharge. She needs follow-up with OB in the next few days to repeat her beta and make sure her examination is stable. ER return precautions were discussed with the patient. Quality:[facility] Health Related Social Needs: No Data to Display PFSH All Active Problems Vaginal bleeding in (Acute) Miscarriage (Acute) BMI 30.0-30.9,adult (Acute) (Acute) Custody issue (Acute) W/ Ex around their teen boys. Very stressful. Was referred to [facility] 12/08/23. Loss of job (Acute) Problem with transportation (Acute) Lost car after she could not afford payments. Housing or economic circumstances (Acute) Staying with her mother (with her 2 teen boys) very stressful living situation/not sustainable. Working with [employer] around housing. Also referred to [facility] today. Social discord (Acute) Depression with anxiety (Acute) Alcohol use disorder in remission (Acute) stopped drinking 4 months ago Marijuana smoker, continuous (Acute) nightly use for sleep Tobacco dependence due to cigarettes (Acute) Type 2 diabetes mellitus with other skin complications (Acute) Tinea pedis of both feet (Acute) Medical History Right knee sprain Abdominal pain Uterine cramping Encounter for IUD removal Oral contraception initial prescription IUD (intrauterine device) in place (09/05/19) Mirena No significant past medical history Surgical History No significant past surgical history Social History Smoking/Tobacco Use Status: Current every day Tobacco Type: cigarettes Smoking risk assessment performed?: Yes Alcohol Intake: current Alcohol Intake frequency: holidays/special occasions only Drug use: Never Substance use type: does not use Do you feel safe at home: Yes Do you feel safe in your relationship?: Yes Female Reproductive History Menstrual Duration of menses: 3-5 days control method: none History History 3 Para 2 Hx # Term Pregnancies 2 Multiple births 0 Hx # Pregnancies 0 Ectopic pregnancies 0 AB induced 0 Hx Number of Living Children 2 AB spontaneous 0
== END 2024-06-13 17:15 | disposition home or self-care (01) ==
PROVIDERS: Emergency Provider Emergency Medicine
DX: O46.91 Antepartum hemorrhage, unspecified, first trimester (principal); O03.9 Complete or unspecified spontaneous abortion without complication
CPT/HCPCS: 36415; 81025; 99283; 76801; 81003; 81015; 84702; 85025; 87086

== ENCOUNTER 2024-06-22 14:07 | Outpatient (CLI) | payer MEDICAID, SELFPAY ==
[2024-06-22 13:58] LABS: HCG Quant, Pregnancy 439 mIU/mL (1-3)
== END 2024-06-22 14:08 | disposition home or self-care (01) ==
LOC: LBO 14:07
PROVIDERS: PCP Nurse Practitioner Family; Visit Provider Obstetrics & Gynecology
DX: O03.9 Complete or unspecified spontaneous abortion without complication (principal); E11.628 Type 2 diabetes mellitus with other skin complications
CPT/HCPCS: 36415; 84702

== ENCOUNTER 2024-08-05 09:38 | Emergency (ER) | payer MEDICAID, SELFPAY ==
[2024-08-05 09:43] VITALS: BP 125/78; PULSE 90; RESP 16; TEMP 36.9; O2SAT 98
--- NOTE | 2024-08-05 09:45 | DI.RAD_ITS ---
Exam(s) XR SHOULDER RT COMPLETE 2+V EXAM: XR SHOULDER RT COMPLETE 2+V CLINICAL HISTORY: Months of pain and limited ROM. TECHNIQUE: 2D digital imaging was performed. COMPARISON: No exams were available for comparison FINDINGS: Five views No evidence of fracture or dislocation or abnormal soft tissue calcifications. The subacromial space appears unremarkable and there no degenerative changes in the glenohumeral and AC joints. Bone dens ity normal. No osseous lesions. Ipsilateral clavicle appears unremarkable. IMPRESSION: No significant radiographic findings in the right shoulder. DATA REPOSITORY: RADIATION DOSE DELIVERED:
--- NOTE | 2024-08-05 10:10 | ED.GENADUL_ITS ---
Discharge Plan Disposition Patient Disposition: Home Condition: Stable Discharge Details Clinical Impression: Chronic pain in right shoulder, Type 2 diabetes mellitus with other skin complications Primary Care Provider: Brenda Huston ED Provider: Ann-Marie Zelaya Home Meds and New Rx's Prescriptions: No Action Plus Vitamin-Mineral 27 mg iron- 1 mg tablet 1 tab PO DAILY Qty: 90 5RF (DME) blood-glucose meter [FreeStyle Lite Meter] Kit See Rx Instructions .Route Qty: 1 0RF Rx Instructions: As directed (DME) FreeStyle Lite Strips Strip See Rx Instructions .Route Qty: 100 4RF Rx Instructions: QID alcohol swabs [Alcohol Prep Pads] Pads, Medicated 1 pad topical QID Qty: 100 5RF metformin 500 mg tablet 500 mg PO BID Qty: 60 6RF Patient Comments: Pt states metformin was increased to 1,000 mg BID but was causing cramping so pt has continued to take 500 mg BID (DME) lancets [OneTouch UltraSoft 2 Lancet] 30 gauge misc See Rx Instructions .Route Qty: 100 4RF Rx Instructions: QID Discharge Instructions Instructions: Shoulder Pain (DC) Additional Instructions: You were seen in the emergency department today for evaluation of shoulder pain. In our department a full physical examination performed and had an x-ray that did not show any abnormalities. You need to follow-up with your primary care provider at your scheduled visit to discuss next steps in workup and management. Please continue to go to physical therapy, you can use Tylenol and ibuprofen as needed for management of pain, thank you for allowing us to be part of your care. HPI General Date/Time Provider Initiated Documentation: 08/05/24 09:41 . Limitations to Documentation: no limitations . Information obtained by: patient and old records reviewed . HPI Narrative: HPI: This is a 39-year-old female patient with a history of diabetes presenting for evaluation of right shoulder pain. She reports that this pain has been present since January after she sustained a fall, states that she has been working with her physical therapist and her primary care provider who are concerned for a potential rotator cuff injury versus nerve injury. She reports that she has not reinjured the arm, has had no change in her pain, but has not yet had any imaging and wanted to be sure that there was nothing inside her arm that was broken. She reports that she sometimes uses Tylenol and ibuprofen for management of her symptoms, unfortunately missed her last physical therapy nam ointment as this injury is causing her difficulty with sleep. She reports difficulty with range of motion activities, has intermittent tingling and shooting pains, no sensory loss. Exam: Gen: Awake and alert, in no apparent distress HEENT: Non-icteric sclera Neck: Supple Lungs: No apparent respiratory distress, normal respiratory effort. CV: Appears well perfused Abdomen: Non-distended MSK: Moves 4 extremities without apparent limitation in ROM, with the exception of the right shoulder. The patient has reproduction of pain with flexion of the shoulder passively, no pain with extension or internal rotation. She does have pain with external rotation. She has generalized tenderness to palpation along the AC region, humeral head, and over the biceps tendon. No overlying skin changes noted. The patient has reproduction of her pain with all rotator cuff testing that is performed, including empty can test, external and internal rotation against resistance. Skin: Visualized skin without rashes, cyanosis. Neuro: Normal Gait, no obvious focal deficits or facial asymmetry. Speaks in full, clear sentences. Psych: Appropriate for situation. MDM: This is a 39-year-old female patient presenting for evaluation of shoulder pain. My differential includes but is not limited to rotator cuff injury, certainly considered nerve compression or radiculopathy, fracture, dislocation, AC joint sprain/separation I am reassured by the patient's lack of fever, overlying skin changes, and the duration of symptoms against septic arthritis, and the patient has no personal history of gout or other inflammatory arthropathy. Will obtain an x-ray image to evaluate for any abnormalities in the shoulder, and at this time the patient is not desiring of any medications for management of pain. ED Course: Independently interpreted the patient's x-ray imaging which shows no evidence of fracture, dislocation, or other osseous abnormality. These findings were shared with the patient, they recommended keeping her follow-up appointment with her primary care provider to just discuss next steps in management and workup. Her symptoms are likely due to sprain/strain or rotator cuff abnormalities. At this time, the patient has had a full medical evaluation and is safe for discharge to home. They are hemodynamically stable, ambulatory, and tolerating PO. They are understanding of the follow-up plan and return precautions. They left our facility without incident. Ann-Marie Zelaya MD Related Data Home Medications ?Medication ?Instructions ?Recorded ?Confirmed vitamin no.180-ferrous 1 tab PO DAILY #90 tabs 05/26/24 08/05/24 fumarate 27 mg-folic acid 1 mg tablet ( Plus Vitamin-Mineral) alcohol swabs (Alcohol Prep Pads) 1 pad topical QID #100 ea 05/27/24 08/05/24 blood sugar diagnostic (FreeStyle #100 ea 05/27/24 08/05/24 Lite Strips) blood-glucose meter (FreeStyle #1 ea 05/27/24 08/05/24 Lite Meter kit) metformin 500 mg tablet 500 mg PO BID #60 tabs 05/30/24 08/05/24 lancets 30 gauge (OneTouch #100 ea 06/28/24 08/05/24 UltraSoft 2 Lancet) Previous Rx's ?Medication ?Instructions ?Recorded vitamin no.180-ferrous 1 tab PO DAILY #90 tabs 05/26/24 fumarate 27 mg-folic acid 1 mg tablet ( Plus Vitamin-Mineral) alcohol swabs (Alcohol Prep Pads) 1 pad topical QID #100 ea 05/27/24 blood sugar diagnostic (FreeStyle #100 ea 05/27/24 Lite Strips) blood-glucose meter (FreeStyle #1 ea 05/27/24 Lite Meter kit) metformin 500 mg tablet 500 mg PO BID #60 tabs 05/30/24 lancets 30 gauge (OneTouch #100 ea 06/28/24 UltraSoft 2 Lancet) Allergies Allergy/AdvReac Type Severity Reaction Status Date / Time bee venom protein (honey bee) Allergy Severe Anaphylaxis Unverified 08/05/24 09:48 General Stated Complaint: Orthopedic HARLEEN: 4 Course Vital Signs Vital signs: Vital Signs Temperature 36.9 C 08/05/24 09:43 Pulse 90 08/05/24 09:43 Respiratory Rate 16 08/05/24 09:43 Blood Pressure 125/78 08/05/24 09:43 Pulse Oximetry 98 08/05/24 09:43 Temperature 36.9 C 08/05/24 09:43 Temperature Source Oral 08/05/24 09:43 Pulse 90 08/05/24 09:43 Respiratory Rate 16 08/05/24 09:43 Respiratory Effort Normal, Non-Labored 08/05/24 09:49 Blood Pressure 125/78 08/05/24 09:43 Blood Pressure Position Sitting 08/05/24 09:43 Pulse Oximetry 98 08/05/24 09:43 Oxygen Delivery Method Room Air 08/05/24 09:43 Oxygen Flow Rate 0 08/05/24 09:43 Pain Level 4 08/05/24 09:53 Comment Pain worse w/ movement 08/05/24 09:43 Medical Decision Making Quality:SDOH Health Related Social Needs: No Data to Display PFSH All Active Problems (Updated 08/05/24 @ 11:27 by Ann-Marie Zelaya MD) Chronic pain in right shoulder (Acute) BMI 30.0-30.9,adult (Acute) (Acute) Custody issue (Acute) W/ Ex around their teen boys. Very stressful. Was referred to [facility] ([place] 12/08/23. Loss of job (Acute) Problem with transportation (Acute) Lost car after she could not afford payments. Housing or economic circumstances (Acute) Staying with her mother (with her 2 teen boys) very stressful living situation/not sustainable. Working with [employer] around housing. Also referred to [facility] today. Social discord (Acute) Depression with anxiety (Acute) Alcohol use disorder in remission (Acute) stopped drinking 4 months ago Marijuana smoker, continuous (Acute) nightly use for sleep Tobacco dependence due to cigarettes (Acute) Type 2 diabetes mellitus with other skin complications (Acute) Tinea pedis of both feet (Acute) Medical History Right knee sprain Abdominal pain Uterine cramping Encounter for IUD removal Oral contraception initial prescription IUD (intrauterine device) in place (09/05/19) Mirena No significant past medical history Surgical History No significant past surgical history Social History Smoking/Tobacco Use Status: Current every day Tobacco Type: cigarettes Smoking risk assessment performed?: Yes Alcohol Intake: current Alcohol Intake frequency: holidays/special occasions only Drug use: Daily Substance use type: marijuana Details: At bedtime Do you feel safe at home: Yes Do you feel safe in your relationship?: Yes Female Reproductive History Menstrual Duration of menses: 3-5 days control method: none History History 3 Para 2 Hx # Term Pregnancies 2 Multiple births 0 Hx # Pregnancies 0 Ectopic pregnancies 0 AB induced 0 Hx Number of Living Children 2 AB spontaneous 0
[2024-08-05 11:48] VITALS: BP 122/59; PULSE 77; RESP 16; O2SAT 98
== END 2024-08-05 11:52 | disposition home or self-care (01) ==
PROVIDERS: Emergency Provider Emergency Medicine; PCP Nurse Practitioner Family
DX: M25.511 Pain in right shoulder (principal); E11.9 Type 2 diabetes mellitus without complications; F17.210 Nicotine dependence, cigarettes, uncomplicated; Z79.84 Long term (current) use of oral hypoglycemic drugs
CPT/HCPCS: 99283; 73030

== ENCOUNTER 2024-08-31 02:06 | Outpatient (CLI) | payer MEDICAID, SELFPAY ==
--- NOTE | 2024-08-31 10:50 | DI.MRI_ITS ---
Exam(s) MR UPPER JOINT RT WO EXAM: MR UPPER JOINT RT WO CLINICAL HISTORY: PAIN RT SHOULDER JOINT, M25.511, UNABLE TO LIFT RT ARM, RADICULOPATHY. TECHNIQUE: Multiplanar multisequence MRI was performed. COMPARISON: CR XR SHOULDER RT COMPLETE 2+V from 08/05/2024 FINDINGS: The examination is limited due to patient motion artifact. BONES: There is no fracture or contusion pattern. JOINTS: The acromioclavicular joint is normal. The glenohumeral joint is normal. TENDONS: Supraspinatus: Tendinosis is seen in the supraspinatus tendon at its insertion site posteriorly. No evidence of a full-thickness tear. Infraspinatus: Unremarkable. Subscapularis: Unremarkable. Teres Minor: Unremarkable. Biceps and [place]: There is mild hyperintense signal seen around the long head of the biceps tendon w hich may represent a tenosynovitis. No evidence of a biceps tendon tear. MUSCLES: Unremarkable. GLENOID LABRUM: Unremarkable on this noncontrast examination. SOFT TISSUES: Unremarkable. LIGAMENTS: Unremarkable. OTHER: Subacromial and subdeltoid bursae are unremarkable. IMPRESSION: 1. The examination is limited due to patient motion artifact. 2. There is tendinosis of the supraspinatus tendon without evidence of a rotator cuff tear. 3. There does appear to be mild hyperintense signal seen around the long head of the biceps tendon emanuel ggesting tenosynovitis. DATA REPOSITORY:
== END 2024-08-31 02:26 ==
LOC: DI 02:06
PROVIDERS: PCP Nurse Practitioner Family; Visit Provider Nurse Practitioner Family
DX: M67.813 Other specified disorders of tendon, right shoulder (principal)
CPT/HCPCS: 73221

== ENCOUNTER 2024-09-01 13:36 | Outpatient (REF) | payer MEDICAID, SELFPAY ==
--- NOTE | 2024-09-01 13:30 | PAPFT_PTH ---
PATIENT: Irvin Cade LOC: [facility] U#:[id number] AGE/SX: 39/F ROOM: RE09/01/[address]: Jessie Souza : 1985 BED: DIS: 09/01/2024 SPEC #: [id number] RECD: 09/01/24 18:15 STATUS: DIAN REQ #: [id number] SHERRY: 09/01/24 13:[address]: Jessie Souza DEPT: [facility] Cytology RECD BY: Alexandra Shea ENTERED: 09/01/24 18:15 SP TYPE: PAPFT OTHR DR: Brenda Huston Tissues: 1 - CX/ENDOCX FOR PAP SMEARS Procedures: PAP THIN PREP/UVM Screening HPV DNA PROBE Comments: [id number] (HPV 16 & 18/45)
[2024-09-02 13:07] LABS: Chlamydia Result Negative (Negative); GC Result Negative (Negative)
== END 2024-09-01 13:37 | disposition home or self-care (01) ==
LOC: LBN 13:36
PROVIDERS: PCP Nurse Practitioner Family; Visit Provider Obstetrics & Gynecology Gynecology
DX: Z11.3 Encounter for screening for infections with a predominantly sexual mode of transmission (principal); N89.8 Other specified noninflammatory disorders of vagina; R87.810 Cervical high risk human papillomavirus (HPV) DNA test positive
CPT/HCPCS: 87491; 87591; 88142; 87480; 87510; 87624; 87660

== ENCOUNTER 2024-10-27 13:55 | Outpatient (REF) | payer MEDICAID, SELFPAY ==
--- NOTE | 2024-10-27 13:55 | CER_PTH ---
PATIENT: Irvin Cade LOC: [facility] U#:[id number] AGE/SX: 39/F ROOM: RE10/27/[address]: Jessie Souza : 1985 BED: DIS: 10/27/2024 SPEC #: [id number] RECD: 10/28/24 12:48 STATUS: DIAN REDwain #: [id number] SHERRY: 10/27/24 13:[address]: Jessie Souza DEPT: Surgical Specimen RECD BY: Alexandra Shea ENTERED: 10/28/24 12:49 SP TYPE: CER OTHR DR: Brenda Huston Tissues: 1 - CX/ENDOCX FOR PAP SMEARS 2 - ENDOCERVICAL BX/CURRETTE Procedures: GROSS AND MICRO LEVEL 4 Comments: [id number]
== END 2024-10-27 13:56 | disposition home or self-care (01) ==
LOC: LBN 13:55
PROVIDERS: PCP Nurse Practitioner Family; Visit Provider Obstetrics & Gynecology Gynecology
DX: N72 Inflammatory disease of cervix uteri (principal); D26.0 Other benign neoplasm of cervix uteri; Z12.4 Encounter for screening for malignant neoplasm of cervix; R87.810 Cervical high risk human papillomavirus (HPV) DNA test positive; Z98.890 Other specified postprocedural states
CPT/HCPCS: 88305

== ENCOUNTER 2024-12-30 18:56 | Outpatient (REF) | payer MEDICAID, SELFPAY ==
[2024-12-30 22:08] LABS: HCG Quant, Pregnancy 2 mIU/mL (1-3)
== END 2024-12-30 18:57 | disposition home or self-care (01) ==
LOC: LBN 18:56
PROVIDERS: PCP Nurse Practitioner Family; Visit Provider Physician Assistant Medical
DX: N92.5 Other specified irregular menstruation (principal)
CPT/HCPCS: 84702

== ENCOUNTER 2025-06-15 11:53 | Outpatient (REF) | payer MEDICAID, SELFPAY ==
[2025-06-15 17:55] LABS: Glucose Negative (Negative)
[2025-06-15 18:01] LABS: RBC Negative HPF (0-2)
[2025-06-15 18:15] LABS: PROTEIN < 6.0 mg/dL
== END 2025-06-15 11:54 | disposition home or self-care (01) ==
LOC: NCHCN 11:53
PROVIDERS: PCP Nurse Practitioner Family; Visit Provider Nurse Practitioner Family
DX: R10.31 Right lower quadrant pain (principal); E11.9 Type 2 diabetes mellitus without complications
CPT/HCPCS: 81003; 81015; 82565; 84156

== ENCOUNTER 2025-09-15 15:28 | Outpatient (REF) | payer MEDICAID, SELFPAY ==
[2025-09-15 22:03] LABS: TSH (W/Ref FT4) 1.90 uIU/mL (0.55-4.78)
[2025-09-15 22:26] LABS: Hemoglobin A1C 6.2 % (<5.7)
== END 2025-09-15 15:29 | disposition home or self-care (01) ==
LOC: NCHCN 15:28
PROVIDERS: PCP Nurse Practitioner Family
DX: E11.9 Type 2 diabetes mellitus without complications (principal); R53.82 Chronic fatigue, unspecified
CPT/HCPCS: 83036; 84443